=== PATIENT | male | born 1980 | race African-American/Black ===

== ENCOUNTER 2016-07-29 08:53 | Emergency (ER) | payer OTHER ==
[2016-07-29 08:58] VITALS: BP 145/74; PULSE 77; TEMP 98; BMI 27.7
--- NOTE | 2016-07-29 09:42 | PDOC ---
History of Present Illness - General History Source: Patient Exam Limitations: No Limitations - History of Present Illness Initial Comments: 07/29/16 11:47 The patient is a 35 year old male with a significant past medical history of migraines, anxiety, substance abuse, who presents to the ED requesting detox. Patient states he used cocaine and drank alcohol last night. On labs, patient was not shown to have alcohol, or cocaine in his system. Patient denies chest pain, SOB, fever, chills, nausea, vomiting. <Lance Clay - Last Filed: 07/29/16 11:47> <Cristina Dennison - Last Filed: 07/29/16 11:54> - General Chief Complaint: Substance Abuse Stated Complaint: WITHDRAW Time Seen by Provider: 07/29/16 09:21 Past History <Lance Clay - Last Filed: 07/29/16 11:47> - Past Medical History Anemia: No Asthma: No Cancer: No Cardiac Disorders: No CVA: No COPD: No CHF: No Dementia: No Diabetes: No GI Disorders: No Disorders: No HTN: Yes Hypercholesterolemia: No Kidney Stones: No Psychiatric Problems: Yes (BIPOLAR; MIGRAINE;SCHIZOAFFECTIVEDISORDER) Suicide Attempt (Hx): No Seizures: No Thyroid Disease: No - Surgical History Abdominal Surgery: No Appendectomy: No Cardiac Surgery: No Cholecystectomy: No Lung Surgery: No Neurologic Surgery: No Orthopedic Surgery: No - Reproductive History Testicular Surgery: No - Immunization History Immunization Up to Date: Yes - Psycho/Social/Smoking Cessation Hx Anxiety: Yes Suicidal Ideation: No Smoking History: Never smoked Have you smoked in the past 12 months: Yes Number of Cigarettes Smoked Daily: 20 Information on smoking cessation initiated: No 'Breaking Loose' booklet given: 01/04/16 Hx Alcohol Use: Yes Drug/Substance Use Hx: Yes Substance Use Type: Alcohol, Cocaine, Marijuana Hx Substance Use Treatment: Yes <Cristina Dennison - Last Filed: 07/29/16 11:54> - Past Medical History Allergies/Adverse Reactions: Allergies Allergy/AdvReac Type Severity Reaction Status Date / Time No Known Allergies Allergy Verified 07/29/16 08:58 Home Medications: Ambulatory Orders NK [No Known Home Medication] 07/29/16 Review of Systems - Review of Systems Able to Perform ROS?: Yes Comments:: 07/29/16 11:47 GENERAL/CONSTITUTIONAL: No fever or chills. No weakness. HEAD, EYES, EARS, NOSE AND THROAT: No change in vision. No ear pain or discharge. No sore throat. CARDIOVASCULAR: No chest pain or shortness of breath. RESPIRATORY: No cough, wheezing, or hemoptysis. GASTROINTESTINAL: No nausea, vomiting, diarrhea or constipation. GENITOURINARY: No dysuria, frequency, or change in urination. MUSCULOSKELETAL: No joint or muscle swelling or pain. No neck or back pain. SKIN: No rash NEUROLOGIC: No headache, vertigo, loss of consciousness, or change in strength/ sensation. ENDOCRINE: No increased thirst. No abnormal weight change. HEMATOLOGIC/LYMPHATIC: No anemia, easy bleeding, or history of blood clots. ALLERGIC/IMMUNOLOGIC: No hives or skin allergy. <Lance Clay - Last Filed: 07/29/16 11:47> *Physical Exam - Vital Signs Last Vital Signs Temp Pulse Resp BP Pulse Ox 98 F 77 18 145/74 100 07/29/16 08:57 07/29/16 08:57 07/29/16 08:57 07/29/16 08:57 07/29/16 08:57 - Physical Exam Comments: 07/29/16 11:47 GENERAL: Awake, alert, and fully oriented, in no acute distress. Pretending to be falling asleep. HEAD: No signs of trauma EYES: PERRLA, EOMI, sclera anicteric, conjunctiva clear ENT: Auricles normal inspection, hearing grossly normal, nares patent, oropharynx clear without exudates. Moist mucosa NECK: Normal ROM, supple, no lymphadenopathy, JVD, or masses LUNGS: Breath sounds equal, clear to auscultation bilaterally. No wheezes, and no crackles HEART: Regular rate and rhythm, normal S1 and S2, no murmurs, rubs or gallops ABDOMEN: Soft, nontender, normoactive bowel sounds. No guarding, no rebound. No masses EXTREMITIES: Normal range of motion, no edema. No clubbing or cyanosis. No cords, erythema, or tenderness. Hands: no tremors. NEUROLOGICAL: Cranial nerves II through XII grossly intact. Normal speech, normal gait SKIN: Warm, Dry, normal turgor, no rashes or lesions noted. <Lance Clay - Last Filed: 07/29/16 11:47> - Vital Signs Last Vital Signs Temp Pulse Resp BP Pulse Ox 98 F 77 18 145/74 100 07/29/16 08:57 07/29/16 08:57 07/29/16 08:57 07/29/16 08:57 07/29/16 08:57 <Cristina Dennison - Last Filed: 07/29/16 11:54> ED Treatment Course - LABORATORY CBC & Chemistry Diagram: 07/29/16 09:42 07/29/16 10:24 - ADDITIONAL ORDERS Additional order review: Laboratory Results 07/29/16 07/29/16 07/29/16 10:24 10:24 10:24 Sodium 145 Potassium 3.8 Chloride 106 Carbon Dioxide 31 Anion Gap 8 BUN 17 Creatinine 1.0 Creat Clearance w eGFR > 60 Random Glucose 75 D Calcium 8.9 Total Bilirubin 0.4 AST 20 D ALT 21 D Alkaline Phosphatase 82 Total Protein 6.9 Albumin 3.9 Opiates Screen Negative Methadone Screen Negative Barbiturate Screen Negative Phencyclidine Screen Positive Ur Amphetamines Screen Negative MDMA (Ecstasy) Screen Negative Benzodiazepines Screen Negative Cocaine Screen Negative U Marijuana (THC) Screen Negative Alcohol, Quantitative < 5.0 07/29/16 09:42 RBC 4.57 MCV 90.5 MCHC 32.9 RDW 13.6 MPV 8.7 Neutrophils % 64.9 Lymphocytes % 23.6 Monocytes % 7.5 Eosinophils % 3.0 Basophils % 1.0 <Lance Clay - Last Filed: 07/29/16 11:47> - LABORATORY CBC & Chemistry Diagram: 07/29/16 09:42 07/29/16 10:24 <Cristina Dennison - Last Filed: 07/29/16 11:54> Medical Decision Making - Medical Decision Making 07/29/16 11:52 Patient states he needs detox from cocaine and alcohol. His tox screen was negative for both, but positive for PCP. He has no hand tremors, no tongue fasciculations. Sleeping comfortably in bed. No signs of withdrawal. Stable for DC home. Will give him information for [facility] if he wishes to go in the future, but there is no emergent need for transfer there at present. <Cristina Dennison - Last Filed: 07/29/16 11:54> *DC/Admit/Observation/Transfer - Attestations Scribe Attestion: 07/29/16 11:48 Documentation prepared by Lance Clay, acting as medical parasitologist for Cristina Dennison MD, MD. <Lance Clay - Last Filed: 07/29/16 11:47> - Discharge Dispostion Admit: No <Cristina Dennison - Last Filed: 07/29/16 11:54> Diagnosis at time of Disposition: Substance abuse - Discharge Dispostion Disposition: HOME Condition at time of disposition: Stable - Patient Instructions Printed Discharge Instructions: DI for Drug Abuse and Drug Addiction Additional Instructions: [place] [id number]
[2016-07-29 10:07] LABS: MCH 29.8 pg (25.7-33.7); MCHC 32.9 g/dl (32.0-35.9); MEAN CELL VOLUME 90.5 fl (80-96); MEAN PLT VOLUME 8.7 fl (7.5-11.1); NEUTROPHILS 64.9 % (42.8-82.8); PLATELET COUNT 198 K/MM3 (134-434); RDW 13.6 % (11.9-15.9)
[2016-07-29 10:46] LABS: ALBUMIN 3.9 g/dl (3.4-5.0); ALK PHOS 82 U/L (45-117); ANION GAP 8 (8-16); BILIRUBIN,TOTAL 0.4 mg/dL (0.2-1.0); CALCIUM 8.9 mg/dL (8.5-10.1); CO2 31 mmol/L (21-32); GLUCOSE,RANDOM 75 mg/dL (74-106); SGOT/AST 20 U/L (15-37); SGPT/ALT 21 U/L (12-78); TOT PROT 6.9 g/dl (6.4-8.2)
[2016-07-29 11:21] LABS: URINE MARIJUANA THC NEGATIVE ng/ml (CUTOFF=50)
--- NOTE | 2016-08-01 17:19 | EKG ---
Test Reason : Blood Pressure : / mmHG Vent. Rate : 062 BPM Atrial Rate : 062 BPM P-R Int : 152 ms QRS Dur : 082 ms QT Int : 418 ms P-R-T Axes : 046 049 058 degrees QTc Int : 424 ms NORMAL SINUS RHYTHM WITH SINUS ARRHYTHMIA NORMAL ECG NO PREVIOUS ECGS AVAILABLE Confirmed by CELI OLMEDO MD ([id number]) on 08/01/2016 5:18:48 PM Referred By: Confirmed By:CELI OLMEDO MD
== END 2016-07-29 12:19 | disposition home or self-care (01) ==
LOC: JER 08:53
DX: F14.10 Cocaine abuse, uncomplicated (principal); F10.10 Alcohol abuse, uncomplicated; F31.9 Bipolar disorder, unspecified; F25.9 Schizoaffective disorder, unspecified; G43.909 Migraine, unspecified, not intractable, without status migrainosus
CPT/HCPCS: 36415; 80053; 80307; 85025; 93005; 93010; 99284-25

== ENCOUNTER 2016-09-07 20:44 | Emergency (ER) | payer OTHER ==
[2016-09-07 21:01] VITALS: BP 134/70; PULSE 92; TEMP 98.1; BMI 27.8
[2016-09-07] MEDS ORDERED: ACETAMINOPHEN 325 MG TABLET (FP) PO ONE (21:51)
--- NOTE | 2016-09-07 21:51 | PDOC ---
History of Present Illness - General Chief Complaint: Back Pain Stated Complaint: BACK PAIN Time Seen by Provider: 09/07/16 21:42 History Source: Patient Exam Limitations: Intoxication - History of Present Illness Initial Comments: CHIEF COMPLAINT: 36 y/o afebrile male with no significant PMH c/o low back pain for a few days. HISTORY OF PRESENT ILLNESS: He states he wasn't doing anything when it started. He hasn't taken anything for the pain. He denies trauma to back, fall , saddle anesthesia, numbness/tingling to toes or fingers. The history and ROS were very difficulty to obtain secondary to the fact that the patient had admittedly smoked 5 blunts prior to coming to the ER. Vital signs on arrival are within normal limits. REVIEW OF SYSTEMS: GENERAL/CONSTITUTIONAL: No fever MUSCULOSKELETAL: +back pain SKIN: No rash or easy bruising. NEUROLOGIC: No headache. PHYSICAL EXAM: GENERAL: The patient is alert to verbal stimulation. The patient is verbal only after sternal rub. He smells of marijuana. HEAD: Normal with no signs of trauma. ABDOMEN: Soft, non-distended, non-tender even to deep palpation, no hepatomegaly or splenomegaly, no masses. BACK: Minimal TTP of left lumbar paravertebral muscles. No TTP of midline lumbar spine. No step offs of lumbar spine. EXTREMITIES: Normal range of motion, no edema. NEUROLOGICAL: normal gait. CN II-XII grossly intact. No saddle anesthesia. SKIN: Warm, dry, normal turgor, no rashes or lesions noted. Past History - Past Medical History Allergies/Adverse Reactions: Allergies Allergy/AdvReac Type Severity Reaction Status Date / Time No Known Allergies Allergy Verified 09/07/16 20:58 Home Medications: Ambulatory Orders NK [No Known Home Medication] 07/29/16 Anemia: No Asthma: No Cancer: No Cardiac Disorders: No CVA: No COPD: No CHF: No Dementia: No Diabetes: No GI Disorders: No Disorders: No HTN: Yes Hypercholesterolemia: No Kidney Stones: No Psychiatric Problems: Yes (BIPOLAR; MIGRAINE;SCHIZOAFFECTIVEDISORDER) Suicide Attempt (Hx): No Seizures: No Thyroid Disease: No - Surgical History Abdominal Surgery: No Appendectomy: No Cardiac Surgery: No Cholecystectomy: No Lung Surgery: No Neurologic Surgery: No Orthopedic Surgery: No - Reproductive History Testicular Surgery: No - Immunization History Immunization Up to Date: Yes - Psycho/Social/Smoking Cessation Hx Anxiety: Yes Suicidal Ideation: No Smoking History: Never smoked Have you smoked in the past 12 months: Yes Number of Cigarettes Smoked Daily: 20 Information on smoking cessation initiated: No 'Breaking Loose' booklet given: 01/04/16 Hx Alcohol Use: No Drug/Substance Use Hx: No Substance Use Type: Alcohol, Cocaine, Marijuana Hx Substance Use Treatment: Yes Trauma Specific PMHX - Complaint Specific PMHX Arthritis: No *Physical Exam - Vital Signs Last Vital Signs Temp Pulse Resp BP Pulse Ox 98.1 F 92 H 14 134/70 96 09/07/16 20:58 09/07/16 20:58 09/07/16 20:58 09/07/16 20:58 09/07/16 20:58 Medical Decision Making - Medical Decision Making A/P: 36 y/o obese male with atraumatic muscular left low back pain without sciatica. Plan is as follows: 1. PO tylenol The patient will be discharged to home. Suggested he take tylenol or motrin at home for the pain, stretch and use heating pad for comfort. Pt instructed to f/ u with Dr. Ledezma within 1 week and return to the ER with any worsening or concerning symptoms. The patient verbalizes understanding of all instructions, has no further questions and is awaiting discharge. *DC/Admit/Observation/Transfer Diagnosis at time of Disposition: Back pain Qualifiers: Back pain location: low back pain Chronicity: acute Back pain laterality: left Sciatica presence: without sciatica Qualified Code(s): M54.5 - Low back pain - Referrals Referrals: Gael Ledezma MD [Staff Physician] - - Patient Instructions Printed Discharge Instructions: DI for Low Back Pain Additional Instructions: Discharge instructions: -Take tylenol or motrin for pain -Apply heat to low back to help with pain -Follow up with Dr. Ledezma within 1 week -Return to the ER with any worsening or concerning symptoms
[2016-09-07] MEDS ORDERED: ACETAMINOPHEN 325 MG TABLET (FP) ONE (22:02)
== END 2016-09-07 22:07 | disposition home or self-care (01) ==
LOC: JERFT 20:44
DX: M54.5 Low back pain (principal); I10 Essential (primary) hypertension; F31.9 Bipolar disorder, unspecified; F25.9 Schizoaffective disorder, unspecified; F12.10 Cannabis abuse, uncomplicated
CPT/HCPCS: 99281-25

== ENCOUNTER 2016-09-30 23:07 | Emergency (ER) | payer OTHER ==
[2016-09-30 23:38] VITALS: BP 161/86; PULSE 76; TEMP 98.3; BMI 34.0
--- NOTE | 2016-09-30 23:56 | PDOC ---
History of Present Illness - General History Source: Patient Exam Limitations: No Limitations - History of Present Illness Initial Comments: 10/01/16 01:02 The patient is a 36-year-old male with a significant past medical history of anxiety, bipolar disorder, schizoaffective disorder, migraines, and presents to the emergency department complaining of panic attacks, right ear discomfort, and headache for 2 hours. He reports the headache starts on the right forehead and radiates to the right ear and posterior head. He states he has been experiencing some schizophrenic symptoms, and has been hearing voices. He reports recent substance abuse of cocaine and heroin. He reports dysuria and a subjective fever recently. The patient denies chest pain, palpitations, shortness of breath, and dizziness. The patient denies fever, chills, nausea, vomit, diarrhea and constipation. The patient denies frequency, urgency and hematuria. Allergies: NKDA Past Surgical History: None reported. Social History: Alcohol and substance abuse. Denies smoking. <Carolee Mcadams - Last Filed: 10/01/16 01:20> <Lacey Fontana - Last Filed: 10/02/16 01:09> - General Chief Complaint: Psychiatric Stated Complaint: anxiety Time Seen by Provider: 09/30/16 23:30 Past History <Carolee Mcadams - Last Filed: 10/01/16 01:20> - Past Medical History Anemia: No Asthma: No Cancer: No Cardiac Disorders: No CVA: No COPD: No CHF: No Dementia: No Diabetes: No GI Disorders: No Disorders: No HTN: Yes Hypercholesterolemia: No Kidney Stones: No Psychiatric Problems: Yes (BIPOLAR; MIGRAINE;SCHIZOAFFECTIVEDISORDER) Suicide Attempt (Hx): No Seizures: No Thyroid Disease: No - Surgical History Abdominal Surgery: No Appendectomy: No Cardiac Surgery: No Cholecystectomy: No Gastric Stapling: No GI Surgery: No Lung Surgery: No Neurologic Surgery: No Orthopedic Surgery: No - Reproductive History Testicular Surgery: No - Immunization History Immunization Up to Date: Yes - Psycho/Social/Smoking Cessation Hx Anxiety: Yes Suicidal Ideation: No Smoking History: Never smoked Have you smoked in the past 12 months: Yes Number of Cigarettes Smoked Daily: 20 Information on smoking cessation initiated: No 'Breaking Loose' booklet given: 01/04/16 Hx Alcohol Use: Yes Drug/Substance Use Hx: Yes Substance Use Type: Alcohol, Cocaine, Marijuana Hx Substance Use Treatment: Yes <Lacey Fontana - Last Filed: 10/02/16 01:09> - Past Medical History Allergies/Adverse Reactions: Allergies Allergy/AdvReac Type Severity Reaction Status Date / Time No Known Allergies Allergy Verified 09/30/16 23:39 Home Medications: Ambulatory Orders Albuterol Sulfate Inhaler - [Ventolin Hfa Inhaler -] 1 - 2 inh PO Q4H 09/30/16 Bupropion HCl [Wellbutrin -] 150 mg PO DAILY 09/30/16 Review of Systems - Review of Systems Able to Perform ROS?: Yes Comments:: 10/01/16 01:02 CONSTITUTIONAL: Present: (+) subjective fever Absent: chills, diaphoresis, generalized weakness, malaise, loss of appetite HEENT: Present: (+) ear pain Absent: rhinorrhea, nasal congestion, throat pain, throat swelling, difficulty swallowing, mouth swelling, eye pain, visual changes CARDIOVASCULAR: Absent: chest pain, syncope, palpitations, irregular heart rate, lightheadedness , peripheral edema RESPIRATORY: Absent: cough, shortness of breath, dyspnea with exertion, orthopnea, wheezing, stridor, hemoptysis GASTROINTESTINAL: Absent: abdominal pain, abdominal distension, nausea, vomiting, diarrhea, constipation, melena, hematochezia GENITOURINARY: Present: (+) dysuria Absent: frequency, urgency, hesitancy, hematuria, flank pain, genital pain MUSCULOSKELETAL: Absent: myalgia, arthralgia, joint swelling SKIN: Absent: rash, itching, pallor HEMATOLOGIC/IMMUNOLOGIC: Absent: easy bleeding, easy bruising, lymphadenopathy, frequent infections ENDOCRINE: Absent: unexplained weight gain, unexplained weight loss, heat intolerance, cold intolerance NEUROLOGIC: Present: (+) headache Absent: focal weakness or paresthesias, dizziness, unsteady gait, seizure, mental status changes, bladder or bowel incontinence PSYCHIATRIC: Present: (+) anxiety Absent: depression, hallucinations. <Carolee Mcadams - Last Filed: 10/01/16 01:20> *Physical Exam - Vital Signs Last Vital Signs Temp Pulse Resp BP Pulse Ox 98.3 F 76 19 161/86 99 09/30/16 23:36 09/30/16 23:36 09/30/16 23:36 09/30/16 23:36 09/30/16 23:36 - Physical Exam Comments: 10/01/16 01:02 GENERAL: Well developed, well nourished. Awake and alert. No acute distress. HEENT: (+) TM is sclerotic and mildly erythematous. Normocephalic, atraumatic. PERRLA, EOMI. No conjunctival pallor. Sclera are non-icteric. Moist mucous membranes. Oropharynx is clear. NECK: Supple. Full ROM. No JVD. Carotid pulses 2+ and symmetric, without bruits. No thyromegaly. No lymphadenopathy. CARDIOVASCULAR: Regular rate and rhythm. No murmurs, rubs, or gallops. Distal pulses are 2+ and symmetric. PULMONARY: No evidence of respiratory distress. Lungs clear to auscultation bilaterally. No wheezing, rales or rhonchi. ABDOMINAL: Soft. Non-tender. Non-distended. No rebound or guarding. No organomegaly. Normoactive bowel sounds. MUSCULOSKELETAL Normal range of motion at all joints. No bony deformities or tenderness. No CVA tenderness. EXTREMITIES: No cyanosis. No clubbing. No edema. No calf tenderness. SKIN: Warm and dry. Normal capillary refill. No rashes. No jaundice. NEUROLOGICAL: Alert, awake, appropriate. Cranial nerves 2-12 intact. No deficits to light touch and temperature in face, upper extremities and lower extremities. No motor deficits in the in face, upper extremities and lower extremities. Normoreflexic in the upper and lower extremities. Normal speech. Toes are down- going bilaterally. Gait is normal without ataxia. PSYCHIATRIC: Cooperative. Good eye contact. Appropriate mood and affect. <Carolee Mcadams - Last Filed: 10/01/16 01:20> - Vital Signs Last Vital Signs Temp Pulse Resp BP Pulse Ox 98.3 F 76 19 161/86 99 09/30/16 23:36 09/30/16 23:36 09/30/16 23:36 09/30/16 23:36 09/30/16 23:36 <Lacey Fontana - Last Filed: 10/02/16 01:09> Medical Decision Making - Medical Decision Making 10/02/16 01:06 Pt is bipolar and a polysubstance abuser who states that he wants detox. He comes to the ER because he states that he has been partying a lot and having a lot of sex. Pt wants me to check his genitals and exposes himself. He has no rash and no penile discharge. STD urine culture was sent. Rest of exam is normal. Pt'ss labs are normal and he will be sent to detox. I spoke to Dr. Johnson who accepted him. <Lacey Fontana - Last Filed: 10/02/16 01:09> *DC/Admit/Observation/Transfer - Attestations Scribe Attestion: 10/01/16 01:02 Documentation prepared by Carolee Mcadams, acting as biomedical manager for Lacey Fontana MD. <Carolee Mcadams - Last Filed: 10/01/16 01:20> - Discharge Dispostion Admit: No <Lacey Fontana - Last Filed: 10/02/16 01:09> Diagnosis at time of Disposition: Substance abuse, Poly-drug misuser - Discharge Dispostion Disposition: I.P. ALCOHOL/SUBS ABUSE REHAB Condition at time of disposition: Stable - Referrals Referrals: STAFF,NOT ON [Primary Care Provider] - - Patient Instructions Printed Discharge Instructions: Drug Abuse and Drug Addiction
[2016-10-01 01:12] LABS: URINE MARIJUANA THC POSITIVE ng/ml (CUTOFF=50)
== END 2016-10-01 01:59 | disposition other institution (70) ==
LOC: JER 23:07 → SUPCPDRO 23:07 → JER 10-01 01:59
DX: F31.9 Bipolar disorder, unspecified (principal); F41.9 Anxiety disorder, unspecified; F25.9 Schizoaffective disorder, unspecified; F11.10 Opioid abuse, uncomplicated; F14.10 Cocaine abuse, uncomplicated
CPT/HCPCS: 36415; 80307; 87491; 87591; 99282-25

== ENCOUNTER 2016-10-01 02:39 | Inpatient (IN) | payer OTHER ==
[2016-10-01 03:16] VITALS: BMI 34.7
--- NOTE | 2016-10-01 03:16 | HP ---
CIWA Score - CIWA Score Nausea/Vomitin Muscle Tremors: 3 Anxiety: 3 Agitation: 2 Paroxysmal Sweats: 1-Minimal Palms Moist Orientation: 0-Oriented Tacttile Disturbances: 2-Mild Itch/Numbness/Burn Auditory Disturbances: 2-Mild Harshness/Frighten Visual Disturbances: 2-Mild Sensitivity Headache: 2-Mild CIWA-Ar Total Score: 20 Admission ROS BHS - HPI Chief Complaint: refer for er at [facility] clear to come in for detox from alcohol,cocaine,marijuana, pcp, Allergies/Adverse Reactions: Allergies Allergy/AdvReac Type Severity Reaction Status Date / Time No Known Allergies Allergy Verified 09/30/16 23:39 History of Present Illness: this 36 years old male with alcohol,cocaine,marijuana dependence with pcp dependence,seeking detox,last detox [facility] 12/24/14 to 12/28/14 clear by [facility] er to come in for detox mmtp 50 mgs/day,last medicated 2 days ago stated by patient Exam Limitations: No Limitations - Ebola screening Have you traveled outside of the country in the last 21 days: No - Review of Systems Constitutional: Malaise, Night Sweats, Changes in sleep, Weakness EENT: reports: Nose Congestion Respiratory: reports: No Symptoms reported Cardiac: reports: Palpitations GI: reports: Nausea, Poor Appetite, Abdominal cramping : reports: No Symptoms Reported Musculoskeletal: reports: Back Pain, Muscle Pain Integumentary: reports: Dryness Neuro: reports: Tremors Endocrine: reports: No Symptoms Reported Hematology: reports: No Symptoms Reported Psychiatric: reports: Judgement Intact, Mood/Affect Appropiate, Orientated x3 Patient History - Patient Medical History Hx Anemia: No Hx Asthma: No Hx Chronic Obstructive Pulmonary Disease (COPD): No Hx Cancer: No Hx Cardiac Disorders: No Hx Congestive Heart Failure: No Hx Hypertension: Yes (no med) Hx Hypercholesterolemia: No Hx Pacemaker: No HX Cerebrovascular Accident: No Hx Seizures: No Hx Dementia: No Hx Diabetes: No Hx Gastrointestinal Disorders: No Hx Liver Disease: No Hx Genitourinary Disorders: No Hx Sexually Transmitted Disorders: No Hx Renal Disease (ESRD): No Hx Thyroid Disease: No Hx Human Immunodeficiency Virus (HIV): No Hx Hepatitis C: No Hx Depression: No Hx Suicide Attempt: No Hx Bipolar Disorder: No Hx Schizophrenia: No Other Medical History: no suicidal,mno homicidal - Patient Surgical History Past Surgical History: No Hx Neurologic Surgery: No Hx Cataract Extraction: No Hx Cardiac Surgery: No Hx Lung Surgery: No Hx Breast Surgery: No Hx Breast Biopsy: No Hx Abdominal Surgery: No Hx Appendectomy: No Hx Cholecystectomy: No Hx Genitourinary Surgery: No Hx Section: No Hx Orthopedic Surgery: No Hx Hysterectomy: No Anesthesia Reaction: No - PPD History Documented Results: Negative w/o proof Date: 12/26/14 Results: 0 mm PPD to be Administered?: Yes - Smoking Cessation Smoking history: Never smoked Have you smoked in the past 12 months: Yes Aproximately how many cigarettes per day: 20 Hx Chewing Tobacco Use: No Initiated information on smoking cessation: Yes 'Breaking Loose' booklet given: 10/01/16 - Substance & Tx. History Hx Alcohol Use: Yes Hx Substance Use: Yes Substance Use Type: Alcohol, Cocaine, Marijuana Hx Substance Use Treatment: Yes ([facility] 12/24/14 to 12/28/14) - Substances Abused Alcohol Route: Oral Frequency: Daily Amount used: 1 pint of vodka Age of first use: 34 Date of Last Use: 09/30/16 Cocaine Route: Inhalation Frequency: 1-2 times per week Amount used: 100$ Age of first use: 15 Date of Last Use: 09/30/16 Marijuana/Hashish Route: Smoking Frequency: Daily Amount used: 20$ Age of first use: 17 Date of Last Use: 09/30/16 PCP Route: Smoking Frequency: Daily Amount used: 20$ Age of first use: 17 Date of Last Use: 09/30/16 Family Disease History - Family Disease History Family History: Denies Admission Physical Exam [facility] - Vital Signs Vital Signs: Vital Signs Temperature 97.5 F L 10/01/16 03:30 Pulse Rate 90 10/01/16 03:30 Respiratory Rate 20 10/01/16 03:30 Blood Pressure 130/80 10/01/16 03:30 O2 Sat by Pulse Oximetry (%) - Physical General Appearance: Yes: Moderate Distress, Tremorous, Irritable, Anxious HEENTM: Yes: Normal ENT Inspection, RAMON, Pharynx Normal Respiratory: Yes: Lungs Clear, Normal Breath Sounds, No Respiratory Distress Neck: Yes: Within Normal Limits Breast: Yes: Within Normal Limits Cardiology: Yes: Within Normal Limits, Regular Rhythm, Regular Rate, S1, S2 Abdominal: Yes: Within Normal Limits, Normal Bowel Sounds, Non Tender, Soft Genitourinary: Yes: Within Normal Limits Back: Yes: Normal Inspection, Muscle Spasm Musculoskeletal: Yes: Back pain, Muscle Pain Extremities: Yes: Within Normal Limits, Normal Inspection, Normal Range of Motion, Tremors 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, Fully Oriented, Alert, Motor Strength 5/5 Integumentary: Yes: Dry Lymphatic: Yes: Within Normal Limits - Diagnostic (1) Alcohol dependence with withdrawal, unspecified Current Visit: Yes Status: Acute (2) Cannabis dependence Current Visit: No Status: Acute (3) Cocaine dependence Current Visit: No Status: Acute (4) PCP abuse Current Visit: Yes Status: Acute (5) HTN (hypertension) Current Visit: No Status: Acute (6) Nicotine dependence Current Visit: No Status: Acute (7) Methadone maintenance therapy patient Current Visit: Yes Status: Acute Cleared for Admission [facility] - Detox or Rehab [facility] Level of Care: Medically Managed Detox Regimen/Protocol: Librium (blood for toxicology from [facility] for pcp, cocaine,thc) [facility] Breath Alcohol Content Breath Alcohol Content: 0 Vital Signs - Vital Signs Vital Signs Refused: No Temperature: 97.5 F Temperature Source: Oral Pulse Rate: 90 Respiratory Rate: 20 Blood Pressure: 130/80 BP Location: Left Arm - Height Height: 6 ft 2 in - Weight Weight: 270 lb Weight Measurement Method: Estimated by Patient Body Mass Index (BMI): 34.7
[2016-10-01] MEDS ORDERED: MAGNESIUM HYDROX 2400MG/30ML ORAL SUSPENSION 30 ML CUP PO PRN (03:35)
[2016-10-01] MEDS ORDERED: LOPERAMIDE HCL 2 MG CAPSULE PO PRN (03:35)
[2016-10-01] MEDS ORDERED: chlordiazePOXIDE HCL 25 MG CAPSULE PO PRN (03:35)
[2016-10-01] MEDS ORDERED: P-EPHED 60MG/TRIPROLIDI 2.5MG TABLET PO PRN (03:35)
[2016-10-01] MEDS ORDERED: MENTHOL/PHENOL 1 EACH UD MM PRN (03:35)
[2016-10-01] MEDS ORDERED: hydrOXYzine PAMOATE 50 MG CAPSULE (FP) PO PRN (03:35)
[2016-10-01] MEDS ORDERED: chlordiazePOXIDE HCL 25 MG CAPSULE PO ONE (03:35)
[2016-10-01] MEDS ORDERED: MAG HYDROX/AL HYDROX/SIMETH 30 ML UNIT-DOSE CUP PO PRN (03:35)
[2016-10-01] MEDS ORDERED: MAGNESIUM CITRATE 300 ML BOTTLE PO PRN (03:35)
[2016-10-01] MEDS ORDERED: guaiFENesin/D-METHORPHAN HB 10 ML UNIT-DOSE CUPS PO PRN (03:35)
[2016-10-01] MEDS: chlordiazePOXIDE HCL 25 MG CAPSULE PO SCH ×4 (07:19→22:39)
[2016-10-01 10:31] LABS: ALBUMIN 3.3 g/dl (3.4-5.0); ALK PHOS 84 U/L (45-117); ANION GAP 9 (8-16); BILIRUBIN,TOTAL 0.3 mg/dL (0.2-1.0); CALCIUM 8.6 mg/dL (8.5-10.1); CO2 29 mmol/L (21-32); COCKROFT - GAULT 176.9; GLUCOSE,RANDOM 90 mg/dL (74-106); SGOT/AST 13 U/L (15-37); SGPT/ALT 20 U/L (12-78); TOT PROT 5.9 g/dl (6.4-8.2)
[2016-10-01] MEDS: PRENATAL VITAMINS W/ FOLIC ACID TABLET (FP) PO SCH (10:52)
[2016-10-01] MEDS: NICOTINE 21 MG/24 HOURS TOPICAL PATCH TD SCH (10:53)
--- NOTE | 2016-10-01 11:09 | PN ---
[facility] CIWA - CIWA Score Nausea/Vomitin Muscle Tremors: 3 Anxiety: 3 Agitation: 2 Paroxysmal Sweats: 1-Minimal Palms Moist Orientation: 0-Oriented Tacttile Disturbances: 1-Very Mild Itch/Numbness Auditory Disturbances: 1-Very Mild Visual Disturbances: 1-Very Mild Sensitivity Headache: 2-Mild CIWA-Ar Total Score: 17 BHS Progress Note (SOAP) Subjective: ALERT,IRRITABLE,ANXIOUS,INTERRUPTED SLEEP,TREMOR MORE INFORMATION FROM PATIENT HE NEVER BEEN IN METHADONE PROGRAM,BUY METHADONE OFF THE STREET Objective: 10/01/16 11:07 10/01/16 11:07 Vital Signs Temperature 97 F L 10/01/16 09:34 Pulse Rate 72 10/01/16 09:34 Respiratory Rate 18 10/01/16 09:34 Blood Pressure 158/88 10/01/16 09:34 O2 Sat by Pulse Oximetry (%) EKG NSR,NORMAL ECG Laboratory Last Values Sodium 144 mmol/L (136-145) 10/01/16 07:40 Potassium 3.8 mmol/L (3.5-5.1) 10/01/16 07:40 Chloride 106 mmol/L (98-107) 10/01/16 07:40 Carbon Dioxide 29 mmol/L (21-32) 10/01/16 07:40 Anion Gap 9 (8-16) 10/01/16 07:40 BUN 13 mg/dL (7-18) D 10/01/16 07:40 Creatinine 1.0 mg/dL (0.7-1.3) 10/01/16 07:40 Creat Clearance w eGFR > 60 (>60) 10/01/16 07:40 Random Glucose 90 mg/dL (74-106) 10/01/16 07:40 Calcium 8.6 mg/dL (8.5-10.1) 10/01/16 07:40 Total Bilirubin 0.3 mg/dL (0.2-1.0) D 10/01/16 07:40 AST 13 U/L (15-37) L D 10/01/16 07:40 ALT 20 U/L (12-78) 10/01/16 07:40 Alkaline Phosphatase 84 U/L (45-117) 10/01/16 07:40 Total Protein 5.9 g/dl (6.4-8.2) L 10/01/16 07:40 Albumin 3.3 g/dl (3.4-5.0) L 10/01/16 07:40 LABS PENDING Assessment: 10/01/16 11:09 WITHDRAWAL SYMPTOM Plan: CONTINUE DETOX
--- NOTE | 2016-10-01 11:14 | PN ---
BHS Progress Note Note: ADDENDUM PATIENT IS NOT ON METHADONE PROGRAM,BUY METHADONE OFF THE STREET,
[2016-10-01 11:15] LABS: MCH 29.6 pg (25.7-33.7); MCHC 33.8 g/dl (32.0-35.9); MEAN CELL VOLUME 87.5 fl (80-96); MEAN PLT VOLUME 9.1 fl (7.5-11.1); PLATELET COUNT 201 K/MM3 (134-434); RDW 13.4 % (11.9-15.9); WHITE BLOOD COUNT 8.6 K/mm3 (4.0-10.0)
[2016-10-01] MEDS ORDERED: ALBUTEROL SO4 6.7 GM HFA INHALER IH PRN (11:26)
[2016-10-01] MEDS: diphenhydrAMINE HCL 50 MG CAPSULE PO PRN (22:39)
[2016-10-01] MEDS: THIAMINE HCL 100 MG TABLET (FP) PO SCH (23:42)
[2016-10-02] MEDS: chlordiazePOXIDE HCL 25 MG CAPSULE PO SCH ×4 (06:07→23:09)
[2016-10-02 10:07] LABS: URINE APPEARANCE CLEAR; URINE BILIRUBIN NEGATIVE (NEGATIVE); URINE BLOOD NEGATIVE (NEGATIVE); URINE COLOR STRAW; URINE GLUCOSE (UA) NEGATIVE (NEGATIVE); URINE KETONE NEGATIVE (NEGATIVE); URINE LEUK ESTERASE NEGATIVE (NEGATIVE); URINE NITRITE NEGATIVE (NEGATIVE); URINE PROTEIN NEGATIVE (NEGATIVE); URINE UROBILINOGEN NEGATIVE E.U./dl (0.2-1.0)
[2016-10-02] MEDS: PRENATAL VITAMINS W/ FOLIC ACID TABLET (FP) PO SCH (10:18)
[2016-10-02] MEDS: NICOTINE 21 MG/24 HOURS TOPICAL PATCH TD SCH (10:20)
--- NOTE | 2016-10-02 10:29 | EKG ---
Test Reason : Blood Pressure : / mmHG Vent. Rate : 064 BPM Atrial Rate : 064 BPM P-R Int : 168 ms QRS Dur : 088 ms QT Int : 402 ms P-R-T Axes : 050 043 037 degrees QTc Int : 414 ms NORMAL SINUS RHYTHM NORMAL ECG WHEN COMPARED WITH ECG OF 29-JUL-2016 10:42, NO SIGNIFICANT CHANGE WAS FOUND Confirmed by MD TAWANDA, THIAGO ([id number]) on 10/02/2016 10:29:29 AM Referred By: Confirmed By:THIAGO NEFF MD
--- NOTE | 2016-10-02 11:06 | PN ---
[facility] CIWA - CIWA Score Nausea/Vomitin Muscle Tremors: 3 Anxiety: 3 Agitation: 2 Paroxysmal Sweats: 1-Minimal Palms Moist Orientation: 0-Oriented Tacttile Disturbances: 1-Very Mild Itch/Numbness Auditory Disturbances: 1-Very Mild Visual Disturbances: 1-Very Mild Sensitivity Headache: 2-Mild CIWA-Ar Total Score: 17 BHS Progress Note (SOAP) Subjective: ALERT,IRRITABLE,ANXIOUS,INTERRUPTED SLEEP,PAIN IN THE BODY Objective: 10/02/16 11:05 Vital Signs Temperature 98.1 F 10/02/16 09:52 Pulse Rate 72 10/02/16 09:52 Respiratory Rate 16 10/02/16 09:52 Blood Pressure 156/94 10/02/16 09:52 O2 Sat by Pulse Oximetry (%) Laboratory Last Values WBC 8.6 K/mm3 (4.0-10.0) 10/01/16 07:40 RBC 4.53 M/mm3 (4.00-5.60) 10/01/16 07:40 Hgb 13.4 GM/dL (11.7-16.9) 10/01/16 07:40 Hct 39.7 % (35.4-49) 10/01/16 07:40 MCV 87.5 fl (80-96) 10/01/16 07:40 MCHC 33.8 g/dl (32.0-35.9) 10/01/16 07:40 RDW 13.4 % (11.9-15.9) 10/01/16 07:40 Plt Count 201 K/MM3 (134-434) 10/01/16 07:40 MPV 9.1 fl (7.5-11.1) 10/01/16 07:40 Sodium 144 mmol/L (136-145) 10/01/16 07:40 Potassium 3.8 mmol/L (3.5-5.1) 10/01/16 07:40 Chloride 106 mmol/L (98-107) 10/01/16 07:40 Carbon Dioxide 29 mmol/L (21-32) 10/01/16 07:40 Anion Gap 9 (8-16) 10/01/16 07:40 BUN 13 mg/dL (7-18) D 10/01/16 07:40 Creatinine 1.0 mg/dL (0.7-1.3) 10/01/16 07:40 Creat Clearance w eGFR > 60 (>60) 10/01/16 07:40 Random Glucose 90 mg/dL (74-106) 10/01/16 07:40 Calcium 8.6 mg/dL (8.5-10.1) 10/01/16 07:40 Total Bilirubin 0.3 mg/dL (0.2-1.0) D 10/01/16 07:40 AST 13 U/L (15-37) L D 10/01/16 07:40 ALT 20 U/L (12-78) 10/01/16 07:40 Alkaline Phosphatase 84 U/L (45-117) 10/01/16 07:40 Total Protein 5.9 g/dl (6.4-8.2) L 10/01/16 07:40 Albumin 3.3 g/dl (3.4-5.0) L 10/01/16 07:40 Urine Color Straw 10/02/16 07:00 Urine Appearance Clear 10/02/16 07:00 Urine pH 6.0 (5.0-8.0) 10/02/16 07:00 Urine Protein Negative (NEGATIVE) 10/02/16 07:00 Urine Glucose (UA) Negative (NEGATIVE) 10/02/16 07:00 Urine Ketones Negative (NEGATIVE) 10/02/16 07:00 Urine Blood Negative (NEGATIVE) 10/02/16 07:00 Urine Nitrite Negative (NEGATIVE) 10/02/16 07:00 Urine Bilirubin Negative (NEGATIVE) 10/02/16 07:00 Urine Urobilinogen Negative E.U./dl (0.2-1.0) 10/02/16 07:00 Ur Leukocyte Esterase Negative (NEGATIVE) 10/02/16 07:00 RPR Titer Nonreactive (NONREACTIVE) 10/01/16 07:40 Assessment: 10/02/16 11:06 WITHDRAWAL SYMPTOM Plan: CONTINUE DETOX
--- NOTE | 2016-10-02 12:19 | CONSULT ---
[facility] Psychiatric Consult - Data Date of interview: 10/02/16 Admission source: [facility] Identifying data: Readmission to [facility] for this 36 y/o AA male seeking detox treatment,on ,for alcohol,cocaine,matrijuana and phencyclidine dependence.Patient is ,a father of two,domiciled,unemployed and supported on SSI benefits. Substance Abuse History: - Smoking Cessation. Smoking history: Never smoked. Have you smoked in the past 12 months: Yes. Aproximately how many cigarettes per day: 20. Hx Chewing Tobacco Use: No. Initiated information on smoking cessation: Yes. 'Breaking Loose' booklet given: 10/01/16. - Substance & Tx. History. Hx Alcohol Use: Yes. Hx Substance Use: Yes. Substance Use Type: Alcohol, Cocaine, Marijuana. Hx Substance Use Treatment: Yes ([facility] 12/24/14 to 12/28/14). - Substances Abused. Alcohol. Route: Oral. Frequency: Daily. Amount used: 1 pint of vodka. Age of first use: 34. Date of Last Use: . Cocaine. Route: Inhalation. Frequency: 1-2 times per week. Amount used: 100$. Age of first use: 15. Date of Last Use: 09/30/16. Marijuana/ Hashish. Route: Smoking. Frequency: Daily. Amount used: 20$. Age of first use: 17. Date of Last Use: 09/30/16. PCP. Route: Smoking. Frequency: Daily. Amount used: 20$. Age of first use: 17. Date of Last Use: 09/30/16. Confirmed by patient. Medical History: Obesity,migraine headaches and hypertension. Psychiatric History: Patient reports a history of one psychiatric hospitalization in his lifetime ([facility] in [facility]) .Diagnosed with Schizoaffective Disorder.He indicates that his medications consist of xanax and buspar (no recollection of doses or date of last intake) .Currently on methadone maintenance (50 mg/day).Mr Bridges endorses outpatient psychiatric care at a clinic in [facility] (private psychiatrist ).Denies history of suicide attempts. Physical/Sexual Abuse/Trauma History: Patient denies. Mental Status Exam - Mental Status Exam Alert and Oriented to: Time, Place, Person Cognitive Function: Good Patient Appearance: Unkempt, Disheveled (tall,morbidly obese) Mood: Withdrawn, Anxious Affect: Mood Congruent Patient Behavior: Fatigued, Appropriate, Cooperative Speech Pattern: Clear Voice Loudness: Normal Thought Process: Goal Oriented Thought Disorder: Not Present Hallucinations: Denies Suicidal Ideation: Denies Homicidal Ideation: Denies Insight/Judgement: Poor Sleep: Well Appetite: Good Muscle strength/Tone: Normal Gait/Station: Normal Psychiatric Findings - Problem List ([place] 1, 2,3) (1) Alcohol dependence with withdrawal, unspecified Current Visit: Yes Status: Acute (2) Opioid dependence on agonist therapy Current Visit: Yes Status: Acute (3) Cannabis dependence Current Visit: Yes Status: Acute (4) Cocaine dependence Current Visit: Yes Status: Acute (5) Nicotine dependence Current Visit: Yes Status: Acute (6) PCP abuse Current Visit: Yes Status: Acute (7) Substance induced mood disorder Current Visit: Yes Status: Acute (8) Schizoaffective disorder Current Visit: No Status: Chronic Comment: Self-report. (9) Back pain Current Visit: Yes Status: Chronic Qualifiers: Back pain location: low back pain Chronicity: acute Back pain laterality: left Sciatica presence: without sciatica Qualified Code(s ): M54.5 - Low back pain (10) HTN (hypertension) Current Visit: Yes Status: Chronic - Initial Treatment Plan Initial Treatment Plan: Psychoeducation.Detoxification.Search of pharmacy claims : no data found.Will start buspar 10 mg po bid.Side effects/benefits discussed with patient.He agrees with plan.Observation.
[2016-10-02] MEDS: ACETAMINOPHEN 325 MG TABLET (FP) PO PRN (17:37)
[2016-10-02] MEDS: busPIRone HCL 10 MG TABLET (FP) PO SCH (23:09)
[2016-10-02] MEDS: THIAMINE HCL 100 MG TABLET (FP) PO SCH (23:10)
[2016-10-03] MEDS: IBUPROFEN 400 MG TABLET (FP) PO PRN ×2 (02:29→17:46)
[2016-10-03] MEDS: diphenhydrAMINE HCL 50 MG CAPSULE PO PRN ×2 (02:29→22:35)
[2016-10-03] MEDS: chlordiazePOXIDE 5 MG CAPSULE PO SCH ×4 (05:50→22:35)
[2016-10-03] MEDS: busPIRone HCL 10 MG TABLET (FP) PO SCH ×2 (10:40→22:35)
[2016-10-03] MEDS: PRENATAL VITAMINS W/ FOLIC ACID TABLET (FP) PO SCH (10:40)
[2016-10-03] MEDS: NICOTINE 21 MG/24 HOURS TOPICAL PATCH TD SCH (10:40)
--- NOTE | 2016-10-03 11:57 | PN ---
BHS Progress Note (SOAP) Subjective: ALERT,IRRITABLE,ANXIOUS,INTERRUPTED SLEEP,ACHING PAIN Objective: 10/03/16 11:56 Vital Signs Temperature 97.9 F 10/03/16 10:20 Pulse Rate 74 10/03/16 10:20 Respiratory Rate 18 10/03/16 10:20 Blood Pressure 147/87 10/03/16 10:20 O2 Sat by Pulse Oximetry (%) Assessment: 10/03/16 11:56 WITHDRAWAL SYMPTOM Plan: CONTINUE DETOX
[2016-10-03] MEDS: ACETAMINOPHEN 325 MG TABLET (FP) PO PRN ×2 (14:40→22:35)
[2016-10-03] MEDS: THIAMINE HCL 100 MG TABLET (FP) PO SCH (22:35)
[2016-10-04] MEDS: chlordiazePOXIDE HCL 10 MG CAPSULE PO SCH ×2 (05:29→10:38)
[2016-10-04] MEDS: IBUPROFEN 400 MG TABLET (FP) PO PRN (06:07)
[2016-10-04 10:37] VITALS: BP 139/94; PULSE 70; TEMP 97.7
[2016-10-04] MEDS: PRENATAL VITAMINS W/ FOLIC ACID TABLET (FP) PO SCH (10:38)
[2016-10-04] MEDS: busPIRone HCL 10 MG TABLET (FP) PO SCH (10:38)
[2016-10-04] MEDS: NICOTINE 21 MG/24 HOURS TOPICAL PATCH TD SCH (10:39)
--- NOTE | 2016-10-04 11:21 | DS ---
[facility] Detox Discharge Summary Admission Date: 10/01/16 - History Present History: Alcohol Dependence - Physical Exam Results Vital Signs: Vital Signs Temperature 97.7 F 10/04/16 10:37 Pulse Rate 70 10/04/16 10:37 Respiratory Rate 18 10/04/16 10:37 Blood Pressure 139/94 10/04/16 10:37 O2 Sat by Pulse Oximetry (%) - Treatment Hospital Course: Detox Protocol Followed, Detoxed Safely, Responded well, Discharged Condition Good - Medication Discharge Medications: Ambulatory Orders Albuterol Sulfate Inhaler - [Ventolin Hfa Inhaler -] 1 - 2 inh PO Q4H 09/30/16 Bupropion HCl [Wellbutrin -] 150 mg PO DAILY 09/30/16 - Diagnosis (1) Alcohol dependence with withdrawal, unspecified Current Visit: Yes Status: Chronic Qualifiers: Complication of substance-induced condition: uncomplicated Qualified Code(s): F10.230 - Alcohol dependence with withdrawal, uncomplicated (2) Cannabis dependence Current Visit: Yes Status: Acute (3) Cocaine dependence Current Visit: Yes Status: Chronic Qualifiers: Substance use status: uncomplicated Qualified Code(s): F14.20 - Cocaine dependence, uncomplicated (4) Nicotine dependence Current Visit: Yes Status: Chronic Qualifiers: Nicotine product type: cigarettes Substance use status: uncomplicated Qualified Code(s): F17.210 - Nicotine dependence, cigarettes, uncomplicated (5) Back pain Current Visit: Yes Status: Chronic Qualifiers: Back pain location: low back pain Chronicity: acute Back pain laterality: left Sciatica presence: without sciatica Qualified Code(s ): M54.5 - Low back pain (6) HTN (hypertension) Current Visit: Yes Status: Chronic (7) Anxiety Current Visit: Yes Status: Chronic (8) Schizoaffective disorder Current Visit: Yes Status: Chronic - AMA Did Patient Leave Against Medical Advice: No
== END 2016-10-04 12:11 | disposition home or self-care (01) | DRG 774 ==
LOC: YASAS 02:39 → Y6N 02:43
PROVIDERS: ADMIT Internal Medicine; ATTEND Internal Medicine
PROC: HZ2ZZZZ Detoxification Services for Substance Abuse Treatment (ICD-10-PCS; principal; 2016-10-01)
DX: F10.230 Alcohol dependence with withdrawal, uncomplicated (principal); F14.20 Cocaine dependence, uncomplicated; F12.20 Cannabis dependence, uncomplicated; F16.10 Hallucinogen abuse, uncomplicated; F17.210 Nicotine dependence, cigarettes, uncomplicated; F25.9 Schizoaffective disorder, unspecified; F41.9 Anxiety disorder, unspecified; I10 Essential (primary) hypertension; M54.5 Low back pain; E66.9 Obesity, unspecified; Z68.34 Body mass index [BMI] 34.0-34.9, adult
CPT/HCPCS: 36415; 80053; 81003; 85027; 86593; 93005; 93010

== ENCOUNTER 2016-12-14 20:39 | Emergency (ER) | payer OTHER ==
[2016-12-14 20:59] VITALS: BP 149/85; PULSE 92; TEMP 97.9; BMI 35.5
[2016-12-14] MEDS ORDERED: KETOROLAC TROMETHAMINE 60 MG/2 ML VIAL IM ONE (21:41)
--- NOTE | 2016-12-14 21:51 | PDOC ---
History of Present Illness - General Chief Complaint: Pain Stated Complaint: PAIN Time Seen by Provider: 12/14/16 21:05 History Source: Patient Exam Limitations: No Limitations - History of Present Illness Initial Comments: 12/14/16 22:00 36-year-old male with acute on chronic low back pain including left groin pain. Patient states was playing football which aggravated the above. Patient states symptoms have not worsened in severity and requesting Percocet since he states has taken in the past for the above. Patient denies abdominal pain, difficulty ambulating presently, weakness, or radiation of pain. Patient states history of bipolar, anxiety and states smokes marijuana which relieved his pain a little bit but wants something to the home with. Occurred: reports: just prior to arrival Severity: reports: mild Method of Injury: No: unknown Associated Symptoms (Fall): denies symptoms Past History - Past Medical History Allergies/Adverse Reactions: Allergies Allergy/AdvReac Type Severity Reaction Status Date / Time No Known Allergies Allergy Verified 12/14/16 20:55 Home Medications: Ambulatory Orders Albuterol Sulfate Inhaler - [Ventolin Hfa Inhaler -] 1 - 2 inh PO Q4H 09/30/16 Bupropion HCl [Wellbutrin -] 150 mg PO DAILY 09/30/16 Alprazolam [Xanax] 2 mg PO BID 12/14/16 Haloperidol [Haldol -] 2 mg PO BID 12/14/16 Oxycodone HCl/Acetaminophen [Percocet 5-325 mg Tablet] 1 tab PO Q4H 12/14/16 Anemia: No Asthma: Yes Cancer: No Cardiac Disorders: No CVA: No COPD: No CHF: No Dementia: No Diabetes: No GI Disorders: No Disorders: No HTN: Yes (no med) Hypercholesterolemia: No Kidney Stones: No Liver Disease: No Psychiatric Problems: Yes (BIPOLAR; MIGRAINE;SCHIZOAFFECTIVEDISORDER) Suicide Attempt (Hx): No Seizures: No Thyroid Disease: No - Surgical History Abdominal Surgery: No Appendectomy: No Cardiac Surgery: No Cholecystectomy: No Gastric Stapling: No GI Surgery: No Lung Surgery: No Neurologic Surgery: No Orthopedic Surgery: No - Reproductive History Testicular Surgery: No - Immunization History Immunization Up to Date: Yes - Psycho/Social/Smoking Cessation Hx Anxiety: Yes Suicidal Ideation: No Smoking History: Current every day smoker Have you smoked in the past 12 months: Yes Number of Cigarettes Smoked Daily: 20 Information on smoking cessation initiated: No 'Breaking Loose' booklet given: 10/01/16 Hx Alcohol Use: No Drug/Substance Use Hx: Yes (Marijuana) Substance Use Type: Marijuana Hx Substance Use Treatment: Yes ([facility] 12/24/14 to 12/28/14) Patient Lives Alone: No Trauma Specific PMHX - Complaint Specific PMHX Arthritis: No Review of Systems - Review of Systems Able to Perform ROS?: Yes Constitutional: No: Symptoms Reported Musculoskeletal: Yes: Back Pain, Joint Pain (left inguinal) Integumentary: No: Symptoms Reported 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: No: Symptoms reported *Physical Exam - Vital Signs Last Vital Signs Temp Pulse Resp BP Pulse Ox 97.9 F 92 H 20 149/85 99 12/14/16 20:56 12/14/16 20:56 12/14/16 20:56 12/14/16 20:56 12/14/16 20:56 - Physical Exam General Appearance: Yes: Nourished, Appropriately Dressed. No: Apparent Distress Gastrointestinal/Abdominal: positive: Soft. negative: Tenderness Musculoskeletal: negative: CVA Tenderness, Vertebral Tenderness (no midline tenderness. No paraspinous muscle tenderness) Extremity: positive: Normal Capillary Refill. negative: Pedal Edema Integumentary: positive: Normal Color, Warm, Moist Neurologic: positive: Motor Strength 5/5 (ambulatory. Leg Straight leg raise) Medical Decision Making - Medical Decision Making 12/14/16 22:03 Patient with acute on chronic low back and left inguinal pain. Patient states playing football defense 1 the pain began. Patient states takes Percocet daily but does not have prescription since he was recently incarcerated and released last week. Patient on exam had no reproducible pain, hernia, or weakness. Patient ordered for Toradol and will be discharged home with Motrin although he is requesting Percocet. *DC/Admit/Observation/Transfer Diagnosis at time of Disposition: Acute exacerbation of chronic low back pain Inguinal muscle strain Qualifiers: Encounter type: initial encounter Qualified Code(s): S39.013A - Strain of muscle, fascia and tendon of pelvis, initial encounter - Discharge Dispostion Disposition: HOME Condition at time of disposition: Good - Patient Instructions Printed Discharge Instructions: DI for Muscle Strain Additional Instructions: Can take Motrin for discomfort and apply ice to the affected area. Avoid movements that triggered discomfort. Consider follow-up with your primary care physician and/or orthopedist.
[2016-12-14] MEDS ORDERED: KETOROLAC TROMETHAMINE 60 MG/2 ML VIAL ONE (21:57)
== END 2016-12-14 22:21 | disposition home or self-care (01) ==
LOC: JERFT 20:39
PROC: 3E0233Z Introduction of Anti-inflammatory into Muscle, Percutaneous Approach (ICD-10-PCS; principal; 2016-12-14)
DX: S39.013A Strain of muscle, fascia and tendon of pelvis, initial encounter (principal); M54.5 Low back pain; G89.29 Other chronic pain; X58.XXXA Exposure to other specified factors, initial encounter; Y93.9 Activity, unspecified; Y92.9 Unspecified place or not applicable; J45.909 Unspecified asthma, uncomplicated; I10 Essential (primary) hypertension; F31.9 Bipolar disorder, unspecified; F25.9 Schizoaffective disorder, unspecified; F17.210 Nicotine dependence, cigarettes, uncomplicated
CPT/HCPCS: 99281-25

== ENCOUNTER 2017-01-04 19:02 | Inpatient (IN) | payer OTHER ==
[2017-01-04 19:33] VITALS: BMI 34.0
--- NOTE | 2017-01-04 19:42 | HP ---
CIWA Score - CIWA Score Nausea/Vomitin-Mild Nausea/No Vomiting Muscle Tremors: 3 Anxiety: 4-Mod. Anxious/Guarded Agitation: 4-Moderately Restless Paroxysmal Sweats: 1-Minimal Palms Moist Orientation: 1-Uncertain about Date Tacttile Disturbances: 0-None Auditory Disturbances: 0-None Visual Disturbances: 0-None Headache: 0-None Present CIWA-Ar Total Score: 14 Admission ROS [facility] - HPI Chief Complaint: WITHDRAWAL SX Allergies/Adverse Reactions: Allergies Allergy/AdvReac Type Severity Reaction Status Date / Time No Known Allergies Allergy Verified 01/04/17 19:39 History of Present Illness: 36 YEARS OLD MALE WITH LONG HISTORY OF ALCOHOL NICOTINE DEPENDENCE HAS HYPERTENSION AND ASTHMA AND SCHIZOPHRENIA IS ADMITTED TO DETOX PCP INTOXICATION TREATED AT [facility] "FEW HOURS" RELEASED TO [facility] FOR ALCOHOL DETOX Exam Limitations: No Limitations - Ebola screening Have you traveled outside of the country in the last 21 days: No Have you had contact with anyone from an Ebola affected area: No Have you been sick,other than usual withdrawal symptoms: No Do you have a fever: No - Review of Systems Constitutional: Changes in sleep, Weight Stable EENT: reports: No Symptoms Reported Respiratory: reports: No Symptoms reported Cardiac: reports: No Symptoms Reported GI: reports: Nausea, Poor Fluid Intake, Abdominal cramping : reports: No Symptoms Reported Musculoskeletal: reports: No Symptoms Reported Integumentary: reports: No Symptoms Reported Neuro: reports: Tremors Endocrine: reports: No Symptoms Reported Hematology: reports: No Symptoms Reported Psychiatric: reports: Judgement Intact, Anxious, Depressed Other Systems: Reviewed and Negative Patient History - Patient Medical History Hx Anemia: No Hx Asthma: Yes Hx Chronic Obstructive Pulmonary Disease (COPD): No Hx Cancer: No Hx Cardiac Disorders: No Hx Congestive Heart Failure: No Hx Hypertension: Yes (no med) Hx Hypercholesterolemia: No Hx Pacemaker: No HX Cerebrovascular Accident: No Hx Seizures: No Hx Dementia: No Hx Diabetes: No Hx Gastrointestinal Disorders: No Hx Liver Disease: No Hx Genitourinary Disorders: No Hx Sexually Transmitted Disorders: No Hx Renal Disease (ESRD): No Hx Thyroid Disease: No Hx Human Immunodeficiency Virus (HIV): No Hx Hepatitis C: No Hx Depression: No Hx Suicide Attempt: No Hx Bipolar Disorder: No Hx Schizophrenia: Yes - Patient Surgical History Past Surgical History: No Hx Neurologic Surgery: No Hx Cataract Extraction: No Hx Cardiac Surgery: No Hx Lung Surgery: No Hx Breast Surgery: No Hx Breast Biopsy: No Hx Abdominal Surgery: No Hx Appendectomy: No Hx Cholecystectomy: No Hx Genitourinary Surgery: No Hx Orthopedic Surgery: No - PPD History Previous Implant?: Yes Documented Results: Negative w/proof Implanted On Prior [facility] Admission?: Yes Date: 10/03/16 Results: 0 mm PPD to be Administered?: No - Smoking Cessation Smoking history: Current every day smoker Have you smoked in the past 12 months: Yes Aproximately how many cigarettes per day: 10 Cigars Per Day: 0 Hx Chewing Tobacco Use: No Initiated information on smoking cessation: Yes 'Breaking Loose' booklet given: 01/04/17 - Substance & Tx. History Hx Alcohol Use: Yes Hx Substance Use: Yes Substance Use Type: Alcohol Hx Substance Use Treatment: Yes (10/01-10/04/16 [facility] - Substances Abused Alcohol Route: Oral Frequency: Daily Amount used: [id number] Age of first use: 18 Date of Last Use: 01/04/17 PCP Route: Smoking Frequency: Daily Amount used: 10$ Age of first use: 19 Date of Last Use: 01/04/17 Family Disease History - Family Disease History Family Disease History: Diabetes: Father, Mother Admission Physical Exam S - Vital Signs Vital Signs: Vital Signs - 24 hr 01/04/17 19:30 Temperature 99.1 F Pulse Rate 110 H Respiratory 18 Rate Blood Pressure 150/96 - Physical General Appearance: Yes: Appropriately Dressed, Mild Distress, Obese, Tremorous , Irritable, Sweating, Anxious HEENTM: Yes: Hearing grossly Normal, Normal ENT Inspection, Normocephalic, Normal Voice Respiratory: Yes: Chest Non-Tender, Lungs Clear, Normal Breath Sounds, No Respiratory Distress, No Accessory Muscle Use Neck: Yes: Supple, Trachea in good position Breast: Yes: Breasts Symetrical Cardiology: Yes: Regular Rhythm, S1, S2, Tachycardia Abdominal: Yes: Normal Bowel Sounds, Non Tender, Soft Genitourinary: Yes: Within Normal Limits Back: Yes: Normal Inspection Musculoskeletal: Yes: full range of Motion, Gait Steady Extremities: Yes: Normal Range of Motion, Non-Tender, Tremors 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: Yes: Alert, Motor Strength 5/5, Normal Response, Depressed Affect Integumentary: Yes: Warm Lymphatic: Yes: Within Normal Limits - Diagnostic (1) HTN (hypertension) Current Visit: Yes Status: Chronic Qualifiers: Hypertension type: essential hypertension Qualified Code(s): I10 - Essential (primary) hypertension (2) Nicotine dependence Current Visit: Yes Status: Acute Qualifiers: Nicotine product type: cigarettes Substance use status: in withdrawal Qualified Code(s): F17.213 - Nicotine dependence, cigarettes, with withdrawal (3) Schizoaffective disorder Current Visit: Yes Status: Suspected Qualifiers: Schizoaffective disorder type: bipolar Qualified Code(s): F25.0 - Schizoaffective disorder, bipolar type Comment: Self-report. (4) Asthma Current Visit: Yes Status: Chronic Qualifiers: Asthma severity: mild intermittent Asthma complication type: with status asthmaticus Qualified Code(s): J45.22 - Mild intermittent asthma with status asthmaticus (5) Alcohol dependence with uncomplicated withdrawal Current Visit: Yes Status: Acute Cleared for Admission [facility] - Detox or Rehab S Level of Care: Medically Managed Detox Regimen/Protocol: Librium S Breath Alcohol Content Breath Alcohol Content: 0 Urine Drug Screen - Results Drug Screen Negative: No Urine Drug Screen Results: PCP-Phencyclidine, BZO-Benzodiazepines
[2017-01-04] MEDS ORDERED: MAGNESIUM HYDROX 2400MG/30ML ORAL SUSPENSION 30 ML CUP PO PRN (19:49)
[2017-01-04] MEDS ORDERED: guaiFENesin/D-METHORPHAN HB 10 ML UNIT-DOSE CUPS PO PRN (19:49)
[2017-01-04] MEDS ORDERED: MAGNESIUM CITRATE 300 ML BOTTLE PO PRN (19:49)
[2017-01-04] MEDS ORDERED: MAG HYDROX/AL HYDROX/SIMETH 30 ML UNIT-DOSE CUP PO PRN (19:49)
[2017-01-04] MEDS ORDERED: MENTHOL/PHENOL 1 EACH UD MM PRN (19:49)
[2017-01-04] MEDS ORDERED: chlordiazePOXIDE HCL 25 MG CAPSULE PO PRN (19:49)
[2017-01-04] MEDS ORDERED: LOPERAMIDE HCL 2 MG CAPSULE PO PRN (19:49)
[2017-01-04] MEDS ORDERED: P-EPHED 60MG/TRIPROLIDI 2.5MG TABLET PO PRN (19:49)
[2017-01-04] MEDS ORDERED: chlordiazePOXIDE HCL 25 MG CAPSULE PO ONE (19:49)
[2017-01-04] MEDS ORDERED: ALBUTEROL SO4 6.7 GM HFA INHALER IH PRN (19:51)
[2017-01-04] MEDS: ACETAMINOPHEN 325 MG TABLET (FP) PO PRN (20:16)
[2017-01-04 21:22] LABS: URINE APPEARANCE CLEAR; URINE BILIRUBIN NEGATIVE (NEGATIVE); URINE BLOOD NEGATIVE (NEGATIVE); URINE COLOR YELLOW; URINE GLUCOSE (UA) NEGATIVE (NEGATIVE); URINE KETONE NEGATIVE (NEGATIVE); URINE LEUK ESTERASE NEGATIVE (NEGATIVE); URINE NITRITE NEGATIVE (NEGATIVE); URINE PROTEIN NEGATIVE (NEGATIVE); URINE UROBILINOGEN NEGATIVE mg/dL (0.2-1.0)
[2017-01-04] MEDS: chlordiazePOXIDE HCL 25 MG CAPSULE PO SCH (22:23)
[2017-01-04] MEDS: IBUPROFEN 400 MG TABLET (FP) PO PRN (22:24)
[2017-01-04] MEDS: diphenhydrAMINE HCL 50 MG CAPSULE PO PRN (22:25)
[2017-01-04] MEDS: THIAMINE HCL 100 MG TABLET (FP) PO SCH (22:25)
[2017-01-05] MEDS: diphenhydrAMINE HCL 50 MG CAPSULE PO PRN ×2 (01:00→22:20)
[2017-01-05] MEDS: ACETAMINOPHEN 325 MG TABLET (FP) PO PRN ×2 (01:01→22:20)
[2017-01-05] MEDS: hydrOXYzine PAMOATE 50 MG CAPSULE (FP) PO PRN (02:09)
[2017-01-05] MEDS: IBUPROFEN 400 MG TABLET (FP) PO PRN ×4 (03:45→23:27)
[2017-01-05] MEDS: chlordiazePOXIDE HCL 25 MG CAPSULE PO SCH ×4 (05:08→22:20)
[2017-01-05 09:38] LABS: MCH 29.7 pg (25.7-33.7); MCHC 33.8 g/dl (32.0-35.9); MEAN CELL VOLUME 87.9 fl (80-96); MEAN PLT VOLUME 8.8 fl (7.5-11.1); PLATELET COUNT 243 K/MM3 (134-434); RDW 14.2 % (11.9-15.9); WHITE BLOOD COUNT 10.3 K/mm3 (4.0-10.0)
[2017-01-05 10:03] LABS: ALBUMIN 3.9 g/dl (3.4-5.0); ALK PHOS 86 U/L (45-117); ANION GAP 7 (8-16); BILIRUBIN,TOTAL 0.5 mg/dL (0.2-1.0); CALCIUM 9.1 mg/dL (8.5-10.1); CO2 31 mmol/L (21-32); CREATININE 1.1 mg/dL (0.7-1.3); GLUCOSE,RANDOM 92 mg/dL (74-106); SGOT/AST 18 U/L (15-37); SGPT/ALT 28 U/L (12-78); TOT PROT 6.8 g/dl (6.4-8.2)
[2017-01-05] MEDS: HYDROCHLOROTHIAZIDE 25 MG TABLET (FP) PO SCH (10:15)
[2017-01-05] MEDS: PRENATAL VITAMINS W/ FOLIC ACID TABLET (FP) PO SCH (10:15)
[2017-01-05] MEDS: NICOTINE 14 MG/24 HOURS TOPICAL PATCH TD SCH (10:16)
--- NOTE | 2017-01-05 10:48 | PN ---
S CIWA - CIWA Score Nausea/Vomitin-No Nausea/No Vomiting Muscle Tremors: 4-Moderate,w/Arms Extend Anxiety: 4-Mod. Anxious/Guarded Agitation: 4-Moderately Restless Paroxysmal Sweats: 3 Orientation: 0-Oriented Tacttile Disturbances: 0-None Auditory Disturbances: 0-None Visual Disturbances: 0-None Headache: 0-None Present CIWA-Ar Total Score: 15 [facility] Progress Note (SOAP) Subjective: sweats shakes interrupted sleep body aches Objective: 01/05/17 10:47 Vital Signs Temperature 98.1 F 01/05/17 10:33 Pulse Rate 88 01/05/17 10:33 Respiratory Rate 18 01/05/17 10:33 Blood Pressure 142/70 01/05/17 10:33 O2 Sat by Pulse Oximetry (%) Laboratory Tests 01/04/17 01/05/17 01/05/17 19:41 08:00 08:00 WBC 10.3 H RBC 4.56 Hgb 13.6 Hct 40.1 MCV 87.9 MCH 29.7 MCHC 33.8 RDW 14.2 Plt Count 243 D MPV 8.8 Sodium 138 Potassium 4.0 Chloride 100 Carbon Dioxide 31 Anion Gap 7 L BUN 16 D Creatinine 1.1 Creat Clearance w eGFR > 60 Random Glucose 92 Calcium 9.1 Total Bilirubin 0.5 D AST 18 D ALT 28 D Alkaline Phosphatase 86 Total Protein 6.8 Albumin 3.9 Urine Color Yellow Urine Appearance Clear Urine pH 5.0 Ur Specific [place] 1.020 Urine Protein Negative Urine Glucose (UA) Negative Urine Ketones Negative Urine Blood Negative Urine Nitrite Negative Urine Bilirubin Negative Urine Urobilinogen Negative Ur Leukocyte Esterase Negative labs pending awake/alert no acute distress Assessment: 01/05/17 10:48 withdrawal sx Plan: continue detox increase fluids labs pending
--- NOTE | 2017-01-05 12:55 | EKG ---
Test Reason : Blood Pressure : / mmHG Vent. Rate : 100 BPM Atrial Rate : 100 BPM P-R Int : 160 ms QRS Dur : 078 ms QT Int : 340 ms P-R-T Axes : 059 051 062 degrees QTc Int : 438 ms NORMAL SINUS RHYTHM NONSPECIFIC T WAVE ABNORMALITY ABNORMAL ECG Confirmed by MD TAWANDA, THIAGO ([id number]) on 01/05/2017 12:55:31 PM Referred By: Confirmed By:THIAGO NEFF MD
--- NOTE | 2017-01-05 16:20 | CONSULT ---
[facility] Psychiatric Consult - Data Date of interview: 01/05/17 Admission source: [facility] Identifying data: Another admission to [facility] for this 36 y/o AA male seeking detox treatment,on ,for alcohol and phencyclidine dependence.Patient is single ( in interview of 10/02/16),a father of one ( claimed two children in interview of 10/02/16),currently homeless,unemployed and supported on SSI benefits. Substance Abuse History: Discussed with the patient in this interview.Mr Anali Cox confirms this report. Smoking Cessation. Smoking history: Current every day smoker. Have you smoked in the past 12 months: Yes. Aproximately how many cigarettes per day: 10. Cigars Per Day: 0. Hx Chewing Tobacco Use: No. Initiated information on smoking cessation: Yes. 'Breaking Loose' booklet given: 01/04/17. - Substance & Tx. History. Hx Alcohol Use: Yes. Hx Substance Use: Yes. Substance Use Type: Alcohol. Hx Substance Use Treatment: Yes (10/01-10/04/16 [facility]). - Substances Abused. Alcohol. Route: Oral. Frequency: Daily. Amount used: [id number]. Age of first use: 18. Date of Last Use: 01/04/17. PCP. Route: Smoking. Frequency: Daily. Amount used: 10$. Age of first use: 19. Date of Last Use: 01/04/17 Medical History: Consistent with hypertension,lower back pain and bronchial asthma. Psychiatric History: Patient reports a history of two psychiatric hospitalizations in his lifetime ([facility] in [facility] and [facility] in [facility]).Diagnosed with Schizophrenia.Mr Anali Cox indicates current psychiatric OPD care at the [facility] mental health clinic in [facility] [place].He states that he is maintained on a regimen of Invega 234 mg IM monthly (last injection was dispensed two days ago according to self-report) .Patient denies history of suicide attempts. Physical/Sexual Abuse/Trauma History: Patient denies. Additional Comment: Urine Drug Screen Results: PCP-Phencyclidine, BZO- Benzodiazepines.Noted. Mental Status Exam - Mental Status Exam Alert and Oriented to: Time, Place, Person Cognitive Function: Good Patient Appearance: Well Groomed Mood: Withdrawn, Hopeful Affect: Normal Range Patient Behavior: Appropriate, Cooperative Speech Pattern: Clear Voice Loudness: Normal Thought Process: Goal Oriented Thought Disorder: Not Present Hallucinations: Denies Suicidal Ideation: Denies Homicidal Ideation: Denies Insight/Judgement: Poor Sleep: Poorly (requests benadryl at bedtime), Difficulty falling asleep Appetite: Good Muscle strength/Tone: Normal Gait/Station: Normal Psychiatric Findings - Problem List (Clever 1, 2,3) (1) Alcohol dependence with uncomplicated withdrawal Current Visit: Yes Status: Acute (2) PCP dependence Current Visit: Yes Status: Acute (3) Nicotine dependence Current Visit: Yes Status: Acute Qualifiers: Nicotine product type: cigarettes Substance use status: uncomplicated Qualified Code(s): F17.210 - Nicotine dependence, cigarettes, uncomplicated (4) Schizophrenia Current Visit: Yes Status: Chronic (5) Asthma Current Visit: Yes Status: Chronic Qualifiers: Asthma severity: mild intermittent Asthma complication type: with status asthmaticus Qualified Code(s): J45.22 - Mild intermittent asthma with status asthmaticus (6) HTN (hypertension) Current Visit: Yes Status: Chronic Qualifiers: Hypertension type: essential hypertension Qualified Code(s): I10 - Essential (primary) hypertension (7) Insomnia Current Visit: Yes Status: Acute - Initial Treatment Plan Initial Treatment Plan: Psychoeducation is provided in this session.Detoxification is under way.Pharmacy claims revisited : noted script for Invega 234 mg/1.5 ml issued on 09/29/16 at [facility] [id number].Patient insists that he got his most recent injection two days ago at [facility]OPD clinic.Observation.
[2017-01-05] MEDS: NICOTINE POLACRILEX 2 MG GUM BUC PRN (18:05)
[2017-01-05] MEDS: THIAMINE HCL 100 MG TABLET (FP) PO SCH (22:20)
[2017-01-06] MEDS: diphenhydrAMINE HCL 50 MG CAPSULE PO PRN ×2 (01:12→22:06)
[2017-01-06] MEDS: ACETAMINOPHEN 325 MG TABLET (FP) PO PRN (04:37)
[2017-01-06] MEDS: chlordiazePOXIDE HCL 25 MG CAPSULE PO SCH ×3 (05:39→17:21)
[2017-01-06] MEDS: PRENATAL VITAMINS W/ FOLIC ACID TABLET (FP) PO SCH (10:13)
[2017-01-06] MEDS: HYDROCHLOROTHIAZIDE 25 MG TABLET (FP) PO SCH (10:13)
[2017-01-06] MEDS: NICOTINE 14 MG/24 HOURS TOPICAL PATCH TD SCH (10:14)
[2017-01-06] MEDS: NICOTINE POLACRILEX 2 MG GUM BUC PRN ×4 (14:59→20:36)
--- NOTE | 2017-01-06 14:59 | PN ---
[facility] CIWA - CIWA Score Nausea/Vomitin Muscle Tremors: 3 Anxiety: 3 Agitation: 2 Paroxysmal Sweats: 1-Minimal Palms Moist Orientation: 0-Oriented Tacttile Disturbances: 1-Very Mild Itch/Numbness Auditory Disturbances: 1-Very Mild Visual Disturbances: 1-Very Mild Sensitivity Headache: 2-Mild CIWA-Ar Total Score: 17 S Progress Note (SOAP) Subjective: ALERT,IRRITABLE,ANXIOUS,INTERRUPTED SLEEP,TREMOR Objective: 01/06/17 14:56 Vital Signs Temperature 98.2 F 01/06/17 14:33 Pulse Rate 107 H 01/06/17 14:33 Respiratory Rate 20 01/06/17 14:33 Blood Pressure 149/89 01/06/17 14:33 O2 Sat by Pulse Oximetry (%) EKG NSR NO CHEST PAIN,NO SOB,NO DIZZINESS Laboratory Last Values WBC 10.3 K/mm3 (4.0-10.0) H 01/05/17 08:00 RBC 4.56 M/mm3 (4.00-5.60) 01/05/17 08:00 Hgb 13.6 GM/dL (11.7-16.9) 01/05/17 08:00 Hct 40.1 % (35.4-49) 01/05/17 08:00 MCV 87.9 fl (80-96) 01/05/17 08:00 MCH 29.7 pg (25.7-33.7) 01/05/17 08:00 MCHC 33.8 g/dl (32.0-35.9) 01/05/17 08:00 RDW 14.2 % (11.9-15.9) 01/05/17 08:00 Plt Count 243 K/MM3 (134-434) D 01/05/17 08:00 MPV 8.8 fl (7.5-11.1) 01/05/17 08:00 Sodium 138 mmol/L (136-145) 01/05/17 08:00 Potassium 4.0 mmol/L (3.5-5.1) 01/05/17 08:00 Chloride 100 mmol/L (98-107) 01/05/17 08:00 Carbon Dioxide 31 mmol/L (21-32) 01/05/17 08:00 Anion Gap 7 (8-16) L 01/05/17 08:00 BUN 16 mg/dL (7-18) D 01/05/17 08:00 Creatinine 1.1 mg/dL (0.7-1.3) 01/05/17 08:00 Creat Clearance w eGFR > 60 (>60) 01/05/17 08:00 Random Glucose 92 mg/dL (74-106) 01/05/17 08:00 Calcium 9.1 mg/dL (8.5-10.1) 01/05/17 08:00 Total Bilirubin 0.5 mg/dL (0.2-1.0) D 01/05/17 08:00 AST 18 U/L (15-37) D 01/05/17 08:00 ALT 28 U/L (12-78) D 01/05/17 08:00 Alkaline Phosphatase 86 U/L (45-117) 01/05/17 08:00 Total Protein 6.8 g/dl (6.4-8.2) 01/05/17 08:00 Albumin 3.9 g/dl (3.4-5.0) 01/05/17 08:00 Urine Color Yellow 01/04/17 19:41 Urine Appearance Clear 01/04/17 19:41 Urine pH 5.0 (5.0-8.0) 01/04/17 19:41 Ur Specific [place] 1.020 (1.005-1.025) 01/04/17 19:41 Urine Protein Negative (NEGATIVE) 01/04/17 19:41 Urine Glucose (UA) Negative (NEGATIVE) 01/04/17 19:41 Urine Ketones Negative (NEGATIVE) 01/04/17 19:41 Urine Blood Negative (NEGATIVE) 01/04/17 19:41 Urine Nitrite Negative (NEGATIVE) 01/04/17 19:41 Urine Bilirubin Negative (NEGATIVE) 01/04/17 19:41 Urine Urobilinogen Negative mg/dL (0.2-1.0) 01/04/17 19:41 Ur Leukocyte Esterase Negative (NEGATIVE) 01/04/17 19:41 RPR Titer Nonreactive (NONREACTIVE) 01/05/17 08:00 Hepatitis C Antibody <0.1 s/co ratio (0.0-0.9) 01/05/17 08:00 Assessment: 01/06/17 14:57 WITHDRAWAL SYMPTOM Plan: CONTINUE DETOX,ENCOURAGE ORAL FLUID
[2017-01-06] MEDS: IBUPROFEN 400 MG TABLET (FP) PO PRN (17:20)
[2017-01-06] MEDS: THIAMINE HCL 100 MG TABLET (FP) PO SCH (22:06)
[2017-01-06] MEDS: chlordiazePOXIDE 5 MG CAPSULE PO SCH (22:07)
[2017-01-07] MEDS: chlordiazePOXIDE 5 MG CAPSULE PO SCH ×3 (05:06→17:16)
[2017-01-07] MEDS: IBUPROFEN 400 MG TABLET (FP) PO PRN ×2 (05:08→22:03)
[2017-01-07] MEDS: NICOTINE 14 MG/24 HOURS TOPICAL PATCH TD SCH (10:23)
[2017-01-07] MEDS: PRENATAL VITAMINS W/ FOLIC ACID TABLET (FP) PO SCH (10:23)
[2017-01-07] MEDS: HYDROCHLOROTHIAZIDE 25 MG TABLET (FP) PO SCH (10:23)
--- NOTE | 2017-01-07 12:44 | PN ---
S Progress Note (SOAP) Subjective: ALERT,IRRITABLE,ANXIOUS,INTERRUPTED SLEEP Objective: 01/07/17 12:43 Vital Signs Temp 97.5 F L 01/07/17 10:00 Pulse 77 01/07/17 10:00 Resp 18 01/07/17 10:00 BP 118/78 01/07/17 10:00 Pulse Ox Intake & Output 01/06/17 01/07/17 01/07/17 23:59 11:59 23:59 Other: Voiding Method Toilet Assessment: 01/07/17 12:43 WITHDRAWAL SYMPTOM Plan: CONTINUE DETOX,DISCHARGE IN AM
[2017-01-07] MEDS: NICOTINE POLACRILEX 2 MG GUM BUC PRN ×3 (15:25→21:37)
[2017-01-07] MEDS: hydrOXYzine PAMOATE 50 MG CAPSULE (FP) PO PRN (19:15)
[2017-01-07] MEDS: diphenhydrAMINE HCL 50 MG CAPSULE PO PRN (22:02)
[2017-01-07] MEDS: THIAMINE HCL 100 MG TABLET (FP) PO SCH (22:02)
[2017-01-07] MEDS: chlordiazePOXIDE HCL 10 MG CAPSULE PO SCH (22:02)
[2017-01-08] MEDS: chlordiazePOXIDE HCL 10 MG CAPSULE PO SCH ×2 (05:33→10:12)
[2017-01-08] MEDS: NICOTINE POLACRILEX 2 MG GUM BUC PRN ×2 (08:24→12:14)
--- NOTE | 2017-01-08 08:28 | DS ---
[facility] Detox Discharge Summary Admission Date: 01/04/17 Discharge Date: 01/08/17 - History Present History: Alcohol Dependence, Cannabis Dependence, Cocaine Dependence, Pcp Dependence, MMTP - Physical Exam Results Vital Signs: Vital Signs Temperature 97.3 F L 01/08/17 06:29 Pulse Rate 72 01/08/17 06:29 Respiratory Rate 18 01/08/17 06:29 Blood Pressure 111/66 01/08/17 06:29 O2 Sat by Pulse Oximetry (%) - Treatment Hospital Course: Detox Protocol Followed, Detoxed Safely, Responded well, Discharged Condition Good, Rehab Referral Accepted - Medication Discharge Medications: Ambulatory Orders Albuterol Sulfate Inhaler - [Ventolin Hfa Inhaler -] 1 - 2 inh PO Q4H 09/30/16 Bupropion HCl [Wellbutrin -] 150 mg PO DAILY 09/30/16 Alprazolam [Xanax] 2 mg PO BID 12/14/16 Haloperidol [Haldol -] 2 mg PO BID 12/14/16 Ibuprofen [Motrin -] 800 mg PO TID PRN #21 tablet 12/14/16 Oxycodone HCl/Acetaminophen [Percocet 5-325 mg Tablet] 1 tab PO Q4H 12/14/16 - Diagnosis (1) Alcohol dependence with uncomplicated withdrawal Current Visit: Yes Status: Chronic (2) Nicotine dependence Current Visit: Yes Status: Chronic Qualifiers: Nicotine product type: cigarettes Substance use status: uncomplicated Qualified Code(s): F17.210 - Nicotine dependence, cigarettes, uncomplicated (3) Asthma Current Visit: Yes Status: Chronic Qualifiers: Asthma severity: mild intermittent Asthma complication type: with status asthmaticus Qualified Code(s): J45.22 - Mild intermittent asthma with status asthmaticus (4) HTN (hypertension) Current Visit: Yes Status: Chronic Qualifiers: Hypertension type: essential hypertension Qualified Code(s): I10 - Essential (primary) hypertension (5) Schizoaffective disorder Current Visit: Yes Status: Suspected Qualifiers: Schizoaffective disorder type: bipolar Qualified Code(s): F25.0 - Schizoaffective disorder, bipolar type (6) Acute exacerbation of chronic low back pain Current Visit: No Status: Acute (7) Cannabis dependence Current Visit: No Status: Acute (8) Inguinal muscle strain Current Visit: No Status: Acute Qualifiers: Encounter type: initial encounter Qualified Code(s): S39.013A - Strain of muscle, fascia and tendon of pelvis, initial encounter (9) Irritation of ear Current Visit: No Status: Resolved (10) Methadone maintenance therapy patient Current Visit: Yes Status: Chronic (11) Opioid dependence on agonist therapy Current Visit: Yes Status: Chronic (12) PCP abuse Current Visit: Yes Status: Chronic (13) Poly-drug misuser Current Visit: No Status: Acute (14) Substance abuse Current Visit: No Status: Acute (15) Substance induced mood disorder Current Visit: No Status: Acute (16) Anxiety Current Visit: No Status: Chronic (17) Back pain Current Visit: No Status: Chronic Qualifiers: Back pain location: low back pain Chronicity: acute Back pain laterality: left Sciatica presence: without sciatica Qualified Code(s ): M54.5 - Low back pain (18) Cocaine dependence Current Visit: Yes Status: Chronic Qualifiers: Substance use status: uncomplicated Qualified Code(s): F14.20 - Cocaine dependence, uncomplicated - AMA Did Patient Leave Against Medical Advice: No ([facility] rehab)
[2017-01-08] MEDS: IBUPROFEN 400 MG TABLET (FP) PO PRN (10:11)
[2017-01-08] MEDS: HYDROCHLOROTHIAZIDE 25 MG TABLET (FP) PO SCH (10:12)
[2017-01-08] MEDS: PRENATAL VITAMINS W/ FOLIC ACID TABLET (FP) PO SCH (10:12)
[2017-01-08] MEDS: NICOTINE 14 MG/24 HOURS TOPICAL PATCH TD SCH (10:16)
[2017-01-08 14:18] VITALS: BP 118/69; PULSE 87; TEMP 97.9
== END 2017-01-08 12:45 | disposition other institution (70) | DRG 773 ==
LOC: YASAS 19:02 → Y6N 19:48
PROVIDERS: ADMIT Internal Medicine; ATTEND Internal Medicine
PROC: HZ2ZZZZ Detoxification Services for Substance Abuse Treatment (ICD-10-PCS; principal; 2017-01-04)
DX: F10.230 Alcohol dependence with withdrawal, uncomplicated (principal); F11.20 Opioid dependence, uncomplicated; F16.20 Hallucinogen dependence, uncomplicated; F17.210 Nicotine dependence, cigarettes, uncomplicated; F19.24 Other psychoactive substance dependence with psychoactive substance-induced mood disorder; F41.9 Anxiety disorder, unspecified; F25.0 Schizoaffective disorder, bipolar type; I10 Essential (primary) hypertension; J45.22 Mild intermittent asthma with status asthmaticus; M54.5 Low back pain; G89.29 Other chronic pain; H93.8X9 Other specified disorders of ear, unspecified ear; E66.9 Obesity, unspecified; Z68.34 Body mass index [BMI] 34.0-34.9, adult
CPT/HCPCS: 36415; 80053; 81003; 85027; 86593; 86803; 93005; 93010

== ENCOUNTER 2017-01-08 13:11 | Inpatient (IN) | payer OTHER ==
[2017-01-08] MEDS ORDERED: LOPERAMIDE HCL 2 MG CAPSULE PO PRN ×2 (13:27→16:15)
[2017-01-08] MEDS ORDERED: diphenhydrAMINE HCL 50 MG CAPSULE PO PRN ×2 (13:27→16:15)
[2017-01-08] MEDS ORDERED: MAGNESIUM CITRATE 300 ML BOTTLE PO PRN ×2 (13:27→16:15)
[2017-01-08] MEDS ORDERED: IBUPROFEN 400 MG TABLET (FP) PO PRN ×2 (13:27→16:15)
[2017-01-08] MEDS ORDERED: MAGNESIUM HYDROX 2400MG/30ML ORAL SUSPENSION 30 ML CUP PO PRN ×2 (13:27→16:15)
[2017-01-08] MEDS ORDERED: guaiFENesin/D-METHORPHAN HB 10 ML UNIT-DOSE CUPS PO PRN ×2 (13:27→16:15)
[2017-01-08] MEDS ORDERED: hydrOXYzine PAMOATE 50 MG CAPSULE (FP) PO PRN (13:27)
[2017-01-08] MEDS ORDERED: NICOTINE POLACRILEX 2 MG GUM BUC PRN ×2 (13:27→16:15)
[2017-01-08] MEDS ORDERED: ACETAMINOPHEN 325 MG TABLET (FP) PO PRN ×2 (13:27→16:15)
[2017-01-08] MEDS ORDERED: MAG HYDROX/AL HYDROX/SIMETH 30 ML UNIT-DOSE CUP PO PRN ×2 (13:27→16:15)
[2017-01-08] MEDS ORDERED: P-EPHED 60MG/TRIPROLIDI 2.5MG TABLET PO PRN ×2 (13:27→16:15)
[2017-01-08] MEDS ORDERED: MENTHOL/PHENOL 1 EACH UD MM PRN ×2 (13:27→16:15)
[2017-01-08 13:45] VITALS: BP 146/62; PULSE 89; TEMP 98.5
--- NOTE | 2017-01-08 15:42 | PN ---
[facility] Progress Note Note: patient left AMA prior to be seen by a psychiatrist
--- NOTE | 2017-01-08 16:14 | HP ---
[facility] Rehab Assess/Revision - Admission History Admitted to Rehab from: [facility] Date of Admission to Rehab: 01/08/17 - Vital signs Vital Signs: Vital Signs Period Temp Pulse Resp BP Sys/Pitt Pulse Ox Last 24 Hr 98.5 F 89 18 146/62 - Findings Detox History & Physical reviewed: Yes Concur with findings: Yes Comments/Additional Findings: transferred from detox to rehab admission as per protocol
[2017-01-08] MEDS ORDERED: ALBUTEROL SO4 6.7 GM HFA INHALER IH PRN (16:15)
[2017-01-08] MEDS ORDERED: NICOTINE 14 MG/24 HOURS TOPICAL PATCH TD PRN (16:15)
[2017-01-08] MEDS ORDERED: THIAMINE HCL 100 MG TABLET (FP) PO SCH ×2 (22:00)
[2017-01-09] MEDS ORDERED: NICOTINE 21 MG/24 HOURS TOPICAL PATCH TD SCH (10:00)
[2017-01-09] MEDS ORDERED: PRENATAL VITAMINS W/ FOLIC ACID TABLET (FP) PO SCH ×2 (10:00)
== END 2017-01-08 15:10 | disposition left against medical advice (07) | DRG 770 ==
LOC: YASAS 13:11 → Y5N 13:12
PROVIDERS: ADMIT Psychiatry & Neurology Psychiatry; ATTEND Psychiatry & Neurology Psychiatry
PROC: HZ42ZZZ Group Counseling for Substance Abuse Treatment, Cognitive-Behavioral (ICD-10-PCS; principal; 2017-01-08)
DX: F10.20 Alcohol dependence, uncomplicated (principal); F16.20 Hallucinogen dependence, uncomplicated; F17.210 Nicotine dependence, cigarettes, uncomplicated; F25.0 Schizoaffective disorder, bipolar type; I10 Essential (primary) hypertension; J45.22 Mild intermittent asthma with status asthmaticus; E66.9 Obesity, unspecified; Z68.34 Body mass index [BMI] 34.0-34.9, adult

== ENCOUNTER 2017-01-16 21:58 | Emergency (ER) | payer OTHER ==
[2017-01-16 22:18] VITALS: BP 147/81; PULSE 94; TEMP 99; BMI 35.3
[2017-01-16] MEDS ORDERED: KETOROLAC TROMETHAMINE 60 MG/2 ML VIAL IM ONE (22:29)
[2017-01-16] MEDS ORDERED: KETOROLAC TROMETHAMINE 60 MG/2 ML VIAL ONE (22:31)
--- NOTE | 2017-01-16 22:34 | PDOC ---
History of Present Illness - General Chief Complaint: Injury Stated Complaint: FALL Time Seen by Provider: 01/16/17 22:28 History Source: Patient Exam Limitations: No Limitations - History of Present Illness Initial Comments: 01/16/17 22:30 Ration of acute onset of back pain. was playing basketball and came down and twisted back. Is requesting Percocet for pain relief, and is using Xanax and BuSpar for his anxiety disorders. Patient has appointment with [place] tomorrow morning for his psychiatric medications. Patient denies numbness or tingling to hands or feet, no significant injury. Occurred: reports: just prior to arrival Severity: reports: mild Pain Location: reports: back Loss of Consciousness: no loss of consciousness Associated Symptoms (Fall): denies symptoms Past History - Travel Traveled outside of the country in the last 30 days: No Close contact w/someone who was outside of country & ill: No - Past Medical History Allergies/Adverse Reactions: Allergies Allergy/AdvReac Type Severity Reaction Status Date / Time Pork/Porcine Containing Allergy Severe Rash Verified 01/08/17 13:40 Products No Known Drug Allergies Allergy Verified 01/08/17 15:24 Home Medications: Ambulatory Orders Albuterol Sulfate Inhaler - [Ventolin Hfa Inhaler -] 1 - 2 inh PO Q4H 09/30/16 Bupropion HCl [Wellbutrin -] 150 mg PO DAILY 09/30/16 Haloperidol [Haldol -] 2 mg PO BID 12/14/16 Ibuprofen [Motrin -] 800 mg PO TID PRN #21 tablet 12/14/16 Ibuprofen 600 mg PO Q6H PRN #30 tablet 01/16/17 Anemia: No Asthma: Yes (on albuterol inhaler) Cancer: No Cardiac Disorders: No CVA: No COPD: No CHF: No Dementia: No Diabetes: No GI Disorders: No Disorders: No HTN: Yes (no med) Hypercholesterolemia: No Kidney Stones: No Liver Disease: No Psychiatric Problems: Yes (BIPOLAR; MIGRAINE;SCHIZOAFFECTIVEDISORDER) Suicide Attempt (Hx): No Seizures: No Thyroid Disease: No - Surgical History Abdominal Surgery: No Appendectomy: Yes (2005) Cardiac Surgery: No Cholecystectomy: No Gastric Stapling: No GI Surgery: No Lung Surgery: No Neurologic Surgery: No Orthopedic Surgery: No - Reproductive History Testicular Surgery: No - Immunization History Immunization Up to Date: Yes - Psycho/Social/Smoking Cessation Hx Anxiety: No Suicidal Ideation: No Smoking History: Never smoked Have you smoked in the past 12 months: No Number of Cigarettes Smoked Daily: 10 Cigars Per Day: 0 Information on smoking cessation initiated: No 'Breaking Loose' booklet given: 01/04/17 Hx Alcohol Use: No Drug/Substance Use Hx: No Substance Use Type: Alcohol Hx Substance Use Treatment: Yes (10/01-10/04/16 [facility] Trauma Specific PMHX - Complaint Specific PMHX Arthritis: No Back Injury: Yes Review of Systems - Review of Systems Able to Perform ROS?: Yes Is the patient limited Swedish proficient: Yes Constitutional: Yes: See HPI. No: Symptoms Reported, Fever, Malaise HEENTM: No: Symptoms Reported Musculoskeletal: Yes: Symptoms Reported, See HPI, Back Pain, Muscle Pain Integumentary: No: Symptoms Reported All Other Systems: Reviewed and Negative *Physical Exam - Vital Signs Last Vital Signs Temp Pulse Resp BP Pulse Ox 99 F 94 H 18 147/81 97 01/16/17 22:13 01/16/17 22:13 01/16/17 22:13 01/16/17 22:13 01/16/17 22:13 - Physical Exam General Appearance: Yes: Nourished, Appropriately Dressed. No: Apparent Distress HEENT: positive: RAMON, Normal ENT Inspection, TMs Normal, Pharynx Normal Neck: positive: Supple. negative: Tender Musculoskeletal: positive: Normal Inspection. negative: CVA Tenderness, Decreased Range of Motion, Muscle Spasm, Vertebral Tenderness (no C-spine tenderness, no palpable spasm, has full range of motion and able to flex and extend at waist. 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 Patient understands medications and chronic psychiatric medications will be prescribed and morning at his psychiatric appointment. Given shot of Toradol for anti- inflammatory purposes patient understands will follow up for further medications including narcotics with private physician. *DC/Admit/Observation/Transfer Diagnosis at time of Disposition: Back strain Qualifiers: Encounter type: initial encounter Qualified Code(s): S39.012A - Strain of muscle, fascia and tendon of lower back, initial encounter - Discharge Dispostion Disposition: HOME Condition at time of disposition: Stable Admit: No - Patient Instructions Printed Discharge Instructions: DI for Back Strain or Sprain Additional Instructions: Rest, no heavy lifting or exercise until pain is resolved Hot soaks to neck and low back as often as possible/hot showers or Jacuzzis No massage or therapy until spasm is gone Continue ibuprofen 600 mg tablets every 6 hours for the next 3 days then as needed for pain and swelling If not significant improvement within 24 hours with medication and rest regime, followup with private physician for change in medications and /or therapy. - Post Discharge Activity Work/School Note: Back to Work
== END 2017-01-16 22:46 | disposition home or self-care (01) ==
LOC: JERFT 21:58
PROC: 3E0233Z Introduction of Anti-inflammatory into Muscle, Percutaneous Approach (ICD-10-PCS; principal; 2017-01-16)
DX: S39.012A Strain of muscle, fascia and tendon of lower back, initial encounter (principal); X50.1XXA Overexertion from prolonged static or awkward postures, initial encounter; Y93.67 Activity, basketball; Y92.310 Basketball court as the place of occurrence of the external cause; Y99.8 Other external cause status; I10 Essential (primary) hypertension; F31.9 Bipolar disorder, unspecified; G43.909 Migraine, unspecified, not intractable, without status migrainosus; F17.210 Nicotine dependence, cigarettes, uncomplicated
CPT/HCPCS: 99281-25

== ENCOUNTER 2018-06-24 16:50 | Inpatient (IN) | payer OTHER ==
[2018-06-24 18:34] VITALS: BMI 35.9
--- NOTE | 2018-06-24 20:58 | HP ---
COWS - Scale Resting Pulse: 0= NM 80 or Below Sweatin=Flushed/Facial Moisture Restless Observation: 1= Difficult to Sit Still Pupil Size: 1= Pupils >than Normal Bone or Joint Aches: 2= Severe Diffuse Aches Runny Nose/ Eye Tearin= Runny Nose/Eyes GI Upset > 30mins: 2= Nausea/Diarrhea Tremor Observation: 2= Slight Tremor Visible Yawning Observation: 1= 1-2x During Session Anxiety or Irritability: 2=Irritable/Anxious Goose Flesh Skin: 0=Smooth Skin COWS Score: 15 CIWA Score Nausea/Vomitin Muscle Tremors: 3 Anxiety: 3 Agitation: 2 Paroxysmal Sweats: 2 Orientation: 0-Oriented Tacttile Disturbances: 2-Mild Itch/Numbness/Burn Auditory Disturbances: 2-Mild Harshness/Frighten Visual Disturbances: 2-Mild Sensitivity Headache: 2-Mild CIWA-Ar Total Score: 20 - Admission Criteria OASAS Guidelines: Admission for Medically Managed Detox: Requires at least one of the followin. CIWA greater than 12 2. Seizures within the past 24 hours 3. Delirium tremens within the past 24 hours 4. Hallucinations within the past 24 hours 5. Acute intervention needed for co occurring medical disorder 6. Acute intervention needed for co occurring psychiatric disorder 7. Severe withdrawal that cannot be handled at a lower level of care (continued vomiting, continued diarrhea, abnormal vital signs) requiring intravenous medication and/or fluids 8. Admission ROS S - HPI Chief Complaint: DEPENDENT ON HEROIN, ETOH, COCAINE, MARIJUANA, K2, STREET METHADONE AND SUBOXONE Allergies/Adverse Reactions: Allergies Allergy/AdvReac Type Severity Reaction Status Date / Time Pork/Porcine Containing Allergy Severe Rash Verified 01/08/17 13:40 Products No Known Drug Allergies Allergy Verified 01/08/17 15:24 History of Present Illness: THE PT. IS REQUESTING ADMISSION TO THE DETOX UNIT AND CAME FOR H AND PE Exam Limitations: No Limitations - Ebola screening Have you traveled outside of the country in the last 21 days: No Have you had contact with anyone from an Ebola affected area: No Have you been sick,other than usual withdrawal symptoms: No Do you have a fever: No - Review of Systems Constitutional: See HPI, Malaise, Weakness EENT: reports: See HPI Respiratory: reports: See HPI Cardiac: reports: See HPI GI: reports: See HPI, Nausea, Abdominal cramping : reports: See HPI Musculoskeletal: reports: See HPI, Muscle Pain, Muscle Weakness Neuro: reports: See HPI, Headache, Tremors, Weakness Endocrine: reports: See HPI Hematology: reports: See HPI Psychiatric: reports: Judgement Intact, Orientated x3, Anxious, Depressed Patient History - Patient Medical History Hx Anemia: No Hx Asthma: Yes (on albuterol inhaler) Hx Chronic Obstructive Pulmonary Disease (COPD): No Hx Cancer: No Hx Cardiac Disorders: No Hx Congestive Heart Failure: No Hx Hypertension: Yes (no med) Hx Hypercholesterolemia: No Hx Pacemaker: No HX Cerebrovascular Accident: No Hx Seizures: No Hx Dementia: No Hx Diabetes: No Hx Gastrointestinal Disorders: No Hx Liver Disease: No Hx Genitourinary Disorders: No Hx Sexually Transmitted Disorders: No Hx Renal Disease (ESRD): No Hx Thyroid Disease: No Hx Human Immunodeficiency Virus (HIV): No Hx Hepatitis C: No Hx Depression: Yes (AND ANXIETY) Hx Suicide Attempt: No Hx Bipolar Disorder: No Hx Schizophrenia: Yes - Patient Surgical History Past Surgical History: Yes Hx Neurologic Surgery: No Hx Cataract Extraction: No Hx Cardiac Surgery: No Hx Lung Surgery: No Hx Breast Surgery: No Hx Breast Biopsy: No Hx Abdominal Surgery: No Hx Appendectomy: Yes (2005) Hx Cholecystectomy: No Hx Genitourinary Surgery: No Hx Section: No Hx Orthopedic Surgery: No Hx Hysterectomy: No Anesthesia Reaction: No - PPD History Date: 10/03/16 Results: 0 mm. - Smoking Cessation Smoking history: Never smoked Have you smoked in the past 12 months: No Aproximately how many cigarettes per day: 10 Cigars Per Day: 0 Hx Chewing Tobacco Use: No Initiated information on smoking cessation: Yes 'Breaking Loose' booklet given: 06/24/18 - Substance & Tx. History Hx Alcohol Use: Yes Hx Substance Use: Yes Substance Use Type: Alcohol, Cocaine, Heroin, Marijuana Hx Substance Use Treatment: Yes - Substances Abused Heroin Route: Injection Frequency: Daily Amount used: 4-6 B/D Age of first use: 21 Date of Last Use: 06/23/18 Alcohol Route: Oral Frequency: Daily Amount used: LIQUOR 2 P/D Age of first use: 17 Date of Last Use: 06/23/18 Cocaine Route: Injection Frequency: Daily Amount used: 2 G/D Age of first use: 23 Date of Last Use: 06/23/18 Marijuana/Hashish Route: Smoking Frequency: Daily Amount used: $20/D + K2 - $20/D Age of first use: 17 Date of Last Use: 06/23/18 Non-Rx Methadone Route: Oral Frequency: Daily Amount used: 50 MGS/D Age of first use: 30 Date of Last Use: 06/22/18 None Route: Oral Frequency: Daily Amount used: 16 MGS/ BID Age of first use: 18 Date of Last Use: 06/23/18 Family Disease History - Family Disease History Family Disease History: Diabetes: Father, Mother Other Family History: ONE UNCLE IS ADDICTED TO ETOH AND DRUGS Admission Physical Exam [facility] - Vital Signs Vital Signs: Vital Signs - 24 hr 06/24/18 18:33 Temperature 97.6 F Pulse Rate 76 Respiratory 18 Rate Blood Pressure 161/78 - Physical General Appearance: Yes: No Apparent Distress, Nourished, Appropriately Dressed , Obese, Tremorous, Sweating, Anxious HEENTM: Yes: Hearing grossly Normal, Normocephalic, Normal Voice, RAMON, Pharynx Normal Respiratory: Yes: Chest Non-Tender, Lungs Clear, Normal Breath Sounds, No Respiratory Distress, No Accessory Muscle Use, Plerual Rub Neck: Yes: Supple, Trachea in good position Breast: Yes: Axillae without masses, No masses Cardiology: Yes: Regular Rhythm, Regular Rate, S1, S2 Abdominal: Yes: Normal Bowel Sounds, Non Tender, Soft, Protuberent, Distended Back: Yes: Normal Inspection Musculoskeletal: Yes: full range of Motion, Gait Steady, Pelvis Stable, Muscle Pain, Muscle weakness Extremities: Yes: Normal Capillary Refill, Normal Range of Motion, Non-Tender, Tremors 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: Yes: 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 intact, Fully Oriented, Alert, Motor Strength 5/5, Normal Response, Depressed Affect Integumentary: Yes: Normal Color, Warm, Moist, Track [place] Lymphatic: Yes: Within Normal Limits - Diagnostic (1) Cannabis dependence Current Visit: Yes Status: Chronic (2) Anxiety and depression Current Visit: Yes Status: Chronic (3) Alcohol dependence with uncomplicated withdrawal Current Visit: No Status: Chronic (4) Asthma Current Visit: No Status: Chronic Qualifiers: Asthma severity: mild intermittent Asthma complication type: with status asthmaticus Qualified Code(s): J45.22 - Mild intermittent asthma with status asthmaticus (5) Cocaine dependence Current Visit: No Status: Chronic Qualifiers: Substance use status: uncomplicated Qualified Code(s): F14.20 - Cocaine dependence, uncomplicated (6) HTN (hypertension) Current Visit: No Status: Chronic Qualifiers: Hypertension type: essential hypertension Qualified Code(s): I10 - Essential (primary) hypertension (7) Nicotine dependence Current Visit: No Status: Chronic Qualifiers: Nicotine product type: cigarettes Substance use status: uncomplicated Qualified Code(s): F17.210 - Nicotine dependence, cigarettes, uncomplicated (8) Schizophrenia Current Visit: No Status: Chronic Qualifiers: Schizophrenia type: unspecified Qualified Code(s): F20.9 - Schizophrenia, unspecified (9) Morbid obesity Current Visit: Yes Status: Chronic (10) Heroin dependence Current Visit: Yes Status: Chronic Cleared for Admission [facility] - Detox or Rehab [facility] Level of Care: Medically Managed Detox Regimen/Protocol: Librium [facility] Breath Alcohol Content Breath Alcohol Content: 0 Urine Drug Screen - Results Drug Screen Negative: No Urine Drug Screen Results: THC-Marijuana, AGUSTINA-Cocaine Inpatient Rehab Admission - Rehab Decision to Admit Inpatient rehab admission?: No
[2018-06-24] MEDS ORDERED: LOPERAMIDE HCL 2 MG CAPSULE PO PRN (21:10)
[2018-06-24] MEDS ORDERED: P-EPHED 60MG/TRIPROLIDI 2.5MG TABLET PO PRN (21:10)
[2018-06-24] MEDS ORDERED: guaiFENesin/D-METHORPHAN HB 10 ML UNIT-DOSE CUPS PO PRN (21:10)
[2018-06-24] MEDS ORDERED: IBUPROFEN 400 MG TABLET (FP) PO PRN (21:10)
[2018-06-24] MEDS ORDERED: hydrOXYzine PAMOATE 50 MG CAPSULE (FP) PO PRN (21:10)
[2018-06-24] MEDS ORDERED: NICOTINE POLACRILEX 2 MG GUM BC PRN (21:10)
[2018-06-24] MEDS ORDERED: chlordiazePOXIDE HCL 25 MG CAPSULE PO PRN (21:10)
[2018-06-24] MEDS ORDERED: ACETAMINOPHEN 325 MG TABLET (FP) PO PRN (21:10)
[2018-06-24] MEDS ORDERED: MENTHOL/PHENOL 1 EACH UD MM PRN (21:10)
[2018-06-24] MEDS ORDERED: MAGNESIUM CITRATE 300 ML BOTTLE PO PRN (21:10)
[2018-06-24] MEDS ORDERED: MAGNESIUM HYDROX 2400MG/30ML ORAL SUSPENSION 30 ML CUP PO PRN (21:10)
[2018-06-24] MEDS ORDERED: MAG HYDROX/AL HYDROX/SIMETH 30 ML UNIT-DOSE CUP PO PRN (21:10)
[2018-06-24] MEDS ORDERED: ALBUTEROL SO4 2.5/IPRATROPIUM 0.5 INH SOL 3 ML VIAL.NEB. NEB PRN (21:15)
[2018-06-24] MEDS ORDERED: MELATONIN 5 MG TABLETS PO PRN (22:00)
[2018-06-24] MEDS ORDERED: chlordiazePOXIDE HCL 25 MG CAPSULE PO ONE (22:15)
[2018-06-25] MEDS: THIAMINE HCL 100 MG TABLET (FP) PO SCH ×2 (02:12→22:19)
[2018-06-25] MEDS: chlordiazePOXIDE HCL 25 MG CAPSULE PO SCH ×5 (03:04→22:19)
[2018-06-25] MEDS ORDERED: HYDROCHLOROTHIAZIDE 50 MG TABLET PO SCH (06:00)
[2018-06-25] MEDS: HYDROCHLOROTHIAZIDE 25 MG TABLET (FP) PO SCH (06:26)
--- NOTE | 2018-06-25 09:36 | PN ---
S CIWA - CIWA Score Nausea/Vomitin-No Nausea/No Vomiting Muscle Tremors: 4-Moderate,w/Arms Extend Anxiety: 4-Mod. Anxious/Guarded Agitation: 4-Moderately Restless Paroxysmal Sweats: 3 Orientation: 0-Oriented Tacttile Disturbances: 0-None Auditory Disturbances: 0-None Visual Disturbances: 0-None Headache: 1-Very Mild CIWA-Ar Total Score: 16 [facility] Progress Note (SOAP) Subjective: sweats shakes headache interrupted sleep body aches agitation Objective: 06/25/18 09:35 Vital Signs Temperature 97.5 F L 06/25/18 07:00 Pulse Rate 83 06/25/18 07:00 Respiratory Rate 20 06/25/18 07:00 Blood Pressure 141/61 06/25/18 07:00 O2 Sat by Pulse Oximetry (%) labs pending aaox3 ambulating no acute distress Assessment: 06/25/18 09:36 withdrawal sx Plan: continue detox increase fluids labs pending
[2018-06-25] MEDS ORDERED: PRENATAL VITAMINS W/ FOLIC ACID TABLET (FP) PO SCH (10:00)
[2018-06-25] MEDS ORDERED: NICOTINE 14 MG/24 HOURS TOPICAL PATCH TD SCH (10:00)
[2018-06-25 10:56] LABS: ALBUMIN 3.4 g/dl (3.4-5.0); ALK PHOS 81 U/L (45-117); ANION GAP 5 MMOL/L (8-16); BILIRUBIN,TOTAL 0.3 mg/dL (0.2-1); BLOOD UREA NITROGEN 15 mg/dL (7-18); CALCIUM 8.9 mg/dL (8.5-10.1); CHLORIDE 108 mmol/L (98-107); CO2 30 mmol/L (21-32); CREATININE 1.1 mg/dL (0.55-1.3); GLUCOSE,RANDOM 104 mg/dL (74-106); SGOT/AST 14 U/L (15-37); SGPT/ALT 23 U/L (13-61); SODIUM 142 mmol/L (136-145); TOT PROT 6.3 g/dl (6.4-8.2)
[2018-06-25 11:07] LABS: HEMATOCRIT 41.3 % (35.4-49); HEMOGLOBIN 14.1 GM/dL (11.7-16.9); MCH 30.1 pg (25.7-33.7); MCHC 34.3 g/dl (32.0-35.9); MEAN CELL VOLUME 87.8 fl (80-96); MEAN PLT VOLUME 9.5 fl (7.5-11.1); PLATELET COUNT 190 K/MM3 (134-434); RDW 13.9 % (11.9-15.9)
--- NOTE | 2018-06-25 11:49 | CONSULT ---
[facility] Psychiatric Consult - Data Date of interview: 06/25/00 Admission source: [facility] Identifying data: Patient is a 37 year old male, , father of one, unemployed, and supported by [facility]. This is one of multiple admissions for patient. Patient admitted to for alcohol and opiate dependence. Substance Abuse History: Substance & Tx. History. Hx Alcohol Use: Yes. Hx Substance Use: Yes. Substance Use Type: Alcohol, Cocaine, Heroin, Marijuana. Hx Substance Use Treatment: Yes. - Substances Abused. Heroin. Route: Injection. Frequency: Daily. Amount used: 4-6 B/D. Age of first use: 21. Date of Last Use: 06/23/18. Alcohol. Route: Oral. Frequency: Daily. Amount used: LIQUOR 2 P/D. Age of first use: 17. Date of Last Use: 06/23/18. Cocaine. Route: Injection. Frequency: Daily. Amount used: 2 G/D. Age of first use: 23. Date of Last Use: 06/23/18. Marijuana/Hashish. Route: Smoking. Frequency: Daily. Amount used: $20/D + K2 - $20/D. Age of first use : 17. Date of Last Use: 06/23/18. Non-Rx Methadone. Route: Oral. Frequency: Daily. Amount used: 50 MGS/D. Age of first use: 30. Date of Last Use: 06/22/18. None. Route: Oral. Frequency: Daily. Amount used: 16 MGS/ BID. Age of first use: 18. Date of Last Use: 06/23/18 Medical History: Asthma, hypertension, Appendectomy Psychiatric History: Mr. Petersen first psychiatric contact was at 17 years of age at an outpatient clinic (unable to recall why he saw a psychiatrist at this age). Patient reports one psychiatric hospitalization at [facility] in December of 2017 for drug induced psychosis. States he was prescribed seroquel , xanac, and buspar. Diagnosis of schizoaffective disorder. He was discharged to the [facility] but due to lack of transportation availability he was unable to attend the outpatient rehab program. As per previous entries patient was maintained on Invega sustenna 234 IM injection. He denies accepting Invega today, states he is now seroquel. He denies current outpatient psychiatric care and states he receives refills from local emergency rooms. Mr. Petersen reports medication noncompliance. He denies current auditory/visual hallucinations and SI/HI. Physical/Sexual Abuse/Trauma History: denies. Mental Status Exam - Mental Status Exam Alert and Oriented to: Time, Place, Person Cognitive Function: Good Patient Appearance: Well Groomed Mood: Euthymic Affect: Mood Congruent Patient Behavior: Cooperative Speech Pattern: Appropriate Voice Loudness: Normal Thought Process: Intact, Goal Oriented Thought Disorder: Not Present Hallucinations: Denies Suicidal Ideation: Denies Homicidal Ideation: Denies Insight/Judgement: Poor Sleep: Poorly Appetite: Fair Muscle strength/Tone: Normal Gait/Station: Normal Psychiatric Findings - Problem List ([place] 1, 2,3) (1) Cannabis dependence Status: Chronic (2) Alcohol dependence with uncomplicated withdrawal Status: Acute (3) Schizoaffective disorder Status: Chronic Qualifiers: Schizoaffective disorder type: bipolar Qualified Code(s): F25.0 - Schizoaffective disorder, bipolar type Comment: Self-report. (4) Cocaine dependence Status: Chronic Qualifiers: Substance use status: uncomplicated Qualified Code(s): F14.20 - Cocaine dependence, uncomplicated - Initial Treatment Plan Initial Treatment Plan: Psychoeducation provided. Detoxification in progress. Will order Seroquel 50mg qhs. Benefits and side effects discussed. Verbal consent given.
[2018-06-25] MEDS ORDERED: QUEtiapine FUMARATE 50 MG TABLET PO SCH (22:00)
[2018-06-26] MEDS: chlordiazePOXIDE HCL 25 MG CAPSULE PO SCH (05:56)
[2018-06-26] MEDS: HYDROCHLOROTHIAZIDE 25 MG TABLET (FP) PO SCH (06:56)
[2018-06-26 07:43] VITALS: BP 145/74; PULSE 56; TEMP 96.3
[2018-06-26] MEDS ORDERED: chlordiazePOXIDE 5 MG CAPSULE PO SCH (23:00)
[2018-06-27] MEDS ORDERED: chlordiazePOXIDE HCL 10 MG CAPSULE PO SCH (23:00)
== END 2018-06-26 09:12 | disposition left against medical advice (07) | DRG 770 ==
LOC: YASAS 16:50 → Y6N 21:58
PROVIDERS: ADMIT Surgery; ATTEND Surgery
PROC: HZ2ZZZZ Detoxification Services for Substance Abuse Treatment (ICD-10-PCS; principal; 2018-06-24)
DX: F10.230 Alcohol dependence with withdrawal, uncomplicated (principal); F14.20 Cocaine dependence, uncomplicated; F12.20 Cannabis dependence, uncomplicated; F17.210 Nicotine dependence, cigarettes, uncomplicated; F25.0 Schizoaffective disorder, bipolar type; F41.9 Anxiety disorder, unspecified; F32.9 Major depressive disorder, single episode, unspecified; I10 Essential (primary) hypertension; J45.909 Unspecified asthma, uncomplicated; E66.01 Morbid (severe) obesity due to excess calories; Z68.35 Body mass index [BMI] 35.0-35.9, adult
CPT/HCPCS: 36415; 80053; 85027; 86593; 87389

== ENCOUNTER 2018-08-10 15:15 | Emergency (ER) | payer OTHER ==
[2018-08-10 15:22] VITALS: BP 151/81; PULSE 92; TEMP 98; BMI 35.9
--- NOTE | 2018-08-10 15:44 | PDOC ---
History of Present Illness - General Chief Complaint: Pain, Acute Stated Complaint: RT KNEE PAIN Time Seen by Provider: 08/10/18 15:26 History Source: Patient Exam Limitations: No Limitations Past History - Travel Traveled outside of the country in the last 30 days: No Close contact w/someone who was outside of country & ill: No - Past Medical History Allergies/Adverse Reactions: Allergies Allergy/AdvReac Type Severity Reaction Status Date / Time Pork/Porcine Containing Allergy Severe Rash Verified 08/10/18 15:22 Products No Known Drug Allergies Allergy Verified 08/10/18 15:22 Home Medications: Ambulatory Orders Albuterol Sulfate Inhaler - [Ventolin Hfa Inhaler -] 1 - 2 inh PO Q4H 09/30/16 Ibuprofen 800 mg PO TID #30 tablet 08/10/18 Oxycodone HCl/Acetaminophen [Percocet 10-325 mg Tablet] 1 each PO QID PRN Anemia: No Asthma: Yes (on albuterol inhaler) Cancer: No Cardiac Disorders: No CVA: No COPD: No CHF: No Dementia: No Diabetes: No GI Disorders: No Disorders: No HTN: Yes (no med) Hypercholesterolemia: No Kidney Stones: No Liver Disease: No Psychiatric Problems: Yes (BIPOLAR; MIGRAINE;SCHIZOAFFECTIVEDISORDER) Seizures: No Thyroid Disease: No - Surgical History Abdominal Surgery: No Appendectomy: Yes (2005) Cardiac Surgery: No Cholecystectomy: No Gastric Stapling: No GI Surgery: No Lung Surgery: No Neurologic Surgery: No Orthopedic Surgery: No - Reproductive History Testicular Surgery: No - Immunization History Immunization Up to Date: Yes - Suicide/Smoking/Psychosocial Hx Smoking History: Current every day smoker Have you smoked in the past 12 months: No Number of Cigarettes Smoked Daily: 10 Cigars Per Day: 0 Information on smoking cessation initiated: No 'Breaking Loose' booklet given: 06/24/18 Hx Alcohol Use: Yes Drug/Substance Use Hx: Yes (polysubstance abuse) Substance Use Type: Alcohol, Cocaine, Heroin, Marijuana Hx Substance Use Treatment: Yes Review of Systems - Review of Systems Able to Perform ROS?: Yes Comments:: 08/10/18 15:43 CONSTITUTIONAL: Absent: fever, chills, diaphoresis, generalized weakness, malaise, loss of appetite HEENT: Absent: rhinorrhea, nasal congestion, throat pain, throat swelling, difficulty swallowing, mouth swelling, ear pain, eye pain, visual Changes CARDIOVASCULAR: Absent: chest pain, loss of consciousness, palpitations, irregular heart rate, peripheral edema RESPIRATORY: Absent: cough, shortness of breath, dyspnea with exertion, orthopnea, wheezing, stridor, hemoptysis GASTROINTESTINAL: Absent: abdominal pain, abdominal distension, nausea, vomiting, diarrhea, constipation, melena, hematochezia GENITOURINARY: Absent: dysuria, frequency, urgency, hesitancy, hematuria, flank pain, genital pain MUSCULOSKELETAL: Present: R knee pain Absent: myalgia, joint swelling SKIN: Absent: rash, itching, pallor HEMATOLOGIC/IMMUNOLOGIC: Absent: easy bleeding, easy bruising, lymphadenopathy, frequent infections ENDOCRINE: Absent: unexplained weight gain, unexplained weight loss, heat intolerance, cold intolerance NEUROLOGIC: Absent: headache, focal weakness or paresthesias, dizziness, unsteady gait, seizure, mental status changes, bladder or bowel incontinence PSYCHIATRIC: Absent: anxiety, depression, suicidal or homicidal ideation, hallucinations. Is the patient limited Tuvaluan proficient: No *Physical Exam - Vital Signs Last Vital Signs Temp Pulse Resp BP Pulse Ox 98 F 92 H 18 151/81 99 08/10/18 15:19 08/10/18 15:19 08/10/18 15:19 08/10/18 15:19 08/10/18 15:19 - Physical Exam Comments: 08/10/18 15:44 GENERAL: Well developed, well nourished. Awake and alert. No acute distress. MUSCULOSKELETAL TTP of the R lateral knee. Pt unable to fully extend knee d/t pain. Normal range of motion at all other joints. No bony deformities or tenderness. No CVA tenderness. EXTREMITIES: No cyanosis. No clubbing. No edema. No calf tenderness. SKIN: Warm and dry. Normal capillary refill. No rashes. No jaundice. NEUROLOGICAL: Alert, awake, appropriate. Cranial nerves 2-12 intact. No deficits to light touch and temperature in face, upper extremities and lower extremities. No motor deficits in the in face, upper extremities and lower extremities. Normoreflexic in the upper and lower extremities. Normal speech. Toes are down- going bilaterally. Gait is normal without ataxia. PSYCHIATRIC: Cooperative. Good eye contact. Appropriate mood and affect. Medical Decision Making - Medical Decision Making 08/10/18 16:48 The patient is a 37-year-old male past medical history of bipolar disorder, substance abuse, recent rehabilitation stint for heroin abuse, who presents to the ER today for right knee pain. Patient states that he fell approximately 3 weeks ago playing basketball and was taken to [facility] for evaluation. He was told at that time he had a fracture in his knee. He states that today his knee hurts and he is requesting Percocet. Patient states he was discharged with Suboxone from rehabilitation. Denies numbness and tingling to the extremity and weakness to the extremity. Patient has crutches however he is not using them. A/P: Knee fracture? Steady gait with no limp on ambulation X-rays obtained of the right knee. Shows a healing tibial plateau fracture to the lateral right tibia. Toradol given for pain. [employer] queried. Patient given 8 days worth of Suboxone on 08/09/18 Reference #: [id number] Defer narcotic treatment at this time. Instructed patient to remain nonweightbearing and ibuprofen as needed for pain. Patient instructed to follow up with [facility] where he initially had the 3 taking care of. I discussed the physical exam findings, ancillary test results and final diagnoses with the patient. I answered all of the patient's questions. The patient was satisfied with the care received and felt comfortable with the discharge plan and treatment plan. The Patient agrees to follow up with the primary care physician/specialist within 24-72 hours. Return precautions were given. *DC/Admit/Observation/Transfer Diagnosis at time of Disposition: Poly-drug misuser Tibial plateau fracture, right Qualifiers: Encounter type: subsequent encounter Fracture type: closed Fracture healing: with routine healing Qualified Code(s): S82.141D - Displaced bicondylar fracture of right tibia, subsequent encounter for closed fracture with routine healing - Discharge Dispostion Disposition: HOME Condition at time of disposition: Stable Decision to Admit order: No - Referrals Referrals: Adelaida Manzanares MD [Primary Care Provider] - Ruben Mckeon DO [Staff Physician] - - Patient Instructions Additional Instructions: You have a fracture of your Tibial platau on the R side It is important you use the crutches AT ALL TIMES and remain non-weight bearing Take your suboxone as directed You may take Motrin 800mg every 8 hours as needed for pain Please follow up with orthopedics and your primary care doctor regarding this issue Return to the ED for any new or worsening symptoms - Post Discharge Activity
[2018-08-10] MEDS ORDERED: KETOROLAC TROMETHAMINE 60 MG/2 ML VIAL IM ONE (15:51)
[2018-08-10] MEDS ORDERED: KETOROLAC TROMETHAMINE 60 MG/2 ML VIAL ONE (15:53)
[2018-08-10] MEDS ORDERED: ACETAMINOPHEN 325 MG TABLET (FP) PO ONE (16:58)
[2018-08-10] MEDS ORDERED: ACETAMINOPHEN 325 MG TABLET (FP) ONE (17:00)
== END 2018-08-10 16:55 | disposition home or self-care (01) ==
LOC: JERFT 15:15
PROC: 3E0233Z Introduction of Anti-inflammatory into Muscle, Percutaneous Approach (ICD-10-PCS; principal; 2018-08-10)
DX: S82.141D Displaced bicondylar fracture of right tibia, subsequent encounter for closed fracture with routine healing (principal); W18.39XD Other fall on same level, subsequent encounter; Y93.67 Activity, basketball; Y92.310 Basketball court as the place of occurrence of the external cause; Y99.8 Other external cause status; I10 Essential (primary) hypertension; F31.9 Bipolar disorder, unspecified; F25.9 Schizoaffective disorder, unspecified; F19.20 Other psychoactive substance dependence, uncomplicated
CPT/HCPCS: 73562-TC-RT-FY; 73590-TC-RT-FY; 96372; 99281-25

== ENCOUNTER 2018-08-13 17:08 | Inpatient (IN) | payer OTHER ==
[2018-08-13] MEDS ORDERED: MELATONIN 5 MG TABLETS PO PRN (22:00)
--- NOTE | 2018-08-13 22:20 | HP ---
COWS - Scale Goose Flesh Skin: 0=Smooth Skin CIWA Score Nausea/Vomitin-No Nausea/No Vomiting Muscle Tremors: None Anxiety: 1-Mildly Anxious Agitation: 0-Normal Activity Paroxysmal Sweats: No Perspiration Orientation: 0-Oriented Tacttile Disturbances: 0-None Auditory Disturbances: 0-None Visual Disturbances: 0-None Headache: 3-Moderate CIWA-Ar Total Score: 4 - Admission Criteria OASAS Guidelines: Admission for Medically Managed Detox: Requires at least one of the followin. CIWA greater than 12 2. Seizures within the past 24 hours 3. Delirium tremens within the past 24 hours 4. Hallucinations within the past 24 hours 5. Acute intervention needed for co occurring medical disorder 6. Acute intervention needed for co occurring psychiatric disorder 7. Severe withdrawal that cannot be handled at a lower level of care (continued vomiting, continued diarrhea, abnormal vital signs) requiring intravenous medication and/or fluids 8. Admission ROS [facility] Chief Complaint: Here with hx heroin, alcohol, cocaine and marijuana use. Allergies/Adverse Reactions: Allergies Allergy/AdvReac Type Severity Reaction Status Date / Time Pork/Porcine Containing Allergy Severe Rash Verified 08/13/18 20:42 Products No Known Drug Allergies Allergy Verified 08/13/18 20:42 History of Present Illness: Patient received detox at [facility] and left approx 1 week ago for alcohol and opiate use disorder. Patient relapsed w/ opiates and alcohol over the last 2 days but CIWA is a '4' and COWS is a '2'. Patient with minimal w/drawal symptoms and meets requirements and is eligible for rehab. Alcohol use began at age 16. Current usage x 3 months. Heroin use began at age 17. Current usage x 3 months. IV and intranasal. Patient currently on Suboxone and this medication will be restarted/given to treat opiate use disorder. Cocaine use began at age 14. Smoke and sniffs. Marijuana use began at age 17. Nicotine use began at age 12. States has recently increased use to 2 PPD. Denies seizures,blackouts, or overdoses. No Narcan kit at home. Encouraged PATIENT INFORMED THAT NO OPIATE PAIN MEDICATIONS ARE PROVIDED AT THIS FACILITY AND VERBALIZES AN UNDERSTANDING. Patient instructed that pain will be managed w / NSAIDs. PMHx:HTN - no meds; Asthma - no recent exacerbation Patient was seen at [facility] ED on 08/10: Discharge report as follows: "You have a fracture of your Tibial platau on the R side It is important you use the crutches AT ALL TIMES and remain non-weight bearing Take your suboxone as directed You may take Motrin 800mg every 8 hours as needed for pain Please follow up with orthopedics and your primary care doctor regarding this issue" MHHx: Anxiety. Denies depression. Denies thoughts of harming self or others. Patient Name: Devan Walter Date: 1980 Address: [address] [place] [address] Sex: Male Rx Written Rx Dispensed Drug Quantity Days Supply Prescriber Name 08/09/2018 08/09/2018 buprenorphine-naloxone 8-2 mg sl tablet 16 8 Gatito Sands MD Patient Name: Devan Ocampo Date: 1980 Address: [address] [place] [address] [address] [place] [address] Sex: Male Rx Written Rx Dispensed Drug Quantity Days Supply Prescriber Name 07/16/2018 07/16/2018 tramadol hcl 50 mg tablet 20 5 Yrn Cavazos Jr 07/11/2018 07/11/2018 oxycodone-acetaminophen 5-325 mg tablet 15 3 Morelia Urbano MD Exam Limitations: No Limitations - Ebola screening Have you traveled outside of the country in the last 21 days: No Have you had contact with anyone from an Ebola affected area: No Do you have a fever: No - Review of Systems Constitutional: No Symptoms Reported EENT: reports: Blurred Vision Respiratory: reports: No Symptoms reported Cardiac: reports: No Symptoms Reported GI: reports: Nausea, Vomiting (2 days ago - food), Indigestion (occ acid reflux - sometimes takes maalox) : reports: No Symptoms Reported Musculoskeletal: reports: Other ((R) leg knee pain since 07/28/17. See HPI) Integumentary: reports: Lesions ((R) leg) Neuro: reports: Headache (mod) Endocrine: reports: No Symptoms Reported Hematology: reports: No Symptoms Reported Psychiatric: reports: Judgement Intact, Agitated, Anxious (Denies thoughts of harming self or others) Patient History - Patient Medical History Hx Anemia: No Hx Asthma: Yes (on albuterol inhaler) Hx Chronic Obstructive Pulmonary Disease (COPD): No Hx Cancer: No Hx Cardiac Disorders: No Hx Congestive Heart Failure: No Hx Hypertension: Yes (no med) Hx Hypercholesterolemia: No Hx Pacemaker: No HX Cerebrovascular Accident: No Hx Seizures: No Hx Dementia: No Hx Diabetes: No Hx Gastrointestinal Disorders: No Hx Liver Disease: No Hx Genitourinary Disorders: No Hx Sexually Transmitted Disorders: No Hx Renal Disease (ESRD): No Hx Thyroid Disease: No Hx Human Immunodeficiency Virus (HIV): No Hx Hepatitis C: No Hx Depression: Yes (AND ANXIETY) Hx Suicide Attempt: Yes (02/28- OVERDOSE. ADMITTED TO [facility].) Hx Bipolar Disorder: No Hx Schizophrenia: Yes - Patient Surgical History Past Surgical History: Yes Hx Neurologic Surgery: No Hx Cataract Extraction: No Hx Cardiac Surgery: No Hx Lung Surgery: No Hx Breast Surgery: No Hx Breast Biopsy: No Hx Abdominal Surgery: No Hx Appendectomy: Yes (2005) Hx Cholecystectomy: No Hx Genitourinary Surgery: No Hx Section: No Hx Orthopedic Surgery: No Hx Hysterectomy: No Anesthesia Reaction: No - PPD History Previous Implant?: Yes Documented Results: Negative w/o proof Date: 06/27/18 Results: 0 mm. PPD to be Administered?: No - Smoking Cessation Smoking history: Current every day smoker Have you smoked in the past 12 months: No Aproximately how many cigarettes per day: 40 Cigars Per Day: 0 Hx Chewing Tobacco Use: No Initiated information on smoking cessation: Yes 'Breaking Loose' booklet given: 08/13/18 - Substance & Tx. History Hx Alcohol Use: Yes Hx Substance Use: Yes Substance Use Type: Alcohol, Cocaine, Heroin, Marijuana Hx Substance Use Treatment: Yes (detox, rehab, Currently on Suboxone) - Substances abused Heroin Other (specify): SNIFF Frequency: Daily Amount used: 1 1/2 BUNDLE Age of first use: 17 Date of last use: 08/13/18 Alcohol Substance route: Oral Frequency: Daily Amount used: 1/5 liquor daily Age of first use: 16 (Current usage x 8 years) Date of last use: 08/13/18 Marijuana/Hashish Substance route: Smoking Frequency: Daily Amount used: $20 Age of first use: 14 Date of last use: 08/13/18 Cocaine Substance route: Smoking Frequency: Daily Amount used: 8 ball Age of first use: 13 (Current usage x 8 months) Date of last use: 08/13/18 Family Disease History - Family Disease History Family Disease History: Diabetes: Father, Mother Admission Physical Exam S - Vital Signs Vital Signs: Vital Signs - 24 hr 08/13/18 20:39 Temperature 97.6 F Pulse Rate 77 Respiratory 18 Rate Blood Pressure 153/94 - Physical General Appearance: Yes: No Apparent Distress, Obese, Anxious HEENTM: Yes: EOMI, Hearing grossly Normal, Normocephalic, RAMON (Pupils = 3 mm), Pharynx Normal Respiratory: Yes: Chest Non-Tender, Lungs Clear, Normal Breath Sounds, No Respiratory Distress Neck: Yes: No masses,lesions,Nodules, Supple Breast: Yes: Breast Exam Deferred Cardiology: Yes: Regular Rhythm, Regular Rate, S1, S2 Abdominal: Yes: Normal Bowel Sounds, Non Tender, Soft, Protuberent (Increased abdominal adiposity) Genitourinary: Yes: Within Normal Limits Back: Yes: Normal Inspection Musculoskeletal: Yes: full range of Motion, Joint swelling (Increased tenderness (R) knee area. (R) knee larger than (L) w/ increased warmth.), Other (Walks w/ limp favoring (R) leg) Extremities: Yes: Normal Capillary Refill, Normal Range of Motion, Other (Toes/ feet equally) 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: Yes: clerk guide II-XII NML intact, Fully Oriented, Alert, Motor Strength 5/5 Integumentary: Yes: Normal Color, Warm, Pitting Edema (BLE edema toes to 2" below knee (R) > (L)), Track Coello (Old track coello (R) arm.), Other ( Superficial abrasions (R) lawrence area.) Lymphatic: Yes: Within Normal Limits - Diagnostic (1) History of asthma Current Visit: Yes Status: Chronic (2) Edema Current Visit: Yes Status: Chronic Qualifiers: Edema type: localized Qualified Code(s): R60.0 - Localized edema Comment: BLE (3) Cannabis dependence Current Visit: Yes Status: Chronic (4) Insomnia Current Visit: Yes Status: Chronic Qualifiers: Insomnia type: unspecified Qualified Code(s): G47.00 - Insomnia, unspecified (5) Tibial plateau fracture, right Current Visit: Yes Status: Acute Qualifiers: Encounter type: subsequent encounter Fracture type: closed Fracture healing: with routine healing Qualified Code(s): S82.141D - Displaced bicondylar fracture of right tibia, subsequent encounter for closed fracture with routine healing (6) Cocaine dependence Current Visit: Yes Status: Chronic Qualifiers: Substance use status: uncomplicated Qualified Code(s): F14.20 - Cocaine dependence, uncomplicated (7) HTN (hypertension) Current Visit: Yes Status: Chronic Qualifiers: Hypertension type: unspecified Qualified Code(s): I10 - Essential (primary ) hypertension Comment: Not on medication (8) Nicotine dependence Current Visit: No Status: Chronic Qualifiers: Nicotine product type: cigarettes Substance use status: uncomplicated Qualified Code(s): F17.210 - Nicotine dependence, cigarettes, uncomplicated (9) Opioid dependence on agonist therapy Current Visit: Yes Status: Chronic Comment: On Suboxone (10) Alcohol use disorder, moderate, in early remission Current Visit: Yes Status: Acute Cleared for Admission [facility] - Detox or Rehab Claeared for Rehab Admission: Yes Breathalyzer - Breathalyzer Breathalyzer: 0 Urine Drug Screen - Test Device Lot number: [id number] Expiration date: 04/12/20 - Control Is test valid?: Yes - Results Drug screen NEGATIVE: No Urine drug screen results: THC-Marijuana, AGUSTINA-Cocaine, MTD-Methadone, BZO- Benzodiazepines, BUP-Suboxone Inpatient Rehab Admission - Rehab Decision to Admit Inpatient rehab admission?: Yes - Initial Determination Are CD services needed?: Yes Free of communicable disease: Yes Not in need of hospitalization: Yes - Rehab Admission Criteria Previous failed treatment: Yes Poor recovery environment: Yes Comorbidities: Yes Lacks judgement: No Patient is meeting Inpatient Rehab admission criteria:: Yes
[2018-08-13] MEDS ORDERED: guaiFENesin 200 MG/10 ML 10 ML UNIT-DOSE CUPS PO PRN (23:49)
[2018-08-13] MEDS ORDERED: MENTHOL/PHENOL 1 EACH UD MM PRN (23:49)
[2018-08-13] MEDS ORDERED: MAG HYDROX/AL HYDROX/SIMETH 30 ML UNIT-DOSE CUP PO PRN (23:49)
[2018-08-13] MEDS ORDERED: MAGNESIUM CITRATE 300 ML BOTTLE PO PRN (23:49)
[2018-08-13] MEDS ORDERED: P-EPHED 60MG/TRIPROLIDI 2.5MG TABLET PO PRN (23:49)
[2018-08-13] MEDS ORDERED: MAGNESIUM HYDROX 2400MG/30ML ORAL SUSPENSION 30 ML CUP PO PRN (23:49)
[2018-08-13] MEDS ORDERED: LOPERAMIDE HCL 2 MG CAPSULE PO PRN (23:49)
[2018-08-13] MEDS ORDERED: hydrOXYzine PAMOATE 50 MG CAPSULE (FP) PO PRN (23:49)
[2018-08-13] MEDS ORDERED: IBUPROFEN 400 MG TABLET (FP) PO PRN (23:49)
[2018-08-13] MEDS ORDERED: ALBUTEROL SO4 0.083% IH SOL 2.5 MG/3 ML VIAL.NEB. NEB PRN (23:55)
--- NOTE | 2018-08-14 10:08 | EKG ---
Test Reason : Blood Pressure : / mmHG Vent. Rate : 076 BPM Atrial Rate : 076 BPM P-R Int : 144 ms QRS Dur : 078 ms QT Int : 394 ms P-R-T Axes : 062 028 060 degrees QTc Int : 443 ms SINUS RHYTHM WITH MARKED SINUS ARRHYTHMIA OTHERWISE NORMAL ECG WHEN COMPARED WITH ECG OF 04-JAN-2017 19:22, NONSPECIFIC T WAVE ABNORMALITY NO LONGER EVIDENT IN ANTERIOR LEADS Confirmed by ZOFIA GALAVIZ, FLORA ([id number]) on 08/14/2018 10:08:04 AM Referred By: Confirmed By:FLORA ARMIJO MD
[2018-08-14] MEDS: PRENATAL VITAMINS W/ FOLIC ACID TABLET (FP) PO SCH (10:43)
[2018-08-14] MEDS: BUPRENORPHINE/NALOXONE 8 MG/2 MG FILM PACKET SL SCH ×2 (10:43→21:49)
[2018-08-14] MEDS: NICOTINE 21 MG/24 HOURS TOPICAL PATCH TD SCH (10:43)
[2018-08-14] MEDS: PANTOPRAZOLE 20 MG TABLET (FP) PO SCH ×2 (10:43→21:49)
[2018-08-14] MEDS: BACITRACIN 15 GM TUBE TOPICAL OINTMENT TP SCH ×2 (10:45→21:58)
[2018-08-14] MEDS: amLODIPine BESYLATE 10 MG TABLET (FP) PO SCH (11:10)
[2018-08-14 12:25] LABS: HEMATOCRIT 40.4 % (35.4-49); HEMOGLOBIN 13.4 GM/dL (11.7-16.9); MCH 29.2 pg (25.7-33.7); MCHC 33.1 g/dl (32.0-35.9); MEAN CELL VOLUME 88.4 fl (80-96); MEAN PLT VOLUME 9.5 fl (7.5-11.1); PLATELET COUNT 191 K/MM3 (134-434); RBC 4.58 M/mm3 (4.00-5.60); RDW 14.5 % (11.9-15.9); WHITE BLOOD COUNT 7.9 K/mm3 (4.0-10.0)
[2018-08-14 12:30] LABS: ALBUMIN 3.4 g/dl (3.4-5.0); ALK PHOS 114 U/L (45-117); ANION GAP 8 MMOL/L (8-16); BILIRUBIN,TOTAL 0.4 mg/dL (0.2-1); BLOOD UREA NITROGEN 13 mg/dL (7-18); CALCIUM 8.8 mg/dL (8.5-10.1); CHLORIDE 105 mmol/L (98-107); CO2 28 mmol/L (21-32); CREATININE 1.1 mg/dL (0.55-1.3); GLUCOSE,RANDOM 142 mg/dL (74-106); POTASSIUM 3.9 mmol/L (3.5-5.1); SGOT/AST 28 U/L (15-37); SGPT/ALT 37 U/L (13-61); SODIUM 141 mmol/L (136-145); TOT PROT 6.4 g/dl (6.4-8.2)
[2018-08-14] MEDS: QUEtiapine FUMARATE 50 MG TABLET PO SCH (21:49)
[2018-08-14] MEDS: THIAMINE HCL 100 MG TABLET (FP) PO SCH (21:49)
[2018-08-15] MEDS: PRENATAL VITAMINS W/ FOLIC ACID TABLET (FP) PO SCH (09:48)
[2018-08-15] MEDS: amLODIPine BESYLATE 10 MG TABLET (FP) PO SCH (09:48)
[2018-08-15] MEDS: BACITRACIN 15 GM TUBE TOPICAL OINTMENT TP SCH (09:48)
[2018-08-15] MEDS: BUPRENORPHINE/NALOXONE 8 MG/2 MG FILM PACKET SL SCH ×2 (09:48→21:14)
[2018-08-15] MEDS: PANTOPRAZOLE 20 MG TABLET (FP) PO SCH ×2 (09:48→21:14)
[2018-08-15] MEDS: NICOTINE 21 MG/24 HOURS TOPICAL PATCH TD SCH (09:48)
[2018-08-15] MEDS: ACETAMINOPHEN 325 MG TABLET (FP) PO PRN (09:49)
[2018-08-15 10:44] VITALS: PULSE 80
[2018-08-15] MEDS: BACITRACIN 0.9 GM PACKET TP SCH ×2 (10:53→21:14)
--- NOTE | 2018-08-15 11:18 | CONSULT ---
[facility] Psychiatric Consult - Data Date of interview: 08/15/18 Admission source: Health system Identifying data: Mr Petersen is a 37 years old male, father of a 7 years old son, unemployed on SSI, domiciled living with his girlfriend seeking inpatient rehab treatment for alcohol, opioid, cocaine and cannabis Substance Abuse History: Reports history of alcohol, heroin, cocaine and marijuana use. Refer to addiction couselor's summary for further information Medical History: Significant for bronchial asthma, hypertension and history of appendectomy and orthosurgery for fracture right tibia. Smokes cigarettes 2 ppd Psychiatric History: Reports that his first psychiatric contact was as outpatient at age 17 when he was diagnosed with Schizoaffective Disorder and started on medications. Reports one previous psychiatric hospitalization at [facility] in December 2017 for suicidal attempt by overdose. He reports that he was discharged on Seroquel 200 mg po BID, Xanax 2 mg po TID and Buspar(dose unknown ) and referred to [facility] for aftercare. Claims that due to lack of transportation , he could not attend aftercare. Reports that he has not been receiving outpatient services since but would get refills of his psychotropic medications through local EDs or wnever admitted to substance abuse program like this time. Told speech writer that he has been off medications for the past 2 months. According to this facility EMR, he was seen by JESE Joseph on 06/25/18 and prescribed Seroquel 50 mg po HS. At present, denies experiencing psychotic, manic or depressive symptoms, S/H ideations. However, reports sleeping poorly Physical/Sexual Abuse/Trauma History: Denies history of emotional, physical or sexual abuse as well as DV relationship Psychiatric Findings - Problem List ([place] 1, 2,3) (1) Schizoaffective disorder Current Visit: No Status: Chronic Qualifiers: Schizoaffective disorder type: bipolar Qualified Code(s): F25.0 - Schizoaffective disorder, bipolar type Comment: Self-report. (2) Substance-induced sleep disorder Current Visit: Yes Status: Acute (3) Alcohol dependence Current Visit: Yes Status: Acute (4) Opioid dependence Current Visit: Yes Status: Acute (5) Cocaine dependence Current Visit: Yes Status: Acute Qualifiers: Substance use status: uncomplicated Qualified Code(s): F14.20 - Cocaine dependence, uncomplicated (6) Cannabis dependence Current Visit: Yes Status: Acute (7) Nicotine dependence Current Visit: No Status: Chronic Qualifiers: Nicotine product type: cigarettes Substance use status: uncomplicated Qualified Code(s): F17.210 - Nicotine dependence, cigarettes, uncomplicated (8) Tibial plateau fracture, right Current Visit: Yes Status: Resolved Qualifiers: Encounter type: subsequent encounter Fracture type: closed Fracture healing: with routine healing Qualified Code(s): S82.141D - Displaced bicondylar fracture of right tibia, subsequent encounter for closed fracture with routine healing (9) HTN (hypertension) Current Visit: Yes Status: Chronic Qualifiers: Hypertension type: unspecified Qualified Code(s): I10 - Essential (primary ) hypertension Comment: Not on medication (10) History of asthma Current Visit: Yes Status: Chronic - Initial Treatment Plan Initial Treatment Plan: 1) Continue Seroquel 50 mg po HS. 2) Continue inpatient rehabilitation
--- NOTE | 2018-08-15 13:39 | PN ---
[facility] Progress Note (SOAP) Subjective: client states he is thinking about leaving tomorrow. Objective: 08/15/18 13:37 CBC, BMP 08/14/18 08:25 08/14/18 08:25 08/15/18 13:38 Vital Signs (72 hours) 08/13/18 08/14/18 08/14/18 20:39 02:00 03:30 Temperature 97.6 F 97.9 F Pulse Rate 77 87 Respiratory 18 20 18 Rate Blood Pressure 153/94 160/80 08/14/18 08/14/18 08/15/18 06:56 10:00 00:30 Temperature 96.9 F L Pulse Rate 86 87 Respiratory 20 18 Rate Blood Pressure 140/75 153/76 08/15/18 08/15/18 08/15/18 03:30 06:48 10:00 Temperature 97.2 F L Pulse Rate 79 80 Respiratory 18 20 Rate Blood Pressure 142/84 137/74 08/15/18 13:47 A+O X 3; neurologically intact; medically stable Assessment: Client has decided to continue with program. 08/15/18 13:48 Plan: Nursing staff and counselor notified of patient's decision.
--- NOTE | 2018-08-15 13:39 | PN ---
[facility] Progress Note Note: Patient is signing out against medical advice. Script for 30 days supply of Seroquel 50 mg po HS is electronically transmitted to [facility] at [facility] [place] [address]
[2018-08-15] MEDS: NICOTINE POLACRILEX 4 MG GUM BC PRN (17:33)
[2018-08-15 19:27] LABS: URINE APPEARANCE CLEAR; URINE BILIRUBIN NEGATIVE (NEGATIVE); URINE COLOR YELLOW; URINE GLUCOSE (UA) NEGATIVE (NEGATIVE); URINE KETONE NEGATIVE (NEGATIVE); URINE LEUK ESTERASE NEGATIVE (NEGATIVE); URINE NITRITE NEGATIVE (NEGATIVE); URINE PROTEIN NEGATIVE (NEGATIVE)
[2018-08-15] MEDS: QUEtiapine FUMARATE 50 MG TABLET PO SCH (21:14)
[2018-08-15] MEDS: THIAMINE HCL 100 MG TABLET (FP) PO SCH (21:14)
[2018-08-16 06:53] VITALS: BP 150/75; TEMP 97.9
[2018-08-16] MEDS: NICOTINE 21 MG/24 HOURS TOPICAL PATCH TD SCH (09:48)
[2018-08-16] MEDS: PRENATAL VITAMINS W/ FOLIC ACID TABLET (FP) PO SCH (09:48)
[2018-08-16] MEDS: BACITRACIN 0.9 GM PACKET TP SCH (09:48)
[2018-08-16] MEDS: PANTOPRAZOLE 20 MG TABLET (FP) PO SCH (09:48)
[2018-08-16] MEDS: amLODIPine BESYLATE 10 MG TABLET (FP) PO SCH (09:48)
[2018-08-16] MEDS: BUPRENORPHINE/NALOXONE 8 MG/2 MG FILM PACKET SL SCH (09:51)
[2018-08-16] MEDS: NICOTINE POLACRILEX 4 MG GUM BC PRN (09:52)
[2018-08-16] MEDS: ACETAMINOPHEN 325 MG TABLET (FP) PO PRN (11:34)
--- NOTE | 2018-08-16 13:09 | PN ---
[facility] Progress Note Note: PATIENT SEEN FOR REQUEST TO SIGN OUT AMA. PATIENT STATES HE NEEDS TO ATTEND TO PERSONAL MATTERS AND FOLLOW UP WITH PCP REGARDING HIS "LEG CONDITION". PATIENT ENCOURAGED TO COMPLETE REHAB AND DISCUSSED RISK FACTORS OF RELAPSE WITH SIGNING OUT AMA. PATIENT REFUSED TO STAY IN TREATMENT DESPITE INTERVENTIONS BY SOFTWARE SECURITY CONSULTANT AND NURSING STAFF. AFTERCARE ARRANGED AT [facility] TO CONTINUE SUBOXONE MAT AT [facility] FOR 08/20/18 AT 1PM. PATIENT SENT SUBOXONE PRESCRIPTION 8MG/2MG BID #10 FILMS UNTIL HE MEETS WITH OUTPATIENT PROVIDER. PATIENT IS MEDICALLY STABLE AND DENIES SI/HI. ENCOURAGE TO FOLLOW UP WITH PCP WITHIN 72 HOURS OF DISCHARGE TO CONTINUE MEDICAL MANAGEMENT. Vital Signs Temperature 97.9 F 08/16/18 06:52 Pulse Rate 80 08/16/18 06:52 Respiratory Rate 20 08/16/18 06:52 Blood Pressure 150/75 08/16/18 06:52 O2 Sat by Pulse Oximetry (%) Laboratory Tests 08/14/18 08/14/18 08/14/18 08:25 08:25 08:25 WBC 7.9 RBC 4.58 Hgb 13.4 Hct 40.4 MCV 88.4 MCH 29.2 MCHC 33.1 RDW 14.5 Plt Count 191 MPV 9.5 Sodium 141 Potassium 3.9 Chloride 105 Carbon Dioxide 28 Anion Gap 8 BUN 13 Creatinine 1.1 Creat Clearance w eGFR 75.32 Random Glucose 142 H Calcium 8.8 Total Bilirubin 0.4 AST 28 ALT 37 Alkaline Phosphatase 114 Total Protein 6.4 Albumin 3.4 Urine Color Urine Appearance Urine pH Ur Specific [place] Urine Protein Urine Glucose (UA) Urine Ketones Urine Blood Urine Nitrite Urine Bilirubin Urine Urobilinogen Ur Leukocyte Esterase RPR Titer Nonreactive 08/15/18 16:35 WBC RBC Hgb Hct MCV MCH MCHC RDW Plt Count MPV Sodium Potassium Chloride Carbon Dioxide Anion Gap BUN Creatinine Creat Clearance w eGFR Random Glucose Calcium Total Bilirubin AST ALT Alkaline Phosphatase Total Protein Albumin Urine Color Yellow Urine Appearance Clear Urine pH 5.0 Ur Specific [place] 1.014 Urine Protein Negative Urine Glucose (UA) Negative Urine Ketones Negative Urine Blood Negative Urine Nitrite Negative Urine Bilirubin Negative Urine Urobilinogen 1.0 Ur Leukocyte Esterase Negative RPR Titer Home Medications Medication Instructions Recorded Oxycodone HCl/Acetaminophen 1 each PO QID PRN 08/10/18 [Percocet 10-325 mg Tablet] Quetiapine Fumarate [Seroquel -] 50 mg PO HS #30 tablet 08/15/18 Albuterol Sulfate Inhaler - 2 inh PO Q4H #1 inhaler 08/16/18 [Ventolin HFA Inhaler -] Amlodipine Besylate [Norvasc -] 10 mg PO DAILY #14 tablet 08/16/18 Buprenorphine/Naloxone [Suboxone 8 mg SL BID 5 Days #10 film MDD 08/16/18 8Mg/2Mg Sl Film -] 16mg
== END 2018-08-16 12:45 | disposition left against medical advice (07) | DRG 770 ==
LOC: YASAS 17:08 → Y5N 08-14 00:06
PROVIDERS: ADMIT Neuromusculoskeletal Medicine & OMM; ATTEND Neuromusculoskeletal Medicine & OMM
PROC: HZ42ZZZ Group Counseling for Substance Abuse Treatment, Cognitive-Behavioral (ICD-10-PCS; principal; 2018-08-14)
DX: F11.20 Opioid dependence, uncomplicated (principal); F10.20 Alcohol dependence, uncomplicated; F14.20 Cocaine dependence, uncomplicated; F12.20 Cannabis dependence, uncomplicated; F17.210 Nicotine dependence, cigarettes, uncomplicated; F25.0 Schizoaffective disorder, bipolar type; F19.282 Other psychoactive substance dependence with psychoactive substance-induced sleep disorder; F41.8 Other specified anxiety disorders; F32.9 Major depressive disorder, single episode, unspecified; I10 Essential (primary) hypertension; J45.909 Unspecified asthma, uncomplicated; R60.0 Localized edema; Z91.5 Personal history of self-harm; S82.141D Displaced bicondylar fracture of right tibia, subsequent encounter for closed fracture with routine healing; X58.XXXD Exposure to other specified factors, subsequent encounter
CPT/HCPCS: 36415; 80053; 81003; 85027; 86593; 93005; 93010

== ENCOUNTER 2018-08-16 21:20 | Emergency (ER) | payer OTHER ==
[2018-08-16 21:54] VITALS: BP 162/89; PULSE 92; TEMP 98.9; BMI 39.5
--- NOTE | 2018-08-16 22:18 | PDOC ---
History of Present Illness - General Chief Complaint: Pain Stated Complaint: FALL Time Seen by Provider: 08/16/18 21:53 History Source: Patient Exam Limitations: No Limitations - History of Present Illness Initial Comments: 08/16/18 22:18 HISTORY OF PRESENT ILLNESS: This is a 37-year-old male past medical history of right tibial plateau fracture sustained approximately one month ago for which he follows up at [facility] who presents emergency Department with right knee and left ankle pain status post slip and fall in the rain today. Patient states he planted his left foot on wet concrete which caused him to slide and twisted his left ankle. He is unsure if it was an inversion or eversion injury but then subsequently fell forward striking his right knee on the front of a parked car. Patient is ambulatory in the emergency department. Patient is requesting a refill of his oxycodone. No recent travel or sick contacts. PAST MEDICAL HISTORY: see HPI SURGICAL HISTORY: Denies ALLERGIES: Pork, No known drug allergies REVIEW OF SYSTEMS General/Constitutional: Denies fever or chills. Denies weakness, weight change. HEENT: Denies change in vision. Denies ear pain or discharge. Denies sore throat. Cardiovascular: Denies chest pain or shortness of breath. Respiratory: Denies cough, wheezing, or hemoptysis. Gastrointestinal: Denies nausea, vomiting, diarrhea or constipation. Denies rectal bleeding. Genitourinary: Denies dysuria, frequency, or change in urination. Musculoskeletal: see HPI Skin and breasts: Denies rash or easy bruising. Neurologic: Denies headache, vertigo, loss of consciousness, or loss of sensation. Psychiatric: Denies depression or anxiety. Endocrine: Denies increased thirst. Denies abnormal weight change. Hematologic/Lymphatic: Denies anemia, easy bleeding, or history of blood clots. Allergic/Immunologic: Denies hives or skin allergy. Denies latex allergy. PHYSICAL EXAM General Appearance: Well-appearing, appropriately dressed. No apparent distress , no intoxication. Vascular Pulses: Dorsalis-Pedis (R): 2+, Dorsalis-Pedis (L): 2+ Musculoskeletal/Extremities: Normal inspection. FROM of all extremities, normal capillary refill. Pelvis Stable. No CVA tenderness. No tenderness to extremities, pedal edema, swelling, erythema or deformity. Integumentary: Appropriate color, dry, warm. No cyanosis, erythema, jaundice or rash Neurologic: burrer hand II-XII intact. Fully oriented, alert. Appropriate mood/affect. Motor strength 5/5. No appreciable EOM palsy, facial droop or sensory deficit. 08/16/18 22:30 Past History - Past Medical History Allergies/Adverse Reactions: Allergies Allergy/AdvReac Type Severity Reaction Status Date / Time Pork/Porcine Containing Allergy Severe Rash Verified 08/16/18 22:50 Products No Known Drug Allergies Allergy Verified 08/16/18 22:50 Home Medications: Ambulatory Orders Oxycodone HCl/Acetaminophen [Percocet 10-325 mg Tablet] 1 each PO QID PRN Quetiapine Fumarate [Seroquel -] 50 mg PO HS #30 tablet 08/15/18 Albuterol Sulfate Inhaler - [Ventolin HFA Inhaler -] 2 inh PO Q4H #1 inhaler 09/29 Amlodipine Besylate [Norvasc -] 10 mg PO DAILY #14 tablet 08/16/18 Buprenorphine/Naloxone [Suboxone 8Mg/2Mg Sl Film -] 8 mg SL BID 5 Days #10 film MDD 16mg 08/16/18 Anemia: No Asthma: Yes (on albuterol inhaler) Cancer: No Cardiac Disorders: No CVA: No COPD: No CHF: No Dementia: No Diabetes: No GI Disorders: No Disorders: No HTN: Yes (no med) Hypercholesterolemia: No Kidney Stones: No Liver Disease: No Psychiatric Problems: Yes (BIPOLAR; MIGRAINE;SCHIZOAFFECTIVEDISORDER) Seizures: No Thyroid Disease: No - Surgical History Abdominal Surgery: No Appendectomy: Yes (2005) Cardiac Surgery: No Cholecystectomy: No Gastric Stapling: No GI Surgery: No Lung Surgery: No Neurologic Surgery: No Orthopedic Surgery: No - Reproductive History Testicular Surgery: No - Immunization History Immunization Up to Date: Yes - Suicide/Smoking/Psychosocial Hx Smoking History: Current every day smoker Have you smoked in the past 12 months: Yes Number of Cigarettes Smoked Daily: 40 Cigars Per Day: 0 Information on smoking cessation initiated: Yes 'Breaking Loose' booklet given: 08/13/18 Hx Alcohol Use: Yes Drug/Substance Use Hx: Yes (smokes Heroin) Substance Use Type: Alcohol, Cocaine, Heroin, Marijuana Hx Substance Use Treatment: Yes (detox, rehab, Currently on Suboxone) *Physical Exam - Vital Signs Last Vital Signs Temp Pulse Resp BP Pulse Ox 98.9 F 92 H 20 162/89 99 08/16/18 21:48 08/16/18 21:48 08/16/18 21:48 08/16/18 21:48 08/16/18 21:48 Medical Decision Making - Medical Decision Making 08/16/18 22:30 A/P: 37-year-old male with right knee and left ankle pain status post slip and fall Patient was evaluated here on 08/10 for evaluation of knee pain and had questionable proximal tibia fracture. Patient was instructed to be nonweightbearing and to follow up with orthopedist. Patient presented to to [facility] for detox and was weightbearing at that time. Patient left detox AMA yesterday and subsequently fallen. As patient has reported new injury of the right knee I will re-x-ray the right knee and get an x-ray of the left ankle to rule out fractures. 08/17/18 00:35 X-ray of the right knee as read by me: No acute fractures or dislocations present. Lucency seen on previous x-ray 08/10 not visible on 2 views obtained today. 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 No fractures or dislocations of the bones of the ankle joint evident. Ankle mortise intact. Calcaneal heel Spurs noted at the Achilles tendon insertion site. Patient is requesting a dose of Toradol prior to discharge. 30 mg Toradol IM to be given now Discharge home to follow-up with orthopedist at [place] for old fracture. *DC/Admit/Observation/Transfer Diagnosis at time of Disposition: Knee pain, right Qualifiers: Chronicity: chronic Qualified Code(s): M25.561 - Pain in right knee Left ankle pain Qualifiers: Chronicity: acute Qualified Code(s): M25.572 - Pain in left ankle and joints of left foot - Discharge Dispostion Disposition: HOME Condition at time of disposition: Stable Decision to Admit order: No - Referrals - Patient Instructions Additional Instructions: Rest. You should not walk on your right knee. Elevate your legs to the level of the heart as often as possible. Follow-up with the orthopedist who was already treating you for the tibial plateau fracture. Return to the emergency department for any concerns. - Post Discharge Activity
[2018-08-17] MEDS ORDERED: KETOROLAC TROMETHAMINE 30 MG/1 ML VIAL IM ONE (00:33)
[2018-08-17] MEDS ORDERED: KETOROLAC TROMETHAMINE 30 MG/1 ML VIAL ONE (00:42)
== END 2018-08-17 00:42 | disposition home or self-care (01) ==
LOC: JER 21:20
PROC: 3E0233Z Introduction of Anti-inflammatory into Muscle, Percutaneous Approach (ICD-10-PCS; principal; 2018-08-16)
DX: M25.572 Pain in left ankle and joints of left foot (principal); M25.561 Pain in right knee; W01.198A Fall on same level from slipping, tripping and stumbling with subsequent striking against other object, initial encounter; Y93.89 Activity, other specified; Y92.480 Sidewalk as the place of occurrence of the external cause; Y99.8 Other external cause status; F17.210 Nicotine dependence, cigarettes, uncomplicated; Z86.59 Personal history of other mental and behavioral disorders; F19.20 Other psychoactive substance dependence, uncomplicated
CPT/HCPCS: 73560-TC-RT-FY; 73610-TC-LT-FY; 73630-TC-LT; 96372; 99282-25

== ENCOUNTER 2018-12-19 08:37 | Inpatient (IN) | payer OTHER ==
[2018-12-19 09:31] VITALS: BMI 38.7
--- NOTE | 2018-12-19 10:27 | HP ---
CIWA Score Nausea/Vomitin Muscle Tremors: 2 Anxiety: 3 Agitation: 3 Paroxysmal Sweats: 1-Minimal Palms Moist Orientation: 0-Oriented Tacttile Disturbances: 1-Very Mild Itch/Numbness Auditory Disturbances: 0-None Visual Disturbances: 0-None Headache: 2-Mild CIWA-Ar Total Score: 14 - Admission Criteria OASAS Guidelines: Admission for Medically Managed Detox: Requires at least one of the followin. CIWA greater than 12 2. Seizures within the past 24 hours 3. Delirium tremens within the past 24 hours 4. Hallucinations within the past 24 hours 5. Acute intervention needed for co occurring medical disorder 6. Acute intervention needed for co occurring psychiatric disorder 7. Severe withdrawal that cannot be handled at a lower level of care (continued vomiting, continued diarrhea, abnormal vital signs) requiring intravenous medication and/or fluids 8. Admission ROS [facility] Chief Complaint: i need help to stop drinking alcohol,cocaine,marijuana,heroin abused Allergies/Adverse Reactions: Allergies Allergy/AdvReac Type Severity Reaction Status Date / Time Pork/Porcine Containing Allergy Severe Rash Verified 12/19/18 09:25 Products No Known Drug Allergies Allergy Verified 12/19/18 09:25 History of Present Illness: this 38 years old male with alcohol,cocaine,marijuana dependence,heroin abused, used to be on suboxone, i stop showed last 08/23/18 syncope last yesterday denied seizure longest sobriety seen at [facility] last night last admission at [facility] from 06/24/18 06/26/18 not completed schizoaffective disorder stated edie help to stop drinking history of asthma nicotine dependence 1 pack/day,did not want nicotine replacement Exam Limitations: No Limitations - Ebola screening Have you traveled outside of the country in the last 21 days: No Have you had contact with anyone from an Ebola affected area: No - Review of Systems Constitutional: Chills, Loss of Appetite, Malaise, Night Sweats, Changes in sleep, Weakness EENT: reports: Tearing, Nose Congestion Respiratory: reports: No Symptoms reported, Other (asthma) Cardiac: reports: No Symptoms Reported GI: reports: Nausea, Poor Appetite, Abdominal cramping : reports: No Symptoms Reported Musculoskeletal: reports: Back Pain, Muscle Pain Integumentary: reports: Dryness Neuro: reports: Headache, Tremors Endocrine: reports: No Symptoms Reported Hematology: reports: No Symptoms Reported Psychiatric: reports: No Sypmtoms Reported, Judgement Intact, Mood/Affect Appropiate, Orientated x3, other (schizoaffective disorder) Patient History - Patient Medical History Hx Anemia: No Hx Asthma: Yes (on albuterol inhaler) Hx Chronic Obstructive Pulmonary Disease (COPD): No Hx Cancer: No Hx Cardiac Disorders: No Hx Congestive Heart Failure: No Hx Hypertension: Yes (no med) Hx Hypercholesterolemia: No Hx Pacemaker: No HX Cerebrovascular Accident: No Hx Seizures: No Hx Dementia: No Hx Diabetes: No Hx Gastrointestinal Disorders: No Hx Liver Disease: No Hx Genitourinary Disorders: No Hx Sexually Transmitted Disorders: No Hx Renal Disease (ESRD): No Hx Thyroid Disease: No Hx Human Immunodeficiency Virus (HIV): No (last 07/02 negative) Hx Hepatitis C: No Hx Depression: Yes (AND ANXIETY) Hx Suicide Attempt: Yes (02/28- OVERDOSE. ADMITTED TO [facility].) Hx Bipolar Disorder: No Hx Schizophrenia: Yes Other Medical History: no suicidal,no homical - Patient Surgical History Past Surgical History: Yes Hx Neurologic Surgery: No Hx Cataract Extraction: No Hx Cardiac Surgery: No Hx Lung Surgery: No Hx Breast Surgery: No Hx Breast Biopsy: No Hx Abdominal Surgery: No Hx Appendectomy: Yes (2005) Hx Cholecystectomy: No Hx Genitourinary Surgery: No Hx Section: No Hx Orthopedic Surgery: No Hx Hysterectomy: No Anesthesia Reaction: No - PPD History Previous Implant?: Yes Documented Results: Negative w/proof Implanted On Prior [facility] Admission?: Yes Date: 06/27/18 Results: 0 mm. PPD to be Administered?: No - Smoking Cessation Smoking history: Current every day smoker Have you smoked in the past 12 months: Yes Aproximately how many cigarettes per day: 20 Cigars Per Day: 0 Hx Chewing Tobacco Use: No Initiated information on smoking cessation: Yes 'Breaking Loose' booklet given: 12/19/18 - Substance & Tx. History Hx Alcohol Use: Yes Hx Substance Use: Yes Substance Use Type: Alcohol, Cocaine, Heroin, Marijuana Hx Substance Use Treatment: Yes ([facility] 06/24/18 to 06/26/18 not completed,left due to family emergency) - Substances abused Heroin Other (specify): SNIFF Substance route: Inhalation Frequency: Daily Amount used: 1 1/2 BUNDLE Age of first use: 17 Date of last use: 12/19/18 Alcohol Substance route: Oral Frequency: Daily Amount used: 1/5 liquor daily Age of first use: 16 Date of last use: 12/19/18 Marijuana/Hashish Substance route: Smoking Frequency: Daily Amount used: $20 Age of first use: 14 Date of last use: 12/18/18 Cocaine Substance route: Smoking Frequency: Daily Amount used: 8 ball 50$ Age of first use: 13 Date of last use: 12/18/18 Family Disease History - Family Disease History Family Disease History: Diabetes: Father, Mother Admission Physical Exam [facility] - Vital Signs Vital Signs: Vital Signs - 24 hr 12/19/18 09:25 Temperature 96.5 F L Pulse Rate 97 H Respiratory 18 Rate Blood Pressure 161/93 - Physical General Appearance: Yes: Moderate Distress, Tremorous, Irritable, Sweating, Anxious HEENTM: Yes: Normal ENT Inspection, RAMON, Pharynx Normal Respiratory: Yes: Lungs Clear, Normal Breath Sounds, No Respiratory Distress Neck: Yes: Within Normal Limits, Supple, Trachea in good position Breast: Yes: Within Normal Limits Abdominal: Yes: Within Normal Limits, Normal Bowel Sounds, Non Tender, Flat, Soft, Surgical Scar Genitourinary: Yes: Within Normal Limits Back: Yes: Muscle Spasm Musculoskeletal: Yes: Back pain, Joint Stiffness, Muscle Pain Extremities: Yes: Tremors 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: 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 NML intact, Fully Oriented, Alert, Motor Strength 5/5 Integumentary: Yes: Dry Lymphatic: Yes: Within Normal Limits - Diagnostic (1) Alcohol dependence with uncomplicated withdrawal Current Visit: Yes Status: Acute (2) Heroin abuse Current Visit: Yes Status: Acute (3) Cannabis dependence Current Visit: Yes Status: Acute (4) Cocaine dependence Current Visit: Yes Status: Acute Qualifiers: Substance use status: uncomplicated Qualified Code(s): F14.20 - Cocaine dependence, uncomplicated (5) HTN (hypertension) Current Visit: No Status: Chronic Qualifiers: Hypertension type: unspecified Qualified Code(s): I10 - Essential (primary ) hypertension Comment: Not on medication (6) History of asthma Current Visit: No Status: Chronic (7) Syncope Current Visit: Yes Status: Acute (8) Obese Current Visit: Yes Status: Acute Cleared for Admission [facility] - Detox or Rehab [facility] Level of Care: Medically Managed (urine showed negative for opiate,patient is awared he will not get methadone) Detox Regimen/Protocol: Librium Breathalyzer - Breathalyzer Breathalyzer: 0 Urine Drug Screen - Test Device Lot number: [id number] Expiration date: 09/10/20 - Control Is test valid?: Yes - Results Drug screen NEGATIVE: No Urine drug screen results: THC-Marijuana, AGUSTINA-Cocaine, BAR-Barbiturates, BZO- Benzodiazepines Inpatient Rehab Admission - Rehab Decision to Admit Inpatient rehab admission?: No
[2018-12-19] MEDS ORDERED: chlordiazePOXIDE HCL 25 MG CAPSULE PO PRN (10:43)
[2018-12-19] MEDS ORDERED: BISMUTH SUBSALICYLATE 262 MG/15 ML BTL PO PRN (10:43)
[2018-12-19] MEDS ORDERED: hydrOXYzine HCL 25 MG TABLET (FP) PO PRN (10:43)
[2018-12-19] MEDS ORDERED: ACETAMINOPHEN 325 MG TABLET (FP) PO PRN ×2 (10:43)
[2018-12-19] MEDS ORDERED: MAGNESIUM CITRATE 300 ML BOTTLE PO PRN (10:43)
[2018-12-19] MEDS ORDERED: IBUPROFEN 400 MG TABLET (FP) PO PRN (10:43)
[2018-12-19] MEDS ORDERED: MENTHOL/PHENOL 1 EACH UD MM PRN (10:43)
[2018-12-19] MEDS ORDERED: MAG HYDROX/AL HYDROX/SIMETH 30 ML UNIT-DOSE CUP PO PRN (10:43)
[2018-12-19] MEDS ORDERED: MAGNESIUM HYDROX 2400MG/30ML ORAL SUSPENSION 30 ML CUP PO PRN (10:43)
[2018-12-19] MEDS ORDERED: METHOCARBAMOL 500 MG TABLET PO PRN (10:43)
[2018-12-19] MEDS ORDERED: MELATONIN 5 MG TABLETS PO PRN (10:43)
[2018-12-19] MEDS ORDERED: ALBUTEROL SO4 8 GM HFA INHALER IH PRN (10:49)
--- NOTE | 2018-12-19 15:28 | CONSULT ---
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 This is one of multiple admissions for patient. Patient admitted to for alcohol, cocaine, and opiate dependence. Substance Abuse History: Smoking Cessation. Smoking history: Current every day smoker. Have you smoked in the past 12 months: Yes. Aproximately how many cigarettes per day: 20. Cigars Per Day: 0. Hx Chewing Tobacco Use: No. Initiated information on smoking cessation: Yes. 'Breaking Loose' booklet given : 12/19/18. - Substance & Tx. History. Hx Alcohol Use: Yes. Hx Substance Use : Yes. Substance Use Type: Alcohol, Cocaine, Heroin, Marijuana. Hx Substance Use Treatment: Yes ([facility] 06/24/18 to 06/26/18 not completed,left due to family emergency). - Substances abused. Heroin. Other (specify): SNIFF. Substance route: Inhalation. Frequency: Daily. Amount used: 1 1/2 BUNDLE. Age of first use: 17. Date of last use: 12/19/18. Alcohol. Substance route : Oral. Frequency: Daily. Amount used: 1/5 liquor daily. Age of first use: 16. Date of last use: 12/19/18. Marijuana/Hashish. Substance route: Smoking. Frequency: Daily. Amount used: $20. Age of first use: 14. Date of last use: 12/18/18. Cocaine. Substance route: Smoking. Frequency: Daily. Amount used: 8 ball 50$. Age of first use: 13. Date of last use: 12/18/18 Medical History: Asthma, hypertension Psychiatric History: Patient reports history of one psychiatric hospitalization in 2017 after exhibiting auditory hallucinations secondary to drug use. States he was admitted to [facility] and was prescribed psychotropic medications. He reports past history of outpatient psychiatric care at [facility] and states that he was prescribed seroquel 200mg + Buspar (unknown dose). Diagnosis of schizoaffective disorder. Mr. Petersen reports history of three suicide attempts, most recently one year ago via drug overdose. As per previous notes patient has been treated with invega sustenna. At present patient denies auditory/visual hallucinations , suicidal/homicidal ideation. Physical/Sexual Abuse/Trauma History: denies. Mental Status Exam - Mental Status Exam Alert and Oriented to: Time, Place, Person Cognitive Function: Good Patient Appearance: Well Groomed Mood: Withdrawn Affect: Mood Congruent Patient Behavior: Cooperative Speech Pattern: Appropriate Voice Loudness: Normal Thought Process: Goal Oriented Thought Disorder: Not Present Hallucinations: Denies Suicidal Ideation: Denies Homicidal Ideation: Denies Insight/Judgement: Poor Sleep: Poorly Appetite: Fair Muscle strength/Tone: Normal Gait/Station: Normal Psychiatric Findings - Problem List ([place] 1, 2,3) (1) Heroin abuse Current Visit: Yes Status: Acute (2) Alcohol dependence with uncomplicated withdrawal Current Visit: Yes Status: Acute (3) Cannabis dependence Current Visit: Yes Status: Acute (4) Cocaine dependence Current Visit: Yes Status: Acute Qualifiers: Substance use status: uncomplicated Qualified Code(s): F14.20 - Cocaine dependence, uncomplicated (5) Substance induced mood disorder Current Visit: Yes Status: Acute (6) Schizoaffective disorder Current Visit: Yes Status: Chronic Qualifiers: Schizoaffective disorder type: bipolar Qualified Code(s): F25.0 - Schizoaffective disorder, bipolar type Comment: Self-report. - Initial Treatment Plan Initial Treatment Plan: Psychoeducation provided. Detoxification in progress. Will order Seroquel 100mg HS. Benefits and side effects discussed. Verbal consent given.
[2018-12-19 15:55] LABS: HEMATOCRIT 39.6 % (35.4-49); HEMOGLOBIN 13.4 GM/dL (11.7-16.9); MCH 29.9 pg (25.7-33.7); MCHC 33.9 g/dl (32.0-35.9); MEAN CELL VOLUME 88.3 fl (80-96); MEAN PLT VOLUME 9.1 fl (7.5-11.1); PLATELET COUNT 244 K/MM3 (134-434); RBC 4.49 M/mm3 (4.00-5.60); RDW 13.8 % (11.9-15.9); WHITE BLOOD COUNT 9.4 K/mm3 (4.0-10.0)
[2018-12-19 16:07] LABS: BILIRUBIN,TOTAL 0.2 mg/dL (0.2-1); BLOOD UREA NITROGEN 14.4 mg/dL (7-18); CALCIUM 9.6 mg/dL (8.5-10.1); CREATININE 1.1 mg/dL (0.55-1.3); TOT PROT 7.4 g/dl (6.4-8.2)
[2018-12-19] MEDS: chlordiazePOXIDE HCL 25 MG CAPSULE PO SCH ×2 (16:59→22:11)
[2018-12-19] MEDS ORDERED: QUEtiapine FUMARATE 50 MG TABLET PO SCH (22:00)
[2018-12-19] MEDS: THIAMINE HCL 100 MG TABLET (FP) PO SCH (22:11)
[2018-12-19] MEDS: QUEtiapine FUMARATE 100 MG TABLET (FP) PO SCH (22:11)
[2018-12-20] MEDS: chlordiazePOXIDE HCL 25 MG CAPSULE PO SCH ×4 (06:52→22:09)
[2018-12-20] MEDS: PRENATAL VITAMINS W/ FOLIC ACID TABLET (FP) PO SCH (11:10)
[2018-12-20] MEDS: amLODIPine BESYLATE 10 MG TABLET (FP) PO SCH (11:10)
--- NOTE | 2018-12-20 13:17 | PN ---
[facility] CIWA - CIWA Score Nausea/Vomitin-No Nausea/No Vomiting Muscle Tremors: 2 Anxiety: 4-Mod. Anxious/Guarded Agitation: 0-Normal Activity Paroxysmal Sweats: No Perspiration Orientation: 2-Disoriented Date<2 days Tacttile Disturbances: 0-None Auditory Disturbances: 1-Very Mild Visual Disturbances: 2-Mild Sensitivity Headache: 0-None Present CIWA-Ar Total Score: 11 BHS Progress Note (SOAP) Subjective: Anxious, Tremors, Fatigue. Objective: PATIENT A & O X 2 (UNCERTAIN ABOUT CURRENT DAY/DATE). PATIENT OBSERVED AMBULATING ON DETOX UNIT UNASSISTED. IN NO ACUTE DISTRESS. 12/20/18 13:16 Vital Signs Temperature 98.3 F 12/20/18 09:07 Pulse Rate 59 L 12/20/18 09:07 Respiratory Rate 18 12/20/18 09:07 Blood Pressure 121/67 12/20/18 09:07 O2 Sat by Pulse Oximetry (%) Laboratory Tests 12/19/18 12/19/18 12/19/18 11:05 11:05 11:05 WBC 9.4 RBC 4.49 Hgb 13.4 Hct 39.6 MCV 88.3 MCH 29.9 MCHC 33.9 RDW 13.8 Plt Count 244 D MPV 9.1 Sodium 141 Potassium 4.0 Chloride 106 Carbon Dioxide 29 Anion Gap 6 L BUN 14.4 Creatinine 1.1 Est GFR (CKD-EPI)AfAm 98.18 Est GFR (CKD-EPI)NonAf 84.71 Random Glucose 95 Calcium 9.6 Total Bilirubin 0.2 AST 40 H ALT 32 Alkaline Phosphatase 112 Total Protein 7.4 Albumin 4.0 RPR Titer Nonreactive HIV 1&2 Antibody Screen HIV P24 Antigen 12/19/18 11:05 WBC RBC Hgb Hct MCV MCH MCHC RDW Plt Count MPV Sodium Potassium Chloride Carbon Dioxide Anion Gap BUN Creatinine Est GFR (CKD-EPI)AfAm Est GFR (CKD-EPI)NonAf Random Glucose Calcium Total Bilirubin AST ALT Alkaline Phosphatase Total Protein Albumin RPR Titer HIV 1&2 Antibody Screen Cancelled HIV P24 Antigen Cancelled LABS NOTED. RESULT OF DETOX ADMISSION HIV AB TEST PENDING. 12/20/18 13:22 Assessment: 12/20/18 13:16 WITHDRAWAL SYMPTOMS. Plan: CONTINUE DETOX.
[2018-12-20] MEDS: QUEtiapine FUMARATE 100 MG TABLET (FP) PO SCH (22:08)
[2018-12-20] MEDS: THIAMINE HCL 100 MG TABLET (FP) PO SCH (22:08)
[2018-12-21] MEDS: chlordiazePOXIDE HCL 25 MG CAPSULE PO SCH ×4 (05:33→22:19)
--- NOTE | 2018-12-21 10:27 | PN ---
S CIWA - CIWA Score Nausea/Vomitin-No Nausea/No Vomiting Muscle Tremors: 2 Anxiety: 3 Agitation: 2 Paroxysmal Sweats: 3 Orientation: 0-Oriented Tacttile Disturbances: 0-None Auditory Disturbances: 0-None Visual Disturbances: 0-None Headache: 0-None Present CIWA-Ar Total Score: 10 S Progress Note (SOAP) Subjective: c/o sweats, anxiety, and shakes. Objective: 12/21/18 10:26 Vital Signs 12/21/18 12/21/18 12/21/18 03:30 06:27 09:18 Temperature 98.6 F 97.9 F Pulse Rate 73 110 H Respiratory 18 16 20 Rate Blood Pressure 114/66 154/100 Lab Results WBC 9.4 K/mm3 (4.0-10.0) 12/19/18 11:05 RBC 4.49 M/mm3 (4.00-5.60) 12/19/18 11:05 Hgb 13.4 GM/dL (11.7-16.9) 12/19/18 11:05 Hct 39.6 % (35.4-49) 12/19/18 11:05 MCV 88.3 fl (80-96) 12/19/18 11:05 MCHC 33.9 g/dl (32.0-35.9) 12/19/18 11:05 RDW 13.8 % (11.9-15.9) 12/19/18 11:05 Plt Count 244 K/MM3 (134-434) D 12/19/18 11:05 Sodium 141 mmol/L (136-145) 12/19/18 11:05 Potassium 4.0 mmol/L (3.5-5.1) 12/19/18 11:05 Chloride 106 mmol/L (98-107) 12/19/18 11:05 Carbon Dioxide 29 mmol/L (21-32) 12/19/18 11:05 Anion Gap 6 MMOL/L (8-16) L 12/19/18 11:05 BUN 14.4 mg/dL (7-18) 12/19/18 11:05 Creatinine 1.1 mg/dL (0.55-1.3) 12/19/18 11:05 Random Glucose 95 mg/dL (74-106) 12/19/18 11:05 Calcium 9.6 mg/dL (8.5-10.1) 12/19/18 11:05 Labs noted. Assessment: 12/21/18 10:26 AOX3, in no acute respiratory distress Full ROM, ambulating in the unit. withdrawal symptoms. Plan: continue detox.
[2018-12-21] MEDS: PRENATAL VITAMINS W/ FOLIC ACID TABLET (FP) PO SCH (10:38)
[2018-12-21] MEDS: amLODIPine BESYLATE 10 MG TABLET (FP) PO SCH (10:38)
[2018-12-21] MEDS: THIAMINE HCL 100 MG TABLET (FP) PO SCH (22:18)
[2018-12-21] MEDS: QUEtiapine FUMARATE 100 MG TABLET (FP) PO SCH (22:19)
[2018-12-22] MEDS ORDERED: chlordiazePOXIDE HCL 10 MG CAPSULE PO PRN
[2018-12-22] MEDS: chlordiazePOXIDE HCL 10 MG CAPSULE PO SCH ×4 (06:13→22:15)
--- NOTE | 2018-12-22 09:51 | PN ---
S CIWA - CIWA Score Nausea/Vomitin-No Nausea/No Vomiting Muscle Tremors: 2 Anxiety: 1-Mildly Anxious Agitation: 2 Paroxysmal Sweats: 1-Minimal Palms Moist Orientation: 0-Oriented Tacttile Disturbances: 0-None Auditory Disturbances: 0-None Visual Disturbances: 0-None Headache: 0-None Present CIWA-Ar Total Score: 6 BHS Progress Note (SOAP) Subjective: 38 years old male admitted on 12/19/18 for acute alcohol withdrawal sx management doing well with librium detox protocol medical history of hypertension and asthma S1S2 denies dizziness no chest pain clear lung bilaterally no shortness of breathe resting on bed less tremor mild anxiousness Objective: 12/22/18 09:51 Vital Signs Temperature 98.4 F 12/22/18 09:27 Pulse Rate 73 12/22/18 09:27 Respiratory Rate 18 12/22/18 09:27 Blood Pressure 111/67 12/22/18 09:27 O2 Sat by Pulse Oximetry (%) Laboratory Last Values WBC 9.4 K/mm3 (4.0-10.0) 12/19/18 11:05 RBC 4.49 M/mm3 (4.00-5.60) 12/19/18 11:05 Hgb 13.4 GM/dL (11.7-16.9) 12/19/18 11:05 Hct 39.6 % (35.4-49) 12/19/18 11:05 MCV 88.3 fl (80-96) 12/19/18 11:05 MCH 29.9 pg (25.7-33.7) 12/19/18 11:05 MCHC 33.9 g/dl (32.0-35.9) 12/19/18 11:05 RDW 13.8 % (11.9-15.9) 12/19/18 11:05 Plt Count 244 K/MM3 (134-434) D 12/19/18 11:05 MPV 9.1 fl (7.5-11.1) 12/19/18 11:05 Sodium 141 mmol/L (136-145) 12/19/18 11:05 Potassium 4.0 mmol/L (3.5-5.1) 12/19/18 11:05 Chloride 106 mmol/L (98-107) 12/19/18 11:05 Carbon Dioxide 29 mmol/L (21-32) 12/19/18 11:05 Anion Gap 6 MMOL/L (8-16) L 12/19/18 11:05 BUN 14.4 mg/dL (7-18) 12/19/18 11:05 Creatinine 1.1 mg/dL (0.55-1.3) 12/19/18 11:05 Est GFR (CKD-EPI)AfAm 98.18 12/19/18 11:05 Est GFR (CKD-EPI)NonAf 84.71 12/19/18 11:05 Random Glucose 95 mg/dL (74-106) 12/19/18 11:05 Calcium 9.6 mg/dL (8.5-10.1) 12/19/18 11:05 Total Bilirubin 0.2 mg/dL (0.2-1) 12/19/18 11:05 AST 40 U/L (15-37) H 12/19/18 11:05 ALT 32 U/L (13-61) 12/19/18 11:05 Alkaline Phosphatase 112 U/L (45-117) 12/19/18 11:05 Total Protein 7.4 g/dl (6.4-8.2) 12/19/18 11:05 Albumin 4.0 g/dl (3.4-5.0) 12/19/18 11:05 RPR Titer Nonreactive (NONREACTIVE) 12/19/18 11:05 HIV 1&2 Ag/Ab, 4th Gen Non reactive (Non Reactive) 12/19/18 16:00 HIV 1&2 Antibody Screen Cancelled 12/19/18 11:05 HIV P24 Antigen Cancelled 12/19/18 11:05 lab noted Assessment: 12/22/18 09:53 alcohol withdrawal sx Plan: continue librium detox protocol
[2018-12-22] MEDS: amLODIPine BESYLATE 10 MG TABLET (FP) PO SCH (10:59)
[2018-12-22] MEDS: PRENATAL VITAMINS W/ FOLIC ACID TABLET (FP) PO SCH (10:59)
[2018-12-22] MEDS: THIAMINE HCL 100 MG TABLET (FP) PO SCH (22:15)
[2018-12-22] MEDS: QUEtiapine FUMARATE 100 MG TABLET (FP) PO SCH (22:15)
[2018-12-23] MEDS ORDERED: chlordiazePOXIDE HCL 10 MG CAPSULE PO SCH (05:00)
[2018-12-23 05:59] VITALS: BP 122/77; PULSE 84; TEMP 97
--- NOTE | 2018-12-23 14:18 | DS ---
[facility] Detox Discharge Summary Admission Date: 12/19/18 Discharge Date: 12/23/18 - History Present History: Alcohol Dependence Additional Comments: 38 years old male admitted on 12/19/18 for acute alcohol withdrawal sx management doing well with librium detox regimen prefers to be discharged one day early to begin alcohol recovery process feeling better ciwa = 3 denies pain no wheezing no shortness of breathe good dietary pattern no polyuria no dizziness denies suicidal ideation Pertinent Past History: asthma hypertension - Physical Exam Results Vital Signs: Vital Signs Temperature 97 F L 12/23/18 05:58 Pulse Rate 84 12/23/18 05:58 Respiratory Rate 18 12/23/18 05:58 Blood Pressure 122/77 12/23/18 05:58 O2 Sat by Pulse Oximetry (%) Pertinent Admission Physical Exam Findings: alcohol withdrawal sx Laboratory Last Values WBC 9.4 K/mm3 (4.0-10.0) 12/19/18 11:05 RBC 4.49 M/mm3 (4.00-5.60) 12/19/18 11:05 Hgb 13.4 GM/dL (11.7-16.9) 12/19/18 11:05 Hct 39.6 % (35.4-49) 12/19/18 11:05 MCV 88.3 fl (80-96) 12/19/18 11:05 MCH 29.9 pg (25.7-33.7) 12/19/18 11:05 MCHC 33.9 g/dl (32.0-35.9) 12/19/18 11:05 RDW 13.8 % (11.9-15.9) 12/19/18 11:05 Plt Count 244 K/MM3 (134-434) D 12/19/18 11:05 MPV 9.1 fl (7.5-11.1) 12/19/18 11:05 Sodium 141 mmol/L (136-145) 12/19/18 11:05 Potassium 4.0 mmol/L (3.5-5.1) 12/19/18 11:05 Chloride 106 mmol/L (98-107) 12/19/18 11:05 Carbon Dioxide 29 mmol/L (21-32) 12/19/18 11:05 Anion Gap 6 MMOL/L (8-16) L 12/19/18 11:05 BUN 14.4 mg/dL (7-18) 12/19/18 11:05 Creatinine 1.1 mg/dL (0.55-1.3) 12/19/18 11:05 Est GFR (CKD-EPI)AfAm 98.18 12/19/18 11:05 Est GFR (CKD-EPI)NonAf 84.71 12/19/18 11:05 Random Glucose 95 mg/dL (74-106) 12/19/18 11:05 Calcium 9.6 mg/dL (8.5-10.1) 12/19/18 11:05 Total Bilirubin 0.2 mg/dL (0.2-1) 12/19/18 11:05 AST 40 U/L (15-37) H 12/19/18 11:05 ALT 32 U/L (13-61) 12/19/18 11:05 Alkaline Phosphatase 112 U/L (45-117) 12/19/18 11:05 Total Protein 7.4 g/dl (6.4-8.2) 12/19/18 11:05 Albumin 4.0 g/dl (3.4-5.0) 12/19/18 11:05 RPR Titer Nonreactive (NONREACTIVE) 12/19/18 11:05 HIV 1&2 Ag/Ab, 4th Gen Non reactive (Non Reactive) 12/19/18 16:00 HIV 1&2 Antibody Screen Cancelled 12/19/18 11:05 HIV P24 Antigen Cancelled 12/19/18 11:05 lab noted - Treatment Hospital Course: Detox Protocol Followed, Detoxed Safely, Responded well, Discharged Condition Good, Rehab Referral Accepted Patient has Accepted a Rehab Referral to: new focus - Medication Discharge Medications: Ambulatory Orders Oxycodone HCl/Acetaminophen [Percocet 10-325 mg Tablet] 1 each PO QID PRN Quetiapine Fumarate [Seroquel -] 50 mg PO HS #30 tablet 08/15/18 Albuterol Sulfate Inhaler - [Ventolin HFA Inhaler -] 2 inh PO Q4H #1 inhaler 09/29 Amlodipine Besylate [Norvasc -] 10 mg PO DAILY #14 tablet 08/16/18 Buprenorphine/Naloxone [Suboxone 8Mg/2Mg Sl Film -] 8 mg SL BID 5 Days #10 film MDD 16mg 08/16/18 - Diagnosis (1) Alcohol dependence with uncomplicated withdrawal Status: Acute (2) Substance induced mood disorder Status: Suspected (3) Asthma Status: Chronic Qualifiers: Asthma severity: mild Asthma persistence: intermittent Asthma complication type: with status asthmaticus Qualified Code(s): J45.22 - Mild intermittent asthma with status asthmaticus (4) HTN (hypertension) Status: Chronic Qualifiers: Hypertension type: essential hypertension Qualified Code(s): I10 - Essential (primary) hypertension (5) Nicotine dependence Status: Acute Qualifiers: Nicotine product type: cigarettes Substance use status: in withdrawal Qualified Code(s): F17.213 - Nicotine dependence, cigarettes, with withdrawal - AMA Did Patient Leave Against Medical Advice: No CIWA Score - CIWA Score Nausea/Vomitin-No Nausea/No Vomiting Muscle Tremors: 1-None Visible, but [place] Anxiety: 1-Mildly Anxious Agitation: 1-Slight > Activity Paroxysmal Sweats: No Perspiration Orientation: 0-Oriented Tacttile Disturbances: 0-None Auditory Disturbances: 0-None Visual Disturbances: 0-None Headache: 0-None Present CIWA-Ar Total Score: 3
[2018-12-24] MEDS ORDERED: chlordiazePOXIDE HCL 10 MG CAPSULE PO ONE (05:00)
== END 2018-12-23 09:06 | disposition home or self-care (01) | DRG 773 ==
LOC: YASAS 08:37 → Y3N 10:46
PROVIDERS: ADMIT Surgery; ATTEND Surgery
PROC: HZ2ZZZZ Detoxification Services for Substance Abuse Treatment (ICD-10-PCS; principal; 2018-12-19)
DX: F10.230 Alcohol dependence with withdrawal, uncomplicated (principal); F11.10 Opioid abuse, uncomplicated; F14.20 Cocaine dependence, uncomplicated; F12.20 Cannabis dependence, uncomplicated; F17.213 Nicotine dependence, cigarettes, with withdrawal; F19.24 Other psychoactive substance dependence with psychoactive substance-induced mood disorder; F25.9 Schizoaffective disorder, unspecified; I10 Essential (primary) hypertension; J45.22 Mild intermittent asthma with status asthmaticus; E66.9 Obesity, unspecified; Z68.38 Body mass index [BMI] 38.0-38.9, adult
CPT/HCPCS: 36415; 80053; 85027; 86593; 87389

== ENCOUNTER 2019-01-07 19:33 | Emergency (ER) | payer OTHER ==
--- NOTE | 2019-01-07 19:43 | PDOC ---
Rapid Medical Evaluation Time Seen by Provider: 01/07/19 19:39 Medical Evaluation: Allergies Allergy/AdvReac Type Severity Reaction Status Date / Time Pork/Porcine Containing Allergy Severe Rash Verified 12/19/18 09:25 Products No Known Drug Allergies Allergy Verified 12/19/18 09:25 01/07/19 19:39 Pt with PMH of polysubstance abuse, presents to the ER for weakness and R shoulder pain. Pt admits to smoking some laced weed earlier today. States he was playing basketball when he felt off balance and fell on the R shoulder. Exam: NAD. FROM of the R arm Orders: labs, urine, Shoulder x-ray Pt to proceed to the ER for further evaluation Discharge Disposition - Diagnosis Poly-drug misuser - Referrals - Patient Instructions - Post Discharge Activity
[2019-01-07 19:49] VITALS: BP 147/77; PULSE 116; TEMP 98.4; BMI 33.3
[2019-01-07 20:28] LABS: URINE APPEARANCE CLOUDY; URINE BILIRUBIN NEGATIVE (NEGATIVE); URINE COLOR YELLOW; URINE GLUCOSE (UA) NEGATIVE (NEGATIVE); URINE KETONE TRACE (NEGATIVE); URINE LEUK ESTERASE NEGATIVE (NEGATIVE); URINE NITRITE NEGATIVE (NEGATIVE); URINE PROTEIN TRACE (NEGATIVE)
[2019-01-07 20:44] LABS: COCAINE, UR NEGATIVE ng/ml (CUTOFF=300); METHADONE, UR NEGATIVE ng/ml (CUTOFF=300); OPIATES, URI NEGATIVE ng/ml (CUTOFF=300); PHENCYCLIDINE,URINE NEGATIVE ng/ml (CUTOFF=25); URINE AMPHETAMINES NEGATIVE ng/ml (CUTOFF=500); URINE BARBITURATES NEGATIVE ng/ml (CUTOFF=200); URINE BENZODIAZEPINES NEGATIVE ng/ml (CUTOFF=200)
--- NOTE | 2019-01-07 20:49 | PDOC ---
History of Present Illness - General Chief Complaint: Injury Stated Complaint: PAIN Time Seen by Provider: 01/07/19 19:39 Past History - Past Medical History Allergies/Adverse Reactions: Allergies Allergy/AdvReac Type Severity Reaction Status Date / Time Pork/Porcine Containing Allergy Severe Rash Verified 01/07/19 19:42 Products No Known Drug Allergies Allergy Verified 01/07/19 19:42 Home Medications: Ambulatory Orders Oxycodone HCl/Acetaminophen [Percocet 10-325 mg Tablet] 1 each PO QID PRN Quetiapine Fumarate [Seroquel -] 50 mg PO HS #30 tablet 08/15/18 Albuterol Sulfate Inhaler - [Ventolin HFA Inhaler -] 2 inh PO Q4H #1 inhaler 09/29 Amlodipine Besylate [Norvasc -] 10 mg PO DAILY #14 tablet 08/16/18 Buprenorphine/Naloxone [Suboxone 8Mg/2Mg Sl Film -] 8 mg SL BID 5 Days #10 film MDD 16mg 08/16/18 Anemia: No Asthma: Yes (on albuterol inhaler) Cancer: No Cardiac Disorders: No CVA: No COPD: No CHF: No Dementia: No Diabetes: No GI Disorders: No Disorders: No HTN: Yes (no med) Hypercholesterolemia: No Kidney Stones: No Liver Disease: No Psychiatric Problems: Yes (BIPOLAR; MIGRAINE;SCHIZOAFFECTIVEDISORDER) Seizures: No Thyroid Disease: No - Surgical History Abdominal Surgery: No Appendectomy: Yes (2005) Cardiac Surgery: No Cholecystectomy: No Gastric Stapling: No GI Surgery: No Lung Surgery: No Neurologic Surgery: No Orthopedic Surgery: No - Reproductive History Testicular Surgery: No - Immunization History Immunization Up to Date: Yes - Suicide/Smoking/Psychosocial Hx Smoking History: Current every day smoker Have you smoked in the past 12 months: Yes Number of Cigarettes Smoked Daily: 5 Cigars Per Day: 0 Information on smoking cessation initiated: No 'Breaking Loose' booklet given: 12/19/18 Hx Alcohol Use: No Drug/Substance Use Hx: Yes (marajuana,cocaine,heroin) Substance Use Type: Alcohol, Cocaine, Heroin, Marijuana Hx Substance Use Treatment: Yes ([facility] 06/24/18 to 06/26/18 not completed,left due to family emergency) *Physical Exam - Vital Signs Last Vital Signs Temp Pulse Resp BP Pulse Ox 98.4 F 116 H 20 147/77 99 01/07/19 19:42 01/07/19 19:42 01/07/19 19:42 01/07/19 19:42 01/07/19 19:42 ED Treatment Course - ADDITIONAL ORDERS Additional order review: Laboratory Results 01/07/19 01/07/19 20:15 20:15 Urine Color Yellow Urine Appearance Cloudy Urine pH 5.0 Ur Specific Wilson 1.017 Urine Protein Trace Urine Glucose (UA) Negative Urine Ketones Trace H Urine Blood Negative Urine Nitrite Negative Urine Bilirubin Negative Urine Urobilinogen 1.0 Ur Leukocyte Esterase Negative Opiates Screen Negative Methadone Screen Negative Barbiturate Screen Negative Phencyclidine Screen Negative Ur Amphetamines Screen Negative MDMA (Ecstasy) Screen Negative Benzodiazepines Screen Negative Cocaine Screen Negative U Marijuana (THC) Screen Positive A* Medical Decision Making - Medical Decision Making Pt was evaluated by RME. Pt was here for imbalance after "smoking laced THC" and was complaining of R hip and R shoulder. Pt was ambulatory in the ED. Pt refused blood work. Pt eloped from the waiting room after refusing further medical care. 01/07/19 20:47 *DC/Admit/Observation/Transfer Diagnosis at time of Disposition: Poly-drug misuser Shoulder pain Qualifiers: Chronicity: acute Laterality: right Qualified Code(s): M25.511 - Pain in right shoulder - Discharge Dispostion Disposition: ELOPED Condition at time of disposition: Good Decision to Admit order: No - Referrals Referrals: Adelaida Manzanares MD [Primary Care Provider] - - Patient Instructions - Post Discharge Activity
--- NOTE | 2019-01-07 20:49 | PDOC ---
Documentation entered by Peri Gunter SCRIBE, acting as scribe for Adri Lott MD. Adri Lott MD: This documentation has been prepared by the Jani rocha Sammi, SCRIBE, under my direction and personally reviewed by me in its entirety. I confirm that the documentation accurately reflects all work, treatment, procedures, and medical decision making performed by me. Attending Attestation - Resident Resident Name: Rachelle Pepper - ED Attending Attestation I have performed the following: I have examined & evaluated the patient, The case was reviewed & discussed with the resident, I agree w/resident's findings & plan, Exceptions are as noted - HPI HPI: 01/07/19 20:46 38 yo male BIBA for dizziness after smoking "laced THC" and fell onto rt side and came for shoulder pain However he walked out of the emergency after blood draw pt eloped - Physicial Exam PE: 01/07/19 20:[address] Pepper's charting - Medical Decision Making 01/07/19 20:48 imp rt shoulder pain after falling after smoking marijuana pt ambulatory in the emergency dept Refusing care and left
== END 2019-01-07 20:50 | disposition left against medical advice (07) ==
LOC: JER 19:33
DX: Z53.21 Procedure and treatment not carried out due to patient leaving prior to being seen by health care provider (principal)
CPT/HCPCS: 80307; 81003; 99282-25

== ENCOUNTER 2019-01-08 00:53 | Emergency (ER) | payer OTHER ==
[2019-01-08 01:00] VITALS: BP 129/74; PULSE 82; TEMP 98.5; BMI 44.2
== END 2019-01-08 01:20 | disposition left against medical advice (07) ==
LOC: JER 00:53
DX: Z53.21 Procedure and treatment not carried out due to patient leaving prior to being seen by health care provider (principal)
CPT/HCPCS: 99281-25

== ENCOUNTER 2019-01-08 09:48 | Emergency (ER) | payer OTHER ==
[2019-01-08 09:52] VITALS: BMI 30.4
[2019-01-08] MEDS ORDERED: chlordiazePOXIDE HCL 25 MG CAPSULE PO ONE (10:18)
--- NOTE | 2019-01-08 10:28 | PDOC ---
*Physical Exam - Vital Signs Last Vital Signs Temp Pulse Resp BP Pulse Ox 98 F 107 H 20 148/74 99 01/08/19 09:49 01/08/19 09:49 01/08/19 09:49 01/08/19 09:49 01/08/19 09:49 - Physical Exam Comments: 01/08/19 10:26 The patient was examined by [SHANIQUE Clay] under my direct supervision. I personally evaluated the patient. I concur with the above findings and the plan of care. ED Treatment Course - LABORATORY CBC & Chemistry Diagram: 01/08/19 10:31 01/08/19 10:31 *DC/Admit/Observation/Transfer Diagnosis at time of Disposition: Poly-drug misuser, Alcohol dependence - Discharge Dispostion Disposition: HOME Condition at time of disposition: Stable - Referrals Referrals: Sherri Garber MD [Staff Physician] - - Patient Instructions Printed Discharge Instructions: DI for Alcohol Abuse Additional Instructions: You are medically cleared to go to detox at this time Please go there now Return to the ER for any new or worsening symptoms - Post Discharge Activity
[2019-01-08] MEDS ORDERED: chlordiazePOXIDE HCL 25 MG CAPSULE ONE (10:34)
[2019-01-08 10:42] LABS: BASO % 0.4 % (0-2.0); HEMATOCRIT 38.5 % (35.4-49); HEMOGLOBIN 13.1 GM/dL (11.7-16.9); LYMPH % 13.9 % (8-40); MCH 29.8 pg (25.7-33.7); MCHC 33.9 g/dl (32.0-35.9); MEAN CELL VOLUME 87.9 fl (80-96); MEAN PLT VOLUME 8.3 fl (7.5-11.1); MONO % 8.7 % (3.8-10.2); PLATELET COUNT 261 K/MM3 (134-434); RBC 4.38 M/mm3 (4.00-5.60); RDW 13.6 % (11.9-15.9); WHITE BLOOD COUNT 10.3 K/mm3 (4.0-10.0)
[2019-01-08 11:14] LABS: ALBUMIN 3.8 g/dl (3.4-5.0); BILIRUBIN,TOTAL 0.4 mg/dL (0.2-1); BLOOD UREA NITROGEN 10.8 mg/dL (7-18); CALCIUM 9.6 mg/dL (8.5-10.1); TOT PROT 7.2 g/dl (6.4-8.2)
--- NOTE | 2019-01-08 11:35 | PDOC ---
History of Present Illness - General Chief Complaint: Blood Pressure Problem Stated Complaint: HIGH BLOOD PRESSURE Time Seen by Provider: 01/08/19 10:09 History Source: Patient Exam Limitations: No Limitations Past History - Travel Traveled outside of the country in the last 30 days: No Close contact w/someone who was outside of country & ill: No - Past Medical History Allergies/Adverse Reactions: Allergies Allergy/AdvReac Type Severity Reaction Status Date / Time Pork/Porcine Containing Allergy Severe Rash Verified 01/08/19 09:52 Products No Known Drug Allergies Allergy Verified 01/08/19 09:52 Home Medications: Ambulatory Orders NK [No Known Home Medication] 01/08/19 Anemia: No Asthma: Yes (on albuterol inhaler) Cancer: No Cardiac Disorders: No CVA: No COPD: No CHF: No Dementia: No Diabetes: No GI Disorders: No Disorders: No HTN: Yes Hypercholesterolemia: No Kidney Stones: No Liver Disease: No Psychiatric Problems: Yes (BIPOLAR; MIGRAINE;SCHIZOAFFECTIVEDISORDER) Seizures: No Thyroid Disease: No - Surgical History Abdominal Surgery: No Appendectomy: Yes (2005) Cardiac Surgery: No Cholecystectomy: No Gastric Stapling: No GI Surgery: No Lung Surgery: No Neurologic Surgery: No Orthopedic Surgery: No - Reproductive History Testicular Surgery: No - Immunization History Immunization Up to Date: Yes - Suicide/Smoking/Psychosocial Hx Smoking History: Current every day smoker Have you smoked in the past 12 months: Yes Number of Cigarettes Smoked Daily: 10 Cigars Per Day: 0 Information on smoking cessation initiated: No 'Breaking Loose' booklet given: 12/19/18 Hx Alcohol Use: Yes Drug/Substance Use Hx: Yes (Opiotes) Substance Use Type: Alcohol, Cocaine, Heroin, Marijuana Hx Substance Use Treatment: Yes ([facility] 06/24/18 to 06/26/18 not completed,left due to family emergency) Review of Systems - Review of Systems Able to Perform ROS?: Yes Comments:: 01/08/19 11:26 CONSTITUTIONAL: Present: tremulous Absent: fever, chills, diaphoresis, generalized weakness, malaise, loss of appetite HEENT: Absent: rhinorrhea, nasal congestion, throat pain, throat swelling, difficulty swallowing, mouth swelling, ear pain, eye pain, visual Changes CARDIOVASCULAR: Absent: chest pain, loss of consciousness, palpitations, irregular heart rate, peripheral edema RESPIRATORY: Absent: cough, shortness of breath, dyspnea with exertion, orthopnea, wheezing, stridor, hemoptysis GASTROINTESTINAL: Absent: abdominal pain, abdominal distension, nausea, vomiting, diarrhea, constipation, melena, hematochezia GENITOURINARY: Absent: dysuria, frequency, urgency, hesitancy, hematuria, flank pain, genital pain MUSCULOSKELETAL: Absent: myalgia, arthralgia, joint swelling SKIN: Absent: rash, itching, pallor HEMATOLOGIC/IMMUNOLOGIC: Absent: easy bleeding, easy bruising, lymphadenopathy, frequent infections ENDOCRINE: Absent: unexplained weight gain, unexplained weight loss, heat intolerance, cold intolerance NEUROLOGIC: Absent: headache, focal weakness or paresthesias, dizziness, unsteady gait, seizure, mental status changes, bladder or bowel incontinence PSYCHIATRIC: Absent: anxiety, depression, suicidal or homicidal ideation, hallucinations. Is the patient limited Spanish proficient: No *Physical Exam - Vital Signs Last Vital Signs Temp Pulse Resp BP Pulse Ox 98 F 107 H 20 148/74 99 01/08/19 09:49 01/08/19 09:49 01/08/19 09:49 01/08/19 09:49 01/08/19 09:49 - Physical Exam Comments: 01/08/19 11:26 GENERAL: Well developed, well nourished. Awake and alert. No acute distress. HEENT: Normocephalic, atraumatic. PERRLA, EOMI. No conjunctival pallor. Sclera are non- icteric. Moist mucous membranes. Oropharynx is clear. NECK: Supple. Full ROM. No JVD. Carotid pulses 2+ and symmetric, without bruits. No thyromegaly. No lymphadenopathy. CARDIOVASCULAR: Regular rate and rhythm. No murmurs, rubs, or gallops. Distal pulses are 2+ and symmetric. PULMONARY: No evidence of respiratory distress. Lungs clear to auscultation bilaterally. No wheezing, rales or rhonchi. ABDOMINAL: Soft. Non-tender. Non-distended. No rebound or guarding. No organomegaly. Normoactive bowel sounds. MUSCULOSKELETAL Normal range of motion at all joints. No bony deformities or tenderness. No CVA tenderness. EXTREMITIES: No cyanosis. No clubbing. No edema. No calf tenderness. SKIN: Warm and dry. Normal capillary refill. No rashes. No jaundice. NEUROLOGICAL: Pt with tremoulous hands. No tongue fasiculations noted. Alert, awake, appropriate. Cranial nerves 2-12 intact. No deficits to light touch and temperature in face, upper extremities and lower extremities. No motor deficits in the in face, upper extremities and lower extremities. Normoreflexic in the upper and lower extremities. Normal speech. Toes are down-going bilaterally. Gait is normal without ataxia. PSYCHIATRIC: Cooperative. Good eye contact. Appropriate mood and affect. ED Treatment Course - LABORATORY CBC & Chemistry Diagram: 01/08/19 10:31 01/08/19 10:31 - ADDITIONAL ORDERS Additional order review: Laboratory Results 01/08/19 10:31 Sodium 142 Potassium 4.0 Chloride 105 Carbon Dioxide 31 Anion Gap 7 L BUN 10.8 Creatinine 1.0 Est GFR (CKD-EPI)AfAm 110.17 Est GFR (CKD-EPI)NonAf 95.05 Random Glucose 84 Calcium 9.6 Total Bilirubin 0.4 AST 22 ALT 30 Alkaline Phosphatase 121 H Total Protein 7.2 Albumin 3.8 01/08/19 10:31 RBC 4.38 MCV 87.9 MCHC 33.9 RDW 13.6 MPV 8.3 Neutrophils % 76.0 Lymphocytes % 13.9 D Monocytes % 8.7 Eosinophils % 1.0 Basophils % 0.4 - Medications Given in the ED: ED Medications Discontinued Medications Generic Name Dose Route Start Last Admin Trade Name Elier PRN Reason Stop Dose Admin Chlordiazepoxide HCl 50 mg 01/08/19 10:18 01/08/19 10:37 Librium - PO 01/08/19 10:19 50 mg ONCE ONE Administration Medical Decision Making - Medical Decision Making 01/08/19 11:27 The patient is a 38-year-old male with past medical history of polysubstance abuse, alcohol abuse, presents to the ER today for clearance for detox. He states that he went there this morning however they will not accept him until he is medically cleared. He was seen last night in our ER however he refused blood work and eloped. He re-presents to the ER today to have blood work done so he may go to detox. He states his last drink was yesterday in the afternoon. He states he drank about 2 pints of vodka and a couple beers. He admits to feeling tremulous and anxious at this time. Denies fevers, chills, lightheadedness, dizziness, nausea, vomiting and diarrhea. A/P: Detox requested; medical clearance On exam lungs are clear to auscultation bilaterally, no wheezes, rales, or rhonchi. Heart sounds present, S1, S2. No murmurs rubs or gallops Patient appears tremulous at this time. We'll give history of Librium Blood pressure mildly elevated however not concerning at this time at 147/87. Patient to follow-up with his primary care doctor. EKG: Rate 89 bpm, normal intervals and axis. No acute ST-T wave elevations Patient states he still wants to go to detox. Pt is medically cleared. Case cleared with Dr. Gilliam at [facility]. Will DC with security to take him to detox at this time I discussed the physical exam findings, ancillary test results and final diagnoses with the patient. I answered all of the patient's questions. The patient was satisfied with the care received and felt comfortable with the discharge plan and treatment plan. The Patient agrees to follow up with the primary care physician/specialist within 24-72 hours. Return precautions were given. *DC/Admit/Observation/Transfer Diagnosis at time of Disposition: Poly-drug misuser Alcohol dependence Qualifiers: Substance use status: in withdrawal Complication of substance-induced condition : uncomplicated Qualified Code(s): F10.230 - Alcohol dependence with withdrawal , uncomplicated - Discharge Dispostion Disposition: HOME Condition at time of disposition: Stable Decision to Admit order: No - Referrals Referrals: Sherri Garber MD [Staff Physician] - - Patient Instructions Printed Discharge Instructions: DI for Alcohol Abuse Additional Instructions: You are medically cleared to go to detox at this time Please go there now Return to the ER for any new or worsening symptoms - Post Discharge Activity
[2019-01-08 11:59] VITALS: BP 139/82; PULSE 88; TEMP 97.6
--- NOTE | 2019-01-08 12:03 | EKG ---
Test Reason : Blood Pressure : / mmHG Vent. Rate : 089 BPM Atrial Rate : 089 BPM P-R Int : 164 ms QRS Dur : 088 ms QT Int : 378 ms P-R-T Axes : 051 003 027 degrees QTc Int : 459 ms NORMAL SINUS RHYTHM POSSIBLE LEFT ATRIAL ENLARGEMENT BORDERLINE ECG WHEN COMPARED WITH ECG OF 14-AUG-2018 00:14, NO SIGNIFICANT CHANGE WAS FOUND Confirmed by FLORA ARMIJO MD ([id number]) on 01/08/2019 12:02:54 PM Referred By: Confirmed By:FLORA ARMIJO MD
== END 2019-01-08 11:59 | disposition home or self-care (01) ==
LOC: JER 09:48
DX: Z13.89 Encounter for screening for other disorder (principal); F10.230 Alcohol dependence with withdrawal, uncomplicated; F17.210 Nicotine dependence, cigarettes, uncomplicated; F31.9 Bipolar disorder, unspecified; I10 Essential (primary) hypertension; J45.909 Unspecified asthma, uncomplicated
CPT/HCPCS: 36415; 80053; 85025; 93005; 93010; 99282-25

== ENCOUNTER 2019-01-08 13:55 | Inpatient (IN) | payer OTHER ==
[2019-01-08 16:35] VITALS: BMI 41.4
--- NOTE | 2019-01-08 17:26 | HP ---
CIWA Score Nausea/Vomitin-No Nausea/No Vomiting Muscle Tremors: 3 Anxiety: 3 Agitation: 1-Slight > Activity Paroxysmal Sweats: 1-Minimal Palms Moist Orientation: 0-Oriented Tacttile Disturbances: 0-None Auditory Disturbances: 0-None Visual Disturbances: 0-None Headache: 2-Mild (Top of head) CIWA-Ar Total Score: 10 - Admission Criteria OASAS Guidelines: Admission for Medically Managed Detox: Requires at least one of the followin. CIWA greater than 12 2. Seizures within the past 24 hours 3. Delirium tremens within the past 24 hours 4. Hallucinations within the past 24 hours 5. Acute intervention needed for co occurring medical disorder 6. Acute intervention needed for co occurring psychiatric disorder 7. Severe withdrawal that cannot be handled at a lower level of care (continued vomiting, continued diarrhea, abnormal vital signs) requiring intravenous medication and/or fluids 8. Patient presents the following: Acute intervention needed for co-occurring med or psych disorder (Patient seen in ED earlier today and given Librium.) Admission Criteria Met: Admission criteria met Admission ROS [facility] Chief Complaint: I NEED ALCOHOL DETOX. I WAS GIVEN MEDICATIONS FOR WITHDRAWAL IN THE EMERGENCY ROOM" Allergies/Adverse Reactions: Allergies Allergy/AdvReac Type Severity Reaction Status Date / Time Pork/Porcine Containing Allergy Severe Rash Verified 01/08/19 16:22 Products No Known Drug Allergies Allergy Verified 01/08/19 16:22 History of Present Illness: 38 yo w/ hx AUD seen in [facility] Ed on 01/08 on 2 occasions (alcohol abuse and shoulder pain). Patient was medically cleared to attend detox. 01/08/19 [facility] Ed history and physical exam reviewed. No need to repeat PE. Refer to ED PE. ED Labs reviewed. No need to repeat CMP/CBC. 01/08/19 EKG reviewed. QT non-elevated. RPR done on 12/19/18 - non-reactive. Patient was discharged from detox on 12/23/18 . States relapsed about 1 week later. Alcohol use began at age 16. Current usage 1/5th daily but has been trying to cut down. Heroin use began at age 17. States has not used illicit opiates for 1 week. Patient currently on Suboxone. Order is for 8 mg S=strip Q a.m. and 1/2 of 8 mg strip Q kristal. Utox + for THC; BZO; BUP EMILIA: 0 Marijuana use began at age 17. Nicotine use began at age 12. States has has decreased use to 1/2 PPD. Denies seizures, blackouts, or overdoses. No Narcan kit at home. PMHx:HTN - not on meds; Asthma - no recent exacerbation. MHHx:Depression. Anxious. Denies thoughts of harming self or others. Does not see a Provider. SHx: Lives w/ family member. Unemployed. Denies legal problems. Patient Name: Devan Petersen Date: 1980 Address: [address] [place] [address] Sex: Male Rx Written Rx Dispensed Drug Quantity Days Supply Prescriber Name 12/30/2018 12/31/2018 buprenorphine-naloxone 8-2 mg sl film 45 30 Kirstie Hitchcock MD 08/22/2018 08/23/2018 buprenorphine-naloxone 8-2 mg sl film 42 14 Alvarado Pérez Jr, MD Patient Name: Devan Petersen Date: 1980 Address: [address] [place] [address] Sex: Male Rx Written Rx Dispensed Drug Quantity Days Supply Prescriber Name 08/16/2018 08/16/2018 buprenorphine-naloxone 8-2 mg sl film 10 5 Clemencia Culp NP Patient Name: Devan Walter Date: 1980 Address: [address] [place] [address] Sex: Male Rx Written Rx Dispensed Drug Quantity Days Supply Prescriber Name 08/09/2018 08/09/2018 buprenorphine-naloxone 8-2 mg sl tablet 16 8 Gatito Sands MD Patient Name: Devan Ocampo Date: 1980 Address: [place] [address] Sex: Male Rx Written Rx Dispensed Drug Quantity Days Supply Prescriber Name 07/16/2018 07/16/2018 tramadol hcl 50 mg tablet 20 5 Yrn Cavazos Jr 07/11/2018 07/11/2018 oxycodone-acetaminophen 5-325 mg tablet 15 3 Morelia Urbano MD Exam Limitations: No Limitations - Ebola screening Have you traveled outside of the country in the last 21 days: No Have you had contact with anyone from an Ebola affected area: No Have you been sick,other than usual withdrawal symptoms: No (DENIES MEASLES EXPOSURE) Do you have a fever: No - Review of Systems Constitutional: Chills, Changes in sleep (Difficulty falling asleep. Not on meds ) EENT: reports: No Symptoms Reported Respiratory: reports: No Symptoms reported Cardiac: reports: No Symptoms Reported GI: reports: No Symptoms Reported : reports: No Symptoms Reported Musculoskeletal: reports: No Symptoms Reported Neuro: reports: Tremors Endocrine: reports: Increased Thirst Hematology: reports: No Symptoms Reported Psychiatric: reports: Judgement Intact, Orientated x3, Agitated, Anxious, Depressed (Denies thoughts of harming self or others.) Patient History - Patient Medical History Hx Anemia: No Hx Asthma: Yes (on albuterol inhaler) Hx Chronic Obstructive Pulmonary Disease (COPD): No Hx Cancer: No Hx Cardiac Disorders: No Hx Congestive Heart Failure: No Hx Hypertension: Yes Hx Hypercholesterolemia: No Hx Pacemaker: No HX Cerebrovascular Accident: No Hx Seizures: No Hx Dementia: No Hx Diabetes: No Hx Gastrointestinal Disorders: No Hx Liver Disease: No Hx Genitourinary Disorders: No Hx Sexually Transmitted Disorders: No Hx Renal Disease (ESRD): No Hx Thyroid Disease: No Hx Human Immunodeficiency Virus (HIV): No (last 07/02 negative) Hx Hepatitis C: No Hx Depression: Yes (AND ANXIETY) Hx Suicide Attempt: Yes (02/28- OVERDOSE. ADMITTED TO [facility].) Hx Bipolar Disorder: No Hx Schizophrenia: Yes - Patient Surgical History Past Surgical History: Yes Hx Neurologic Surgery: No Hx Cataract Extraction: No Hx Cardiac Surgery: No Hx Lung Surgery: No Hx Breast Surgery: No Hx Breast Biopsy: No Hx Abdominal Surgery: No Hx Appendectomy: Yes (2005) Hx Cholecystectomy: No Hx Genitourinary Surgery: No Hx Section: No Hx Orthopedic Surgery: No Hx Hysterectomy: No Anesthesia Reaction: No - PPD History Previous Implant?: Yes Documented Results: Negative w/proof Implanted On Prior [facility] Admission?: Yes Date: 06/27/18 Results: 0 mm. PPD to be Administered?: No - Smoking Cessation Smoking history: Current every day smoker Have you smoked in the past 12 months: Yes Aproximately how many cigarettes per day: 10 Cigars Per Day: 0 Hx Chewing Tobacco Use: No Initiated information on smoking cessation: Yes 'Breaking Loose' booklet given: 01/08/19 - Substance & Tx. History Hx Alcohol Use: Yes Hx Substance Use: Yes Substance Use Type: Alcohol, Cocaine, Heroin, Marijuana, Opiates Hx Substance Use Treatment: Yes (detox, rehab, Currently on Suboxone) - Substances abused Heroin Other (specify): SNIFF Substance route: Inhalation Frequency: Daily Amount used: 1 bundle Age of first use: 17 Date of last use: 01/07/19 Alcohol Substance route: Oral Frequency: Daily Amount used: 1/5th of henessy Age of first use: 16 Date of last use: 01/07/19 Marijuana/Hashish Substance route: Smoking Frequency: Daily Amount used: $20 Age of first use: 14 Date of last use: 01/07/19 Cocaine Substance route: Smoking Frequency: Daily Amount used: 8 ball 50$ Age of first use: 13 Date of last use: 01/06/19 Family Disease History - Family Disease History Family Disease History: Diabetes: Father, Mother Admission Physical Exam [facility] - Vital Signs Vital Signs: Vital Signs - 24 hr 01/08/19 16:31 Temperature 99.0 F Pulse Rate 120 H Respiratory 16 Rate Blood Pressure 138/85 - Physical General Appearance: Yes: Nourished, Mild Distress, Obese, Tremorous (MILD), Sweating (INCREASED FACIAL MOISTURE) Respiratory: Yes: Lungs Clear, Normal Breath Sounds, No Respiratory Distress Extremities: Yes: Tremors (Mild tremors) - Diagnostic (1) Alcohol dependence with uncomplicated withdrawal Current Visit: Yes Status: Acute (2) Cannabis dependence Current Visit: No Status: Acute (3) Nicotine dependence Current Visit: Yes Status: Chronic Qualifiers: Nicotine product type: cigarettes Substance use status: uncomplicated Qualified Code(s): F17.210 - Nicotine dependence, cigarettes, uncomplicated (4) History of asthma Current Visit: No Status: Chronic (5) Morbid obesity Current Visit: Yes Status: Chronic (6) Opioid dependence on agonist therapy Current Visit: Yes Status: Chronic Comment: On Suboxone Cleared for Admission [facility] - Detox or Rehab [facility] Level of Care: Medically Managed Detox Regimen/Protocol: Librium Claeared for Rehab Admission: No Breathalyzer - Breathalyzer Breathalyzer: 0 Urine Drug Screen - Test Device Lot number: [id number] Expiration date: 10/11/20 - Control Is test valid?: Yes - Results Drug screen NEGATIVE: No Urine drug screen results: THC-Marijuana, BZO-Benzodiazepines, BUP-Suboxone Inpatient Rehab Admission - Rehab Decision to Admit Inpatient rehab admission?: No
[2019-01-08] MEDS ORDERED: ACETAMINOPHEN 325 MG TABLET (FP) PO PRN ×2 (18:15)
[2019-01-08] MEDS ORDERED: MELATONIN 5 MG TABLETS PO PRN (18:15)
[2019-01-08] MEDS ORDERED: MENTHOL/PHENOL 1 EACH UD MM PRN (18:15)
[2019-01-08] MEDS ORDERED: NICOTINE POLACRILEX 2 MG GUM BUC PRN (18:15)
[2019-01-08] MEDS ORDERED: chlordiazePOXIDE HCL 10 MG CAPSULE PO PRN (18:15)
[2019-01-08] MEDS ORDERED: MAGNESIUM HYDROX 2400MG/30ML ORAL SUSPENSION 30 ML CUP PO PRN (18:15)
[2019-01-08] MEDS ORDERED: IBUPROFEN 400 MG TABLET (FP) PO PRN (18:15)
[2019-01-08] MEDS ORDERED: MAG HYDROX/AL HYDROX/SIMETH 30 ML UNIT-DOSE CUP PO PRN (18:15)
[2019-01-08] MEDS ORDERED: MAGNESIUM CITRATE 300 ML BOTTLE PO PRN (18:15)
[2019-01-08] MEDS ORDERED: BISMUTH SUBSALICYLATE 524 MG/30 ML UD PO PRN (18:15)
[2019-01-08] MEDS ORDERED: METHOCARBAMOL 500 MG TABLET PO PRN (18:15)
[2019-01-08] MEDS: THIAMINE HCL 100 MG TABLET (FP) PO SCH (21:26)
[2019-01-08] MEDS: chlordiazePOXIDE HCL 25 MG CAPSULE PO SCH (21:26)
[2019-01-08] MEDS: BUPRENORPHINE/NALOXONE 4 MG/1 MG FILM PACKET SL SCH (21:26)
[2019-01-09] MEDS: chlordiazePOXIDE HCL 25 MG CAPSULE PO SCH ×3 (05:46→21:59)
[2019-01-09] MEDS ORDERED: PRENATAL VITAMINS W/ FOLIC ACID TABLET (FP) PO SCH (10:00)
[2019-01-09] MEDS ORDERED: BUPRENORPHINE/NALOXONE 8 MG/2 MG FILM PACKET SL SCH (10:00)
[2019-01-09] MEDS ORDERED: NICOTINE 14 MG/24 HOURS TOPICAL PATCH TD SCH (10:00)
--- NOTE | 2019-01-09 12:27 | PN ---
S CIWA - CIWA Score Nausea/Vomitin-No Nausea/No Vomiting Muscle Tremors: 3 Anxiety: 2 Agitation: 2 Paroxysmal Sweats: 2 Orientation: 0-Oriented Tacttile Disturbances: 0-None Auditory Disturbances: 0-None Visual Disturbances: 0-None Headache: 0-None Present CIWA-Ar Total Score: 9 [facility] Progress Note (SOAP) Subjective: sweats mild shakes interrupted sleep body aches Objective: 01/09/19 12:26 Vital Signs Temperature 97.6 F 01/09/19 09:43 Pulse Rate 85 01/09/19 09:43 Respiratory Rate 18 01/09/19 09:43 Blood Pressure 113/54 L 01/09/19 09:43 O2 Sat by Pulse Oximetry (%) labs pending aaox3 ambulating no acute distress Assessment: 01/09/19 12:26 withdrawal sx Plan: continue detox increase fluids pending labs
[2019-01-09] MEDS: THIAMINE HCL 100 MG TABLET (FP) PO SCH (22:00)
[2019-01-09] MEDS: BUPRENORPHINE/NALOXONE 4 MG/1 MG FILM PACKET SL SCH (22:00)
[2019-01-10] MEDS ORDERED: chlordiazePOXIDE 5 MG CAPSULE PO SCH (05:00)
[2019-01-10 07:19] VITALS: BP 116/65; PULSE 74; TEMP 97.7
--- NOTE | 2019-01-10 09:42 | PN ---
[facility] Progress Note Note: pt was admitted in withdrawals today pt states he is feeling a bit better and is refusing to complete his detox. aggressive management attempted however pt in spite of extensive motivational counseling regarding the risks of seizures, DT, OD and loss pt chose to sign out AMA.
--- NOTE | 2019-01-10 09:47 | DS ---
[facility] Detox Discharge Summary Admission Date: 01/08/19 - History Present History: Alcohol Dependence, Cannabis Dependence - Physical Exam Results Vital Signs: Vital Signs Temperature 97.7 F 01/10/19 06:00 Pulse Rate 74 01/10/19 06:00 Respiratory Rate 20 01/10/19 06:00 Blood Pressure 116/65 01/10/19 06:00 O2 Sat by Pulse Oximetry (%) Pertinent Admission Physical Exam Findings: pt arrived in withdrawals pt signed out AMA. - Treatment Patient has Accepted a Rehab Referral to: pt declined rehab; referral provided - Medication Discharge Medications: Ambulatory Orders Buprenorp-Nalox 8-2 mg Sl Film 1 film SL DAILY 01/08/19 Buprenorphine HCl/Naloxone HCl [Buprenorp-Nalox 4-1 mg Sl Film] 1 strip SL DAILY @2100 01/08/19 - Diagnosis (1) Alcohol dependence with uncomplicated withdrawal Current Visit: Yes Status: Chronic (2) Morbid obesity Current Visit: Yes Status: Chronic (3) Nicotine dependence Current Visit: Yes Status: Chronic Qualifiers: Nicotine product type: cigarettes Substance use status: uncomplicated Qualified Code(s): F17.210 - Nicotine dependence, cigarettes, uncomplicated (4) Opioid dependence on agonist therapy Current Visit: Yes Status: Chronic (5) Acute exacerbation of chronic low back pain Current Visit: No Status: Acute (6) Alcohol use disorder, moderate, in early remission Current Visit: No Status: Acute (7) Back strain Current Visit: No Status: Acute Qualifiers: Encounter type: initial encounter Qualified Code(s): S39.012A - Strain of muscle, fascia and tendon of lower back, initial encounter (8) Cannabis dependence Current Visit: Yes Status: Chronic (9) Cocaine dependence Current Visit: Yes Status: Chronic Qualifiers: Substance use status: uncomplicated Qualified Code(s): F14.20 - Cocaine dependence, uncomplicated (10) Heroin abuse Current Visit: No Status: Acute (11) Knee pain, right Current Visit: No Status: Acute Qualifiers: Chronicity: chronic Qualified Code(s): M25.561 - Pain in right knee; G89.29 - Other chronic pain (12) Obese Current Visit: Yes Status: Chronic Qualifiers: Obesity type: unspecified obesity type Obesity classification: adult class 1 (BMI 30 - 34.9) (13) PCP dependence Current Visit: Yes Status: Chronic (14) Shoulder pain Current Visit: Yes Status: Acute Qualifiers: Chronicity: chronic Laterality: right Qualified Code(s): M25.511 - Pain in right shoulder; G89.29 - Other chronic pain (15) Substance abuse Current Visit: No Status: Acute (16) Syncope Current Visit: No Status: Acute (17) Anxiety and depression Current Visit: No Status: Chronic (18) Asthma Current Visit: Yes Status: Chronic Qualifiers: Asthma severity: mild Asthma persistence: intermittent Asthma complication type: with status asthmaticus Qualified Code(s): J45.22 - Mild intermittent asthma with status asthmaticus (19) Cannabis dependence Current Visit: No Status: Chronic (20) HTN (hypertension) Current Visit: Yes Status: Chronic Qualifiers: Hypertension type: essential hypertension Qualified Code(s): I10 - Essential (primary) hypertension (21) History of asthma Current Visit: No Status: Chronic (22) Insomnia Current Visit: No Status: Chronic Qualifiers: Insomnia type: unspecified Qualified Code(s): G47.00 - Insomnia, unspecified (23) Schizophrenia Current Visit: No Status: Chronic Qualifiers: Schizophrenia type: unspecified Qualified Code(s): F20.9 - Schizophrenia, unspecified (24) Substance-induced sleep disorder Current Visit: No Status: Chronic (25) Substance induced mood disorder Current Visit: No Status: Suspected - AMA Did Patient Leave Against Medical Advice: Yes
[2019-01-11] MEDS ORDERED: chlordiazePOXIDE HCL 10 MG CAPSULE PO PRN
[2019-01-11] MEDS ORDERED: chlordiazePOXIDE HCL 10 MG CAPSULE PO SCH (05:00)
[2019-01-12] MEDS ORDERED: chlordiazePOXIDE HCL 10 MG CAPSULE PO ONE (05:00)
== END 2019-01-10 08:51 | disposition left against medical advice (07) | DRG 351 ==
LOC: YASAS 13:55 → Y6N 18:37
PROVIDERS: ADMIT Surgery; ATTEND Surgery
PROC: HZ2ZZZZ Detoxification Services for Substance Abuse Treatment (ICD-10-PCS; principal; 2019-01-08)
DX: M25.561 Pain in right knee (principal); F10.230 Alcohol dependence with withdrawal, uncomplicated; F11.20 Opioid dependence, uncomplicated; F14.20 Cocaine dependence, uncomplicated; F16.20 Hallucinogen dependence, uncomplicated; F12.20 Cannabis dependence, uncomplicated; F17.210 Nicotine dependence, cigarettes, uncomplicated; F20.9 Schizophrenia, unspecified; F19.24 Other psychoactive substance dependence with psychoactive substance-induced mood disorder; F19.282 Other psychoactive substance dependence with psychoactive substance-induced sleep disorder; F41.9 Anxiety disorder, unspecified; F32.9 Major depressive disorder, single episode, unspecified; G47.00 Insomnia, unspecified; I10 Essential (primary) hypertension; J45.22 Mild intermittent asthma with status asthmaticus; M25.511 Pain in right shoulder; G89.29 Other chronic pain; M54.5 Low back pain; E66.01 Morbid (severe) obesity due to excess calories; Z68.41 Body mass index [BMI] 40.0-44.9, adult

== ENCOUNTER 2019-01-18 00:57 | Emergency (ER) | payer OTHER ==
[2019-01-18] MEDS ORDERED: IBUPROFEN 600 MG TABLET (FP) PO ONE ×2 (01:33→02:04)
--- NOTE | 2019-01-18 01:34 | PDOC ---
History of Present Illness - General Chief Complaint: Back Pain Stated Complaint: FALL Time Seen by Provider: 01/18/19 01:21 Past History - Past Medical History Allergies/Adverse Reactions: Allergies Allergy/AdvReac Type Severity Reaction Status Date / Time Pork/Porcine Containing Allergy Severe Rash Verified 01/08/19 16:22 Products No Known Drug Allergies Allergy Verified 01/08/19 16:22 Home Medications: Ambulatory Orders Buprenorp-Nalox 8-2 mg Sl Film 1 film SL DAILY 01/08/19 Buprenorphine HCl/Naloxone HCl [Buprenorp-Nalox 4-1 mg Sl Film] 1 strip SL DAILY @2100 01/08/19 Methocarbamol [Robaxin-750] 750 mg PO BID 5 Days #10 tablet 01/18/19 Anemia: No Asthma: Yes (on albuterol inhaler) Cancer: No Cardiac Disorders: No CVA: No COPD: No CHF: No Dementia: No Diabetes: No GI Disorders: No Disorders: No HTN: Yes Hypercholesterolemia: No Kidney Stones: No Liver Disease: No Psychiatric Problems: Yes (BIPOLAR; MIGRAINE;SCHIZOAFFECTIVEDISORDER) Seizures: No Thyroid Disease: No - Surgical History Abdominal Surgery: No Appendectomy: Yes (2005) Cardiac Surgery: No Cholecystectomy: No Gastric Stapling: No GI Surgery: No Lung Surgery: No Neurologic Surgery: No Orthopedic Surgery: No - Reproductive History Testicular Surgery: No - Immunization History Immunization Up to Date: Yes - Suicide/Smoking/Psychosocial Hx Smoking History: Current every day smoker Have you smoked in the past 12 months: Yes Number of Cigarettes Smoked Daily: 10 Cigars Per Day: 0 'Breaking Loose' booklet given: 01/08/19 Hx Alcohol Use: Yes Drug/Substance Use Hx: Yes Substance Use Type: Alcohol, Cocaine, Heroin, Marijuana, Opiates Hx Substance Use Treatment: Yes (detox, rehab, Currently on Suboxone) *DC/Admit/Observation/Transfer Diagnosis at time of Disposition: Fall Qualifiers: Encounter type: initial encounter Qualified Code(s): W19.XXXA - Unspecified fall, initial encounter - Discharge Dispostion Disposition: HOME Condition at time of disposition: Stable Decision to Admit order: No - Prescriptions Prescriptions: Methocarbamol [Robaxin-750] 750 mg PO BID 5 Days #10 tablet - Referrals - Patient Instructions Printed Discharge Instructions: DI for Thoracic Back Pain Additional Instructions: You were seen in the Emergency Department after a fall at home. Your x-rays do not show any sign of bone fracture. Please follow up with your primary care provider as soon as possible, in the next 7 days. We are prescribing you a muscle relaxant for the pain, please take it as directed. - Post Discharge Activity
[2019-01-18 01:57] VITALS: TEMP 98.3; BMI 31.2
[2019-01-18] MEDS ORDERED: METHOCARBAMOL 500 MG TABLET PO ONE (02:06)
[2019-01-18] MEDS ORDERED: METHOCARBAMOL 500 MG TABLET ONE (02:11)
--- NOTE | 2019-01-18 02:14 | PDOC ---
Attending Attestation - Resident Resident Name: Cristino Briones - ED Attending Attestation I have performed the following: I have examined & evaluated the patient, The case was reviewed & discussed with the resident, I agree w/resident's findings & plan - HPI HPI: 01/18/19 02:12 Pt slipped and fell down 2-4 steps at his girfriends home. No LOC, No head injury. Back pain only. - Physicial Exam PE: 01/18/19 02:12 Agree with resident exam. Pt shirley parapinal back pain and mid back pain with deep plapation around T7-10 and L1 Pt has no neurologic findings. Pt is able to ambulate in the ER. - Medical Decision Making 01/18/19 02:13 XR Tspine and L spine normal. Pt will be treated with motrin and robaxin and he will be reevaluated. He is stable for discharge. Pt is a known alcoholic and states that he is not sure if he wants detox. However, he waslked out of detox 1 week ago, and thus doesn't qualify to go [facility] so soon.
[2019-01-18 02:30] VITALS: BP 140/92; PULSE 89
== END 2019-01-18 02:45 | disposition home or self-care (01) ==
LOC: JER 00:57
DX: M54.6 Pain in thoracic spine (principal); M54.5 Low back pain; W10.8XXA Fall (on) (from) other stairs and steps, initial encounter; Y93.89 Activity, other specified; Y92.018 Other place in single-family (private) house as the place of occurrence of the external cause; Y99.8 Other external cause status; I10 Essential (primary) hypertension; J45.909 Unspecified asthma, uncomplicated; F11.20 Opioid dependence, uncomplicated; Z86.59 Personal history of other mental and behavioral disorders
CPT/HCPCS: 72070-TC-FY; 72100-TC-FY; 99282-25

== ENCOUNTER 2019-02-14 12:20 | Inpatient (IN) | payer OTHER ==
[2019-02-14 13:57] VITALS: BMI 41.5
--- NOTE | 2019-02-14 16:39 | HP ---
"CIWA Score Nausea/Vomitin Muscle Tremors: 2 Anxiety: 2 Agitation: 2 Paroxysmal Sweats: No Perspiration Orientation: 3-Disoriented Date>2 days Tacttile Disturbances: 0-None Auditory Disturbances: 0-None Visual Disturbances: 0-None Headache: 5-Severe CIWA-Ar Total Score: 16 - Admission Criteria OASAS Guidelines: Admission for Medically Managed Detox: Requires at least one of the followin. CIWA greater than 12 2. Seizures within the past 24 hours 3. Delirium tremens within the past 24 hours 4. Hallucinations within the past 24 hours 5. Acute intervention needed for co occurring medical disorder 6. Acute intervention needed for co occurring psychiatric disorder 7. Severe withdrawal that cannot be handled at a lower level of care (continued vomiting, continued diarrhea, abnormal vital signs) requiring intravenous medication and/or fluids 8. Admitting History and Physical - Smoking History Smoking history: Current every day smoker Have you smoked in the past 12 months: Yes Aproximately how many cigarettes per day: 10 - Alcohol/Substance Use Hx Alcohol Use: Yes Admission [facility] Allergies/Adverse Reactions: Allergies Allergy/AdvReac Type Severity Reaction Status Date / Time Pork/Porcine Containing Allergy Severe Rash Verified 02/14/19 13:37 Products No Known Drug Allergies Allergy Verified 02/14/19 13:37 History of Present Illness: This report was requested by: Abbi Anderson | Reference #: [id number] Others' Prescriptions Patient Name: Devan Petersen Date: 1980 Address: [address] [place] [address] Sex: Male Rx Written Rx Dispensed Drug Quantity Days Supply Prescriber Name 12/30/2018 12/31/2018 buprenorphine-naloxone 8-2 mg sl film 45 30 Kirstie Hitchcock MD 08/22/2018 08/23/2018 buprenorphine-naloxone 8-2 mg sl film 42 14 Alvarado Pérez Jr, MD Patient Name: Devan Petersen Date: 1980 Address: [address] [place] [address] Sex: Male Rx Written Rx Dispensed Drug Quantity Days Supply Prescriber Name 08/16/2018 08/16/2018 buprenorphine-naloxone 8-2 mg sl film 10 5 Clemencia Culp NP Patient Name: Devan Walter Date: 1980 Address: [address] [place] [address] Sex: Male Rx Written Rx Dispensed Drug Quantity Days Supply Prescriber Name 08/09/2018 08/09/2018 buprenorphine-naloxone 8-2 mg sl tablet 16 8 Gatito Sands MD Patient Name: Devan Ocampo Date: 1980 Address: [address] [place] [address] [address] [place] [address] Sex: Male Rx Written Rx Dispensed Drug Quantity Days Supply Prescriber Name 07/16/2018 07/16/2018 tramadol hcl 50 mg tablet 20 5 Yrn Cavazos Jr 07/11/2018 07/11/2018 oxycodone-acetaminophen 5-325 mg tablet 15 3 Morelia Urbano MD pt here requesting detox from etoh use , reports 1 bottle liquor 1 pint daily & 12-pk beer , starts drinking in the mornings, reports tremors if not drinking , latest use yesterday , use x 10 years heavily , current symptoms as above . Pt was overnight at [facility] 2/2 intoxication , anxiety / panic attack , has d/c paperwork , no labs cocaine : 2 gr/day via inhalation tobacco : /2 ppd cannabis - 20 $ /day in buprenorphine program program , latest taken film , agreeable to continue w/ 1 film/ day . PMHX : denies PSHX : denies PSYch : depression , past suicide attempt ago 10 yrs ago w/ pills , denies current SI / HI SHx : denies legal issues , lives w/ aunt & brother , no children Exam Limitations: Clinical Condition - Ebola screening Have you traveled outside of the country in the last 21 days: No Have you had contact with anyone from an Ebola affected area: No Do you have a fever: No - Review of Systems Constitutional: No Symptoms Reported EENT: reports: No Symptoms Reported Respiratory: reports: No Symptoms reported Cardiac: reports: No Symptoms Reported GI: reports: See HPI : reports: No Symptoms Reported Musculoskeletal: reports: No Symptoms Reported Integumentary: reports: No Symptoms Reported Neuro: reports: See HPI, Headache, Tremors Endocrine: reports: No Symptoms Reported Hematology: reports: No Symptoms Reported Psychiatric: reports: Orientated x3, Anxious, Depressed Patient History - Patient Medical History Hx Anemia: No Hx Asthma: Yes (on albuterol inhaler) Hx Chronic Obstructive Pulmonary Disease (COPD): No Hx Cancer: No Hx Cardiac Disorders: No Hx Congestive Heart Failure: No Hx Hypertension: Yes Hx Hypercholesterolemia: No Hx Pacemaker: No HX Cerebrovascular Accident: No Hx Seizures: No Hx Dementia: No Hx Diabetes: No Hx Gastrointestinal Disorders: No Hx Liver Disease: No Hx Genitourinary Disorders: No Hx Sexually Transmitted Disorders: No Hx Renal Disease (ESRD): No Hx Thyroid Disease: No Hx Human Immunodeficiency Virus (HIV): No (last 07/02 negative) Hx Hepatitis C: No Hx Depression: Yes (AND ANXIETY) Hx Suicide Attempt: Yes (02/28- OVERDOSE. ADMITTED TO [facility].) Hx Bipolar Disorder: No Hx Schizophrenia: Yes - Patient Surgical History Past Surgical History: Yes Hx Neurologic Surgery: No Hx Cataract Extraction: No Hx Cardiac Surgery: No Hx Lung Surgery: No Hx Breast Surgery: No Hx Breast Biopsy: No Hx Abdominal Surgery: No Hx Appendectomy: Yes (2005) Hx Cholecystectomy: No Hx Genitourinary Surgery: No Hx Section: No Hx Orthopedic Surgery: No Hx Hysterectomy: No Anesthesia Reaction: No - PPD History Date: 06/27/18 Results: 0 mm. - Smoking Cessation Smoking history: Current every day smoker Have you smoked in the past 12 months: Yes Aproximately how many cigarettes per day: 10 Cigars Per Day: 0 Hx Chewing Tobacco Use: No Initiated information on smoking cessation: No - Substances abused Heroin Other (specify): SNIFF Substance route: Inhalation Frequency: Daily Amount used: 10 dollars Age of first use: 17 Date of last use: 02/13/19 Alcohol Substance route: Oral Frequency: Daily Amount used: 12 cans of beer/ 5th of Henessy. Age of first use: 16 Date of last use: 02/13/19 Marijuana/Hashish Substance route: Smoking Frequency: Daily Amount used: 40 dollars Age of first use: 14 Date of last use: 02/13/19 Cocaine Substance route: Smoking Frequency: Daily Amount used: 100 dollars Age of first use: 13 Date of last use: 02/13/19 Other Other (specify): Ativan Substance route: Oral Frequency: Daily Amount used: 2 pills , does not know the dosage. Age of first use: 37 Date of last use: 02/13/19 PCP Substance route: Smoking Frequency: Daily Amount used: 10 bags Age of first use: 36 Date of last use: 02/13/19 Admission Physical Exam BHS - Vital Signs Vital Signs: Vital Signs - 24 hr 02/14/19 13:34 Temperature 97.5 F L Pulse Rate 80 Respiratory 18 Rate Blood Pressure 124/66 - Physical General Appearance: Yes: Mild Distress, Anxious HEENTM: Yes: EOMI, Hearing grossly Normal, Normocephalic, Normal Voice Respiratory: Yes: Chest Non-Tender, Lungs Clear, Normal Breath Sounds, No Respiratory Distress, No Accessory Muscle Use Neck: Yes: No masses,lesions,Nodules, Trachea in good position Cardiology: Yes: Regular Rhythm, Regular Rate, S1, S2 Abdominal: Yes: Normal Bowel Sounds, Non Tender, Soft Musculoskeletal: Yes: Gait Steady Extremities: Yes: Normal Capillary Refill, Normal Inspection, Normal Range of Motion, Non-Tender 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: Yes: Fully Oriented, Alert, Motor Strength 5/5, Depressed Affect Integumentary: Yes: Warm - Diagnostic (1) Alcohol dependence with uncomplicated withdrawal Current Visit: Yes Status: Chronic (2) Cannabis dependence Current Visit: Yes Status: Chronic (3) Cocaine dependence Current Visit: Yes Status: Chronic Qualifiers: Substance use status: uncomplicated Qualified Code(s): F14.20 - Cocaine dependence, uncomplicated (4) Nicotine dependence Current Visit: Yes Status: Chronic Qualifiers: Nicotine product type: cigarettes (5) Opioid dependence on agonist therapy Current Visit: Yes Status: Chronic Comment: On Suboxone Breathalyzer - Breathalyzer Breathalyzer: 0 Urine Drug Screen - Test Device Lot number: [id number] Expiration date: 10/11/20 - Control Is test valid?: Yes - Results Drug screen NEGATIVE: No Urine drug screen results: THC-Marijuana, AGUSTINA-Cocaine, BUP-Suboxone Inpatient Rehab Admission - Rehab Decision to Admit Inpatient rehab admission?: No"
[2019-02-14] MEDS ORDERED: BISMUTH SUBSALICYLATE 524 MG/30 ML UD PO PRN (16:42)
[2019-02-14] MEDS ORDERED: ACETAMINOPHEN 325 MG TABLET (FP) PO PRN ×2 (16:42)
[2019-02-14] MEDS ORDERED: IBUPROFEN 400 MG TABLET (FP) PO PRN (16:42)
[2019-02-14] MEDS ORDERED: ONDANSETRON *ODT* 4 MG TABLET SL PRN (16:42)
[2019-02-14] MEDS ORDERED: MAGNESIUM CITRATE 300 ML BOTTLE PO PRN (16:42)
[2019-02-14] MEDS ORDERED: MAG HYDROX/AL HYDROX/SIMETH 30 ML UNIT-DOSE CUP PO PRN (16:42)
[2019-02-14] MEDS ORDERED: MAGNESIUM HYDROX 2400MG/30ML ORAL SUSPENSION 30 ML CUP PO PRN (16:42)
[2019-02-14] MEDS ORDERED: MENTHOL/PHENOL 1 EACH UD MM PRN (16:42)
[2019-02-14] MEDS ORDERED: chlordiazePOXIDE HCL 25 MG CAPSULE PO PRN (16:44)
[2019-02-14] MEDS: chlordiazePOXIDE HCL 25 MG CAPSULE PO SCH ×2 (18:33→22:21)
[2019-02-14] MEDS: THIAMINE HCL 100 MG TABLET (FP) PO SCH (22:21)
[2019-02-15] MEDS: chlordiazePOXIDE HCL 25 MG CAPSULE PO SCH ×4 (06:28→22:24)
[2019-02-15] MEDS: METHOCARBAMOL 500 MG TABLET PO PRN (10:11)
[2019-02-15] MEDS: BUPRENORPHINE/NALOXONE 8 MG/2 MG FILM PACKET SL SCH (10:12)
[2019-02-15] MEDS: PRENATAL VITAMINS W/ FOLIC ACID TABLET (FP) PO SCH (10:12)
[2019-02-15 11:18] LABS: HEMATOCRIT 34.8 % (35.4-49); HEMOGLOBIN 12.1 GM/dL (11.7-16.9); MCH 30.2 pg (25.7-33.7); MCHC 34.9 g/dl (32.0-35.9); MEAN CELL VOLUME 86.7 fl (80-96); PLATELET COUNT 227 K/MM3 (134-434); RBC 4.01 M/mm3 (4.00-5.60); RDW 13.7 % (11.9-15.9); WHITE BLOOD COUNT 7.4 K/mm3 (4.0-10.0)
[2019-02-15 11:20] LABS: ALBUMIN 3.4 g/dl (3.4-5.0); BILIRUBIN,TOTAL 0.3 mg/dL (0.2-1); BLOOD UREA NITROGEN 16.5 mg/dL (7-18); CALCIUM 8.7 mg/dL (8.5-10.1); CREATININE 0.9 mg/dL (0.55-1.3); POTASSIUM 3.9 mmol/L (3.5-5.1); TOT PROT 6.1 g/dl (6.4-8.2)
--- NOTE | 2019-02-15 14:57 | CONSULT ---
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 This is one of multiple admissions for patient. Patient admitted to for cocaine dependence. Substance Abuse History: Smoking Cessation. Smoking history: Current every day smoker. Have you smoked in the past 12 months: Yes. Aproximately how many cigarettes per day: 10. Cigars Per Day: 0. Hx Chewing Tobacco Use: No. Initiated information on smoking cessation: No. - Substances abused. Heroin. Other (specify): SNIFF. Substance route: Inhalation. Frequency: Daily. Amount used: 10 dollars. Age of first use: 17. Date of last use: 02/13. Alcohol. Substance route: Oral. Frequency: Daily. Amount used: 12 cans of beer/ 5th of Henessy. Age of first use: 16. Date of last use: . Marijuana/Hashish. Substance route: Smoking. Frequency: Daily. Amount used: 40 dollars. Age of first use: 14. Date of last use: 02/13/19. * * Cocaine. Substance route: Smoking. Frequency: Daily. Amount used: 100 dollars. Age of first use: 13. Date of last use: 02/13/19. Other. Other ( specify): Ativan. Substance route: Oral. Frequency: Daily. Amount used: 2 pills , does not know the dosage. Age of first use: 37. Date of last use: 07/30. PCP. Substance route: Smoking. Frequency: Daily. Amount used: 10 bags. Age of first use: 36. Date of last use: 02/13/19 Medical History: Asthma, hypertension, Appendectomy Psychiatric History: Hr Internship spoke to patient bedside as per patients request. Patient unable to formulate a cohesive psychiatric history. Patient reports history of one psychiatric hospitalization six months ago after endorsing auditory hallucinations. Diagnosis of Schizoaffective disorder. Mr. Petersen reports receiving outpatient psychiatric care by Dr. Pérez at [facility] in [facility]. Reports being prescribed seroquel 200mg BID. Patient reports history of one suicide attempt by overdose. At present patient denies auditory/visual hallucination, suicidal/homicidal ideation. Physical/Sexual Abuse/Trauma History: denies. Mental Status Exam - Mental Status Exam Alert and Oriented to: Time, Place, Person Cognitive Function: Good Patient Appearance: Unkempt (Maldorous) Mood: Withdrawn Affect: Mood Congruent, Constricted Patient Behavior: Cooperative Speech Pattern: Clear Voice Loudness: Moderately Soft/Quiet Thought Process: Goal Oriented Thought Disorder: Not Present Hallucinations: Denies Suicidal Ideation: Denies Homicidal Ideation: Denies Insight/Judgement: Poor Sleep: Poorly Appetite: Fair Muscle strength/Tone: Normal Gait/Station: Normal Psychiatric Findings - Problem List ([place] 1, 2,3) (1) Schizoaffective disorder Current Visit: Yes Status: Chronic (2) Alcohol dependence with uncomplicated withdrawal Current Visit: Yes Status: Acute (3) Cannabis dependence Current Visit: Yes Status: Chronic (4) Cocaine dependence Current Visit: Yes Status: Chronic Qualifiers: Substance use status: uncomplicated Qualified Code(s): F14.20 - Cocaine dependence, uncomplicated (5) Opioid dependence on agonist therapy Current Visit: Yes Status: Chronic Comment: On Suboxone - Initial Treatment Plan Initial Treatment Plan: Psychoeducation provided. Detoxification in progress. Patient reports receiving medications from [facility] at in [place]. [facility] pharmacy called at [phone]. As per pharmacist patient never filled his prescription in december of 2018 of Seroquel 200mg Xl + Invega 3mg ER. Patinet is noncompliant. Will order Seroquel 100mg HS. Benefits and side effects discussed. Verbal consent given.
--- NOTE | 2019-02-15 15:43 | PN ---
S CIWA - CIWA Score Nausea/Vomitin Muscle Tremors: 3 Anxiety: 4-Mod. Anxious/Guarded Agitation: 0-Normal Activity Paroxysmal Sweats: No Perspiration Orientation: 2-Disoriented Date<2 days Tacttile Disturbances: 0-None Auditory Disturbances: 0-None Visual Disturbances: 2-Mild Sensitivity Headache: 0-None Present CIWA-Ar Total Score: 14 [facility] Progress Note (SOAP) Subjective: Tremors, Anxious, Nausea, Fatigue. Objective: PATIENT A & O X 2 (UNCERTAIN ABOUT CURRENT DAY/ DATE). PATIENT OBSERVED AMBULATING ON DETOX UNIT UNASSISTED. IN NO ACUTE DISTRESS. 02/15/19 15:42 Vital Signs Temperature 96.0 F L 02/15/19 14:35 Pulse Rate 86 02/15/19 14:35 Respiratory Rate 20 02/15/19 14:35 Blood Pressure 128/77 02/15/19 14:35 O2 Sat by Pulse Oximetry (%) Laboratory Tests 02/15/19 02/15/19 02/15/19 08:10 08:10 08:10 WBC 7.4 RBC 4.01 Hgb 12.1 Hct 34.8 L MCV 86.7 MCH 30.2 MCHC 34.9 RDW 13.7 Plt Count 227 MPV 9.0 Sodium 143 Potassium 3.9 Chloride 108 H Carbon Dioxide 30 Anion Gap 5 L BUN 16.5 Creatinine 0.9 Est GFR (CKD-EPI)AfAm 125.13 Est GFR (CKD-EPI)NonAf 107.97 Random Glucose 85 Calcium 8.7 Total Bilirubin 0.3 AST 14 L ALT 21 Alkaline Phosphatase 89 Total Protein 6.1 L Albumin 3.4 RPR Titer Nonreactive LABS NOTED. Assessment: 02/15/19 15:42 WITHDRAWAL SYMPTOMS. Plan: CONTINUE DETOX. PRN ZOFRAN SL FOR NAUSEA.
[2019-02-15] MEDS: THIAMINE HCL 100 MG TABLET (FP) PO SCH (22:24)
[2019-02-15] MEDS: QUEtiapine FUMARATE 100 MG TABLET (FP) PO SCH (22:24)
[2019-02-15] MEDS: MELATONIN 5 MG TABLETS PO PRN (22:25)
[2019-02-16] MEDS: chlordiazePOXIDE HCL 25 MG CAPSULE PO SCH ×4 (07:12→22:14)
[2019-02-16] MEDS: PRENATAL VITAMINS W/ FOLIC ACID TABLET (FP) PO SCH (10:07)
[2019-02-16] MEDS: BUPRENORPHINE/NALOXONE 8 MG/2 MG FILM PACKET SL SCH (10:07)
--- NOTE | 2019-02-16 10:17 | PN ---
[facility] CIWA - CIWA Score Nausea/Vomitin-Mild Nausea/No Vomiting Muscle Tremors: 3 Anxiety: 2 Agitation: 2 Paroxysmal Sweats: 1-Minimal Palms Moist Orientation: 0-Oriented Tacttile Disturbances: 0-None Auditory Disturbances: 1-Very Mild Visual Disturbances: 0-None Headache: 0-None Present CIWA-Ar Total Score: 10 [facility] Progress Note (SOAP) Subjective: doing well with librium detox regimen received suboxone feeling better today less tremor mild nausea Objective: 02/16/19 10:16 Vital Signs Temperature 97.6 F 02/15/19 21:00 Pulse Rate 70 02/15/19 21:00 Respiratory Rate 18 02/16/19 06:30 Blood Pressure 133/83 02/15/19 21:00 O2 Sat by Pulse Oximetry (%) Laboratory Last Values WBC 7.4 K/mm3 (4.0-10.0) 02/15/19 08:10 RBC 4.01 M/mm3 (4.00-5.60) 02/15/19 08:10 Hgb 12.1 GM/dL (11.7-16.9) 02/15/19 08:10 Hct 34.8 % (35.4-49) L 02/15/19 08:10 MCV 86.7 fl (80-96) 02/15/19 08:10 MCH 30.2 pg (25.7-33.7) 02/15/19 08:10 MCHC 34.9 g/dl (32.0-35.9) 02/15/19 08:10 RDW 13.7 % (11.9-15.9) 02/15/19 08:10 Plt Count 227 K/MM3 (134-434) 02/15/19 08:10 MPV 9.0 fl (7.5-11.1) 02/15/19 08:10 Sodium 143 mmol/L (136-145) 02/15/19 08:10 Potassium 3.9 mmol/L (3.5-5.1) 02/15/19 08:10 Chloride 108 mmol/L (98-107) H 02/15/19 08:10 Carbon Dioxide 30 mmol/L (21-32) 02/15/19 08:10 Anion Gap 5 MMOL/L (8-16) L 02/15/19 08:10 BUN 16.5 mg/dL (7-18) 02/15/19 08:10 Creatinine 0.9 mg/dL (0.55-1.3) 02/15/19 08:10 Est GFR (CKD-EPI)AfAm 125.13 02/15/19 08:10 Est GFR (CKD-EPI)NonAf 107.97 02/15/19 08:10 Random Glucose 85 mg/dL (74-106) 02/15/19 08:10 Calcium 8.7 mg/dL (8.5-10.1) 02/15/19 08:10 Total Bilirubin 0.3 mg/dL (0.2-1) 02/15/19 08:10 AST 14 U/L (15-37) L 02/15/19 08:10 ALT 21 U/L (13-61) 02/15/19 08:10 Alkaline Phosphatase 89 U/L (45-117) 02/15/19 08:10 Total Protein 6.1 g/dl (6.4-8.2) L 02/15/19 08:10 Albumin 3.4 g/dl (3.4-5.0) 02/15/19 08:10 RPR Titer Nonreactive (NONREACTIVE) 02/15/19 08:10 lab noted Assessment: 02/16/19 10:16 alcohol withdrawal sx Plan: continue librium detox regimen continue suboxone maintenance dosage
[2019-02-16] MEDS: QUEtiapine FUMARATE 100 MG TABLET (FP) PO SCH (22:14)
[2019-02-16] MEDS: MELATONIN 5 MG TABLETS PO PRN (22:14)
[2019-02-16] MEDS: THIAMINE HCL 100 MG TABLET (FP) PO SCH (22:14)
[2019-02-16] MEDS: NICOTINE POLACRILEX 2 MG GUM BUC PRN (22:16)
[2019-02-17] MEDS ORDERED: chlordiazePOXIDE HCL 10 MG CAPSULE PO PRN
[2019-02-17] MEDS: chlordiazePOXIDE HCL 10 MG CAPSULE PO SCH ×4 (05:32→21:59)
[2019-02-17] MEDS: BUPRENORPHINE/NALOXONE 8 MG/2 MG FILM PACKET SL SCH (10:26)
[2019-02-17] MEDS: NICOTINE 14 MG/24 HOURS TOPICAL PATCH TD SCH (10:27)
[2019-02-17] MEDS: PRENATAL VITAMINS W/ FOLIC ACID TABLET (FP) PO SCH (10:27)
--- NOTE | 2019-02-17 14:45 | PN ---
S CIWA - CIWA Score Nausea/Vomitin-No Nausea/No Vomiting Muscle Tremors: 2 Anxiety: 4-Mod. Anxious/Guarded Agitation: 0-Normal Activity Paroxysmal Sweats: No Perspiration Orientation: 0-Oriented Tacttile Disturbances: 1-Very Mild Itch/Numbness Auditory Disturbances: 0-None Visual Disturbances: 2-Mild Sensitivity Headache: 0-None Present CIWA-Ar Total Score: 9 [facility] Progress Note (SOAP) Subjective: Anxious, Fatigue, Tremors. Objective: PATIENT A & O X 3, OBSERVED AMBULATING ON DETOX UNIT UNASSISTED. IN NO ACUTE DISTRESS. 02/17/19 14:44 Vital Signs Temperature 99.2 F 02/17/19 13:12 Pulse Rate 79 02/17/19 13:12 Respiratory Rate 18 02/17/19 13:12 Blood Pressure 127/67 02/17/19 13:12 O2 Sat by Pulse Oximetry (%) Laboratory Tests 02/15/19 02/15/19 02/15/19 08:10 08:10 08:10 WBC 7.4 RBC 4.01 Hgb 12.1 Hct 34.8 L MCV 86.7 MCH 30.2 MCHC 34.9 RDW 13.7 Plt Count 227 MPV 9.0 Sodium 143 Potassium 3.9 Chloride 108 H Carbon Dioxide 30 Anion Gap 5 L BUN 16.5 Creatinine 0.9 Est GFR (CKD-EPI)AfAm 125.13 Est GFR (CKD-EPI)NonAf 107.97 Random Glucose 85 Calcium 8.7 Total Bilirubin 0.3 AST 14 L ALT 21 Alkaline Phosphatase 89 Total Protein 6.1 L Albumin 3.4 RPR Titer Nonreactive LABS NOTED. Assessment: 02/17/19 14:44 WITHDRAWAL SYMPTOMS. Plan: CONTINUE DETOX.
--- NOTE | 2019-02-17 16:46 | PN ---
[facility] Progress Note Note: Patient c/that suboxone dose is less than what was prescribed. Patient very upset. 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 Patient Name: Devan Petersen Date: 1980 Address: [address] [place] [address] [place] [address] Sex: Male Rx Written Rx Dispensed Drug Quantity Days Supply Prescriber Name 12/30/2018 12/31/2018 buprenorphine-naloxone 8-2 mg sl film 45 30 Kirstie Hitchcock MD 08/22/2018 08/23/2018 buprenorphine-naloxone 8-2 mg sl film 42 14 Alvarado Pérez Jr, MD Informed patient that an additional 4 mg Suboxone would be ordered. Patient quieted down and became more amenable. Patient asked that I call [facility]. I spoke w/ [facility], who states that patient was last seen on 02/13 and that a new referral, with insurance information, demographics, [id number] would have to be re- submitted to them. I spoke w/ Ms. Medrano, the counselor, and provided her the information for the needed referral, who then met w/ patient. Patient states he wants to do rehab at [facility].
[2019-02-17] MEDS: BUPRENORPHINE/NALOXONE 4 MG/1 MG FILM PACKET SL SCH (17:55)
[2019-02-17] MEDS: METHOCARBAMOL 500 MG TABLET PO PRN (17:57)
[2019-02-17] MEDS: NICOTINE POLACRILEX 2 MG GUM BUC PRN ×2 (18:44→21:40)
[2019-02-17] MEDS: QUEtiapine FUMARATE 100 MG TABLET (FP) PO SCH (21:58)
[2019-02-17] MEDS: MELATONIN 5 MG TABLETS PO PRN (21:58)
[2019-02-17] MEDS: THIAMINE HCL 100 MG TABLET (FP) PO SCH (21:58)
[2019-02-18] MEDS: chlordiazePOXIDE HCL 10 MG CAPSULE PO SCH ×2 (05:26→17:24)
[2019-02-18] MEDS: BUPRENORPHINE/NALOXONE 8 MG/2 MG FILM PACKET SL SCH (09:45)
[2019-02-18] MEDS: PRENATAL VITAMINS W/ FOLIC ACID TABLET (FP) PO SCH (09:45)
[2019-02-18] MEDS: METHOCARBAMOL 500 MG TABLET PO PRN ×2 (09:46→22:05)
[2019-02-18] MEDS: NICOTINE 14 MG/24 HOURS TOPICAL PATCH TD SCH (09:46)
[2019-02-18] MEDS: NICOTINE POLACRILEX 2 MG GUM BUC PRN ×2 (09:48→22:06)
[2019-02-18] MEDS: hydrOXYzine PAMOATE 25 MG CAPSULE (FP) PO PRN ×2 (14:22→22:05)
--- NOTE | 2019-02-18 15:45 | PN ---
S CIWA - CIWA Score Nausea/Vomitin-No Nausea/No Vomiting Muscle Tremors: None Anxiety: 2 Agitation: 0-Normal Activity Paroxysmal Sweats: No Perspiration Orientation: 0-Oriented Tacttile Disturbances: 0-None Auditory Disturbances: 0-None Visual Disturbances: 2-Mild Sensitivity Headache: 0-None Present CIWA-Ar Total Score: 4 [facility] Progress Note (SOAP) Subjective: Fatigue. Objective: PATIENT A & O X 3, OBSERVED AMBULATING ON DETOX UNIT UNASSISTED. IN NO ACUTE DISTRESS. 02/18/19 15:42 Vital Signs Temperature 98.5 F 02/18/19 13:31 Pulse Rate 75 02/18/19 13:31 Respiratory Rate 18 02/18/19 13:31 Blood Pressure 144/91 02/18/19 13:31 O2 Sat by Pulse Oximetry (%) Laboratory Tests 02/15/19 02/15/19 02/15/19 08:10 08:10 08:10 WBC 7.4 RBC 4.01 Hgb 12.1 Hct 34.8 L MCV 86.7 MCH 30.2 MCHC 34.9 RDW 13.7 Plt Count 227 MPV 9.0 Sodium 143 Potassium 3.9 Chloride 108 H Carbon Dioxide 30 Anion Gap 5 L BUN 16.5 Creatinine 0.9 Est GFR (CKD-EPI)AfAm 125.13 Est GFR (CKD-EPI)NonAf 107.97 Random Glucose 85 Calcium 8.7 Total Bilirubin 0.3 AST 14 L ALT 21 Alkaline Phosphatase 89 Total Protein 6.1 L Albumin 3.4 RPR Titer Nonreactive LABS NOTED. Assessment: 02/18/19 15:43 WITHDRAWAL SYMPTOMS Plan: CONTINUE DETOX. PATIENT SCHEDULED FOR D/C FROM DETOX UNIT TOMORROW.
[2019-02-18] MEDS: BUPRENORPHINE/NALOXONE 4 MG/1 MG FILM PACKET SL SCH (17:24)
[2019-02-18] MEDS: THIAMINE HCL 100 MG TABLET (FP) PO SCH (22:05)
[2019-02-18] MEDS: MELATONIN 5 MG TABLETS PO PRN (22:05)
[2019-02-18] MEDS: QUEtiapine FUMARATE 100 MG TABLET (FP) PO SCH (22:05)
[2019-02-19] MEDS ORDERED: chlordiazePOXIDE HCL 10 MG CAPSULE PO ONE (05:00)
[2019-02-19 06:08] VITALS: BP 129/68; PULSE 73; TEMP 97.3
--- NOTE | 2019-02-19 08:45 | DS ---
[facility] Detox Discharge Summary Admission Date: 02/14/19 Discharge Date: 02/19/19 - History Present History: Alcohol Dependence Pertinent Past History: Vital Signs Temperature 97.3 F L 02/19/19 06:07 Pulse Rate 73 02/19/19 06:07 Respiratory Rate 18 02/19/19 06:07 Blood Pressure 129/68 02/19/19 06:07 O2 Sat by Pulse Oximetry (%) Laboratory Last Values WBC 7.4 K/mm3 (4.0-10.0) 02/15/19 08:10 RBC 4.01 M/mm3 (4.00-5.60) 02/15/19 08:10 Hgb 12.1 GM/dL (11.7-16.9) 02/15/19 08:10 Hct 34.8 % (35.4-49) L 02/15/19 08:10 MCV 86.7 fl (80-96) 02/15/19 08:10 MCH 30.2 pg (25.7-33.7) 02/15/19 08:10 MCHC 34.9 g/dl (32.0-35.9) 02/15/19 08:10 RDW 13.7 % (11.9-15.9) 02/15/19 08:10 Plt Count 227 K/MM3 (134-434) 02/15/19 08:10 MPV 9.0 fl (7.5-11.1) 02/15/19 08:10 Sodium 143 mmol/L (136-145) 02/15/19 08:10 Potassium 3.9 mmol/L (3.5-5.1) 02/15/19 08:10 Chloride 108 mmol/L (98-107) H 02/15/19 08:10 Carbon Dioxide 30 mmol/L (21-32) 02/15/19 08:10 Anion Gap 5 MMOL/L (8-16) L 02/15/19 08:10 BUN 16.5 mg/dL (7-18) 02/15/19 08:10 Creatinine 0.9 mg/dL (0.55-1.3) 02/15/19 08:10 Est GFR (CKD-EPI)AfAm 125.13 02/15/19 08:10 Est GFR (CKD-EPI)NonAf 107.97 02/15/19 08:10 Random Glucose 85 mg/dL (74-106) 02/15/19 08:10 Calcium 8.7 mg/dL (8.5-10.1) 02/15/19 08:10 Total Bilirubin 0.3 mg/dL (0.2-1) 02/15/19 08:10 AST 14 U/L (15-37) L 02/15/19 08:10 ALT 21 U/L (13-61) 02/15/19 08:10 Alkaline Phosphatase 89 U/L (45-117) 02/15/19 08:10 Total Protein 6.1 g/dl (6.4-8.2) L 02/15/19 08:10 Albumin 3.4 g/dl (3.4-5.0) 02/15/19 08:10 RPR Titer Nonreactive (NONREACTIVE) 02/15/19 08:10 - Physical Exam Results Vital Signs: Vital Signs Temperature 97.3 F L 02/19/19 06:07 Pulse Rate 73 02/19/19 06:07 Respiratory Rate 18 02/19/19 06:07 Blood Pressure 129/68 02/19/19 06:07 O2 Sat by Pulse Oximetry (%) Pertinent Admission Physical Exam Findings: Vital Signs Temperature 97.3 F L 02/19/19 06:07 Pulse Rate 73 02/19/19 06:07 Respiratory Rate 18 02/19/19 06:07 Blood Pressure 129/68 02/19/19 06:07 O2 Sat by Pulse Oximetry (%) Laboratory Last Values WBC 7.4 K/mm3 (4.0-10.0) 02/15/19 08:10 RBC 4.01 M/mm3 (4.00-5.60) 02/15/19 08:10 Hgb 12.1 GM/dL (11.7-16.9) 02/15/19 08:10 Hct 34.8 % (35.4-49) L 02/15/19 08:10 MCV 86.7 fl (80-96) 02/15/19 08:10 MCH 30.2 pg (25.7-33.7) 02/15/19 08:10 MCHC 34.9 g/dl (32.0-35.9) 02/15/19 08:10 RDW 13.7 % (11.9-15.9) 02/15/19 08:10 Plt Count 227 K/MM3 (134-434) 02/15/19 08:10 MPV 9.0 fl (7.5-11.1) 02/15/19 08:10 Sodium 143 mmol/L (136-145) 02/15/19 08:10 Potassium 3.9 mmol/L (3.5-5.1) 02/15/19 08:10 Chloride 108 mmol/L (98-107) H 02/15/19 08:10 Carbon Dioxide 30 mmol/L (21-32) 02/15/19 08:10 Anion Gap 5 MMOL/L (8-16) L 02/15/19 08:10 BUN 16.5 mg/dL (7-18) 02/15/19 08:10 Creatinine 0.9 mg/dL (0.55-1.3) 02/15/19 08:10 Est GFR (CKD-EPI)AfAm 125.13 02/15/19 08:10 Est GFR (CKD-EPI)NonAf 107.97 02/15/19 08:10 Random Glucose 85 mg/dL (74-106) 02/15/19 08:10 Calcium 8.7 mg/dL (8.5-10.1) 02/15/19 08:10 Total Bilirubin 0.3 mg/dL (0.2-1) 02/15/19 08:10 AST 14 U/L (15-37) L 02/15/19 08:10 ALT 21 U/L (13-61) 02/15/19 08:10 Alkaline Phosphatase 89 U/L (45-117) 02/15/19 08:10 Total Protein 6.1 g/dl (6.4-8.2) L 02/15/19 08:10 Albumin 3.4 g/dl (3.4-5.0) 02/15/19 08:10 RPR Titer Nonreactive (NONREACTIVE) 02/15/19 08:10 - Treatment Hospital Course: Detox Protocol Followed, Detoxed Safely, Responded well, Discharged Condition Good Patient has Accepted a Rehab Referral to: Out Patient referral - Medication Discharge Medications: Ambulatory Orders Buprenorphine HCl/Naloxone HCl [Buprenorp-Nalox 4-1 mg Sl Film] 1 strip SL DAILY @2100 01/08/19 Methocarbamol [Robaxin-750] 750 mg PO BID 5 Days #10 tablet 01/18/19 - Diagnosis (1) Alcohol dependence with uncomplicated withdrawal Status: Acute (2) Asthma Status: Chronic Qualifiers: Asthma severity: mild Asthma persistence: intermittent Asthma complication type: with status asthmaticus Qualified Code(s): J45.22 - Mild intermittent asthma with status asthmaticus (3) Cocaine dependence Status: Chronic Qualifiers: Substance use status: uncomplicated Qualified Code(s): F14.20 - Cocaine dependence, uncomplicated (4) HTN (hypertension) Status: Chronic Qualifiers: Hypertension type: essential hypertension Qualified Code(s): I10 - Essential (primary) hypertension (5) Nicotine dependence Status: Chronic Qualifiers: Nicotine product type: cigarettes - AMA Did Patient Leave Against Medical Advice: No
== END 2019-02-19 07:08 | disposition home or self-care (01) | DRG 773 ==
LOC: YASAS 12:20 → Y3N 17:53
PROVIDERS: ADMIT Allergy & Immunology; ATTEND Allergy & Immunology
PROC: HZ2ZZZZ Detoxification Services for Substance Abuse Treatment (ICD-10-PCS; principal; 2019-02-14)
DX: F10.230 Alcohol dependence with withdrawal, uncomplicated (principal); F11.20 Opioid dependence, uncomplicated; F14.20 Cocaine dependence, uncomplicated; F12.20 Cannabis dependence, uncomplicated; F17.210 Nicotine dependence, cigarettes, uncomplicated; F25.9 Schizoaffective disorder, unspecified; I10 Essential (primary) hypertension; J45.22 Mild intermittent asthma with status asthmaticus; Z91.018 Allergy to other foods
CPT/HCPCS: 36415; 80053; 85027; 86593

== ENCOUNTER 2019-02-27 19:30 | Emergency (ER) | payer OTHER ==
[2019-02-27 19:34] VITALS: BP 117/79; TEMP 98; BMI 35.2
[2019-02-27 23:06] LABS: BASO % 0.7 % (0-2.0); HEMATOCRIT 38.8 % (35.4-49); LYMPH % 21.8 % (8-40); MCH 29.6 pg (25.7-33.7); MCHC 33.4 g/dl (32.0-35.9); MEAN CELL VOLUME 88.6 fl (80-96); MEAN PLT VOLUME 8.5 fl (7.5-11.1); MONO % 10.7 % (3.8-10.2); NEUT % 64.8 % (42.8-82.8); PLATELET COUNT 257 K/MM3 (134-434); RBC 4.38 M/mm3 (4.00-5.60); RDW 14.2 % (11.9-15.9); WHITE BLOOD COUNT 9.9 K/mm3 (4.0-10.0)
[2019-02-27 23:33] LABS: ALBUMIN 3.9 g/dl (3.4-5.0); BILIRUBIN,TOTAL 0.3 mg/dL (0.2-1); BLOOD UREA NITROGEN 13.8 mg/dL (7-18); CALCIUM 8.9 mg/dL (8.5-10.1); CREATININE 1.1 mg/dL (0.55-1.3); POTASSIUM 3.7 mmol/L (3.5-5.1)
--- NOTE | 2019-02-28 00:31 | PDOC ---
History of Present Illness - General Chief Complaint: Respiratory Stated Complaint: COUGH Time Seen by Provider: 02/27/19 20:14 History Source: Patient Exam Limitations: No Limitations Past History - Past Medical History Allergies/Adverse Reactions: Allergies Allergy/AdvReac Type Severity Reaction Status Date / Time Pork/Porcine Containing Allergy Severe Rash Verified 02/27/19 19:34 Products No Known Drug Allergies Allergy Verified 02/27/19 19:34 Home Medications: Ambulatory Orders Buprenorphine HCl/Naloxone HCl [Buprenorp-Nalox 4-1 mg Sl Film] 8 mg SL BID Quetiapine Fumarate [Seroquel -] 250 mg PO HS 02/25/19 Anemia: No Asthma: Yes (on albuterol inhaler) Cancer: No Cardiac Disorders: No CVA: No COPD: No CHF: No Dementia: No Diabetes: No GI Disorders: No Disorders: No HTN: Yes Hypercholesterolemia: No Kidney Stones: No Liver Disease: No Psychiatric Problems: Yes (BIPOLAR; MIGRAINE;SCHIZOAFFECTIVEDISORDER) Seizures: No Thyroid Disease: No - Surgical History Abdominal Surgery: No Appendectomy: Yes (2005) Cardiac Surgery: No Cholecystectomy: No Gastric Stapling: No GI Surgery: No Lung Surgery: No Neurologic Surgery: No Orthopedic Surgery: No - Reproductive History Testicular Surgery: No - Immunization History Immunization Up to Date: Yes - Psycho Social/Smoking Cessation Hx Smoking History: Never smoked Have you smoked in the past 12 months: Yes Number of Cigarettes Smoked Daily: 10 Cigars Per Day: 0 'Breaking Loose' booklet given: 02/25/19 Hx Alcohol Use: Yes Drug/Substance Use Hx: Yes Substance Use Type: Alcohol, Cocaine, Heroin, Marijuana, Opiates Hx Substance Use Treatment: Yes (detox, rehab, Currently on Suboxone) Cardiac Specific PMH - Complaint Specific PMHX Pacemaker: No *Physical Exam - Vital Signs Last Vital Signs Temp Pulse Resp BP Pulse Ox 98.0 F 114 H 20 117/79 100 02/27/19 19:31 02/27/19 19:31 02/27/19 19:31 02/27/19 19:31 02/27/19 19:31 - Physical Exam General Appearance: No: Apparent Distress HEENT: positive: Normal ENT Inspection, Normal Voice. negative: Muffled/Hoarse voice, Pharyngeal Erythema, Tonsillar Exudate, Tonsillar Erythema Respiratory/Chest: positive: Lungs Clear, Normal Breath Sounds. negative: Respiratory Distress Cardiovascular: positive: Regular Rhythm, Regular Rate, S1, S2. negative: Murmur Gastrointestinal/Abdominal: positive: Normal Bowel Sounds, Soft. negative: Tender, Distended, Guarding, Rebound Extremity: negative: Pedal Edema, Swelling, Calf Tenderness Neurologic: positive: Alert, Normal Mood/Affect Heart Score/ECG Review - History History: Slightly suspicious - Electrocardiogram EKG: Normal - Age Age: </= 45 - Risk Factors Risk Factors Heart Score: Yes Smoking History Based on the list above the patient has:: 1-2 risk factors - Troponin Troponin: </= normal limit - Score Heart Score - Total: 1 ED Treatment Course - LABORATORY CBC & Chemistry Diagram: 02/27/19 22:00 02/27/19 22:00 - ADDITIONAL ORDERS Additional order review: Laboratory Results 02/27/19 02/27/19 22:00 22:00 Sodium 141 Potassium 3.7 Chloride 107 Carbon Dioxide 27 Anion Gap 7 L BUN 13.8 Creatinine 1.1 Est GFR (CKD-EPI)AfAm 98.18 Est GFR (CKD-EPI)NonAf 84.71 Random Glucose 87 Calcium 8.9 Total Bilirubin 0.3 AST 15 ALT 25 Alkaline Phosphatase 102 Troponin I < 0.02 Total Protein 7.0 Albumin 3.9 02/27/19 22:00 RBC 4.38 MCV 88.6 MCHC 33.4 RDW 14.2 MPV 8.5 Neutrophils % 64.8 Lymphocytes % 21.8 D Monocytes % 10.7 H Eosinophils % 2.0 D Basophils % 0.7 - RADIOLOGY Radiology Studies Ordered: Category Date Time Status CHEST PA & LAT [RAD] Stat Radiology 02/27/19 21:13 Completed Medical Decision Making - Medical Decision Making 38-year-old male with history of asthma and arthritis presents with right-sided chest tightness for 2 days along with mild dry cough, runny nose, congestion, mild throat pain. Patient mentions he also smokes cigarettes (around 4 to 5 cigarettes a day for 10 years) and has been using cocaine for the past 4 years ( last used today). Patient expresses interest in going to rehab. Denies fevers , abdominal pain, vomiting, diarrhea, calf pain. Denies recent travel. EKG shows NSR at 95 bpm, no STT changes Chest x-ray is negative Labs reviewed Troponin negative Heart score is 1 Repeat HR was 98 Patient with no risk factors for PE Patient given information for rehab Patient states he already knows a rehab center that he wants to go to formerly [facility] for [facility] 02/28/19 00:24 Discharge - Discharge Information Problems reviewed: Yes Clinical Impression/Diagnosis: Chest pain Qualifiers: Chest pain type: unspecified Qualified Code(s): R07.9 - Chest pain, unspecified Condition: Stable Disposition: HOME - Admission No - Additional Discharge Information Prescription Drug Monitoring Program (I-STOP) results: I-STOP not reviewed - Follow up/Referral Referrals: Adelaida Manzanares MD [Primary Care Provider] - 2 Days - Patient Discharge Instructions Patient Printed Discharge Instructions: DI for Chest Pain Additional Instructions: Thank you for choosing [facility]. It was a pleasure taking care of you. Your EKG and labs were normal here Recommend quitting smoking and using cocaine You may also go for rehab at: [address] [place] [address] Return to the Emergency Department if your symptoms worsen or persist, you have fever, shortness of breath, chest pain, severe abdominal pain, vomiting or other concerning symptoms. - Post Discharge Activity
[2019-02-28 00:36] VITALS: PULSE 98
--- NOTE | 2019-02-28 01:04 | PDOC ---
*Physical Exam - Vital Signs Last Vital Signs Temp Pulse Resp BP Pulse Ox 98.0 F 98 H 20 117/79 100 02/27/19 19:31 02/28/19 00:35 02/27/19 19:31 02/27/19 19:31 02/27/19 19:31 ED Treatment Course - LABORATORY CBC & Chemistry Diagram: 02/27/19 22:00 02/27/19 22:00 - ADDITIONAL ORDERS Additional order review: Laboratory Results 02/27/19 02/27/19 22:00 22:00 Sodium 141 Potassium 3.7 Chloride 107 Carbon Dioxide 27 Anion Gap 7 L BUN 13.8 Creatinine 1.1 Est GFR (CKD-EPI)AfAm 98.18 Est GFR (CKD-EPI)NonAf 84.71 Random Glucose 87 Calcium 8.9 Total Bilirubin 0.3 AST 15 ALT 25 Alkaline Phosphatase 102 Troponin I < 0.02 Total Protein 7.0 Albumin 3.9 02/27/19 22:00 RBC 4.38 MCV 88.6 MCHC 33.4 RDW 14.2 MPV 8.5 Neutrophils % 64.8 Lymphocytes % 21.8 D Monocytes % 10.7 H Eosinophils % 2.0 D Basophils % 0.7 Medical Decision Making - Medical Decision Making 02/28/19 01:03 Case reviewed, agree with assessment and plan Discharge - Discharge Information Problems reviewed: Yes Clinical Impression/Diagnosis: Chest pain Qualifiers: Chest pain type: unspecified Qualified Code(s): R07.9 - Chest pain, unspecified Condition: Stable Disposition: HOME - Follow up/Referral Referrals: Adelaida Manzanares MD [Primary Care Provider] - 2 Days - Patient Discharge Instructions Patient Printed Discharge Instructions: DI for Chest Pain Additional Instructions: Thank you for choosing [facility]. It was a pleasure taking care of you. Your EKG and labs were normal here Recommend quitting smoking and using cocaine You may also go for rehab at: [address] [place] [address] Return to the Emergency Department if your symptoms worsen or persist, you have fever, shortness of breath, chest pain, severe abdominal pain, vomiting or other concerning symptoms. - Post Discharge Activity
--- NOTE | 2019-02-28 12:47 | EKG ---
Test Reason : Blood Pressure : / mmHG Vent. Rate : 095 BPM Atrial Rate : 095 BPM P-R Int : 152 ms QRS Dur : 086 ms QT Int : 358 ms P-R-T Axes : 059 041 057 degrees QTc Int : 449 ms NORMAL SINUS RHYTHM NORMAL ECG WHEN COMPARED WITH ECG OF 08-JAN-2019 10:29, NO SIGNIFICANT CHANGE WAS FOUND Confirmed by SUNDEEP SANTIAGO MD ([id number]) on 02/28/2019 12:46:36 PM Referred By: Confirmed By:SUNDEEP SANTIAGO MD
== END 2019-02-28 00:36 | disposition home or self-care (01) ==
LOC: JER 19:30 → JERFT 19:30 → JER 02-28 00:36
DX: R07.9 Chest pain, unspecified (principal); F17.210 Nicotine dependence, cigarettes, uncomplicated; I10 Essential (primary) hypertension; F14.10 Cocaine abuse, uncomplicated; J45.909 Unspecified asthma, uncomplicated; F31.9 Bipolar disorder, unspecified; F25.9 Schizoaffective disorder, unspecified; Z91.018 Allergy to other foods
CPT/HCPCS: 36415; 71046-TC-FY; 80053; 84484; 85025; 93005; 93010; 99282-25

== ENCOUNTER 2019-06-06 13:40 | Inpatient (IN) | payer OTHER ==
[2019-06-06 14:02] VITALS: BMI 44.7
--- NOTE | 2019-06-06 17:26 | HP ---
"CIWA Score Nausea/Vomitin-No Nausea/No Vomiting Muscle Tremors: None Anxiety: 1-Mildly Anxious Agitation: 0-Normal Activity Paroxysmal Sweats: No Perspiration Orientation: 1-Uncertain about Date Tacttile Disturbances: 0-None Auditory Disturbances: 0-None Visual Disturbances: 0-None Headache: 0-None Present CIWA-Ar Total Score: 2 - Admission Criteria OASAS Guidelines: Admission for Medically Managed Detox: Requires at least one of the followin. CIWA greater than 12 2. Seizures within the past 24 hours 3. Delirium tremens within the past 24 hours 4. Hallucinations within the past 24 hours 5. Acute intervention needed for co occurring medical disorder 6. Acute intervention needed for co occurring psychiatric disorder 7. Severe withdrawal that cannot be handled at a lower level of care (continued vomiting, continued diarrhea, abnormal vital signs) requiring intravenous medication and/or fluids 8. Admitting History and Physical - Smoking History Smoking history: Never smoked Have you smoked in the past 12 months: Yes Aproximately how many cigarettes per day: 10 - Alcohol/Substance Use Hx Alcohol Use: Yes Admission [facility] Allergies/Adverse Reactions: Allergies Allergy/AdvReac Type Severity Reaction Status Date / Time Pork/Porcine Containing Allergy Severe Rash Verified 06/06/19 13:55 Products No Known Drug Allergies Allergy Verified 06/06/19 13:55 History of Present Illness: pt here requesting rehab from etoh use , reports he completed detox @ [facility] 2 days ago , no paperwork available. cocaine : 2 -3 bags /day via inhalation tobacco : denies cannabis : denies in buprenorphine program , latest taken today 1 film PMHX : denies PSHX : denies PSYch : depression,SAD past suicide attempt ago 10 yrs ago w/ pills , denies current SI / HI SHx : denies legal issues , lives w/ fiancee This report was requested by: Abbi Anderson | Reference #: [id number] Others' Prescriptions Patient Name: Devan Petersen Date: 1980 Address: [address] [place] [address] [id number] [place] [id number] Sex: Male Rx Written Rx Dispensed Drug Quantity Days Supply Prescriber Name 06/04/2019 06/05/2019 buprenorphine-naloxone 12-3 mg sl film 14 7 Cuong Weiss () Patient Name: Devan Walter Date: 1980 Address: [address] [place], [place] [id number] Sex: Male Rx Written Rx Dispensed Drug Quantity Days Supply Prescriber Name 03/23/2019 03/23/2019 chlordiazepoxide 25 mg capsule 18 3 Murphy Zayas Patient Name: Devan Ocampo Date: 1980 Address: [address] [place] [address] [place] [address] Sex: Male Rx Written Rx Dispensed Drug Quantity Days Supply Prescriber Name 03/20/2019 03/21/2019 buprenorphine-naloxone 8-2 mg sl film 15 15 Thomas Abbie 07/16/2018 07/16/2018 tramadol hcl 50 mg tablet 20 5 Yrn Cavazos Jr 07/11/2018 07/11/2018 oxycodone-acetaminophen 5-325 mg tablet 15 3 Morelia Urbano MD Patient Name: Devan Peetrsen Date: 1980 Address: [address] [place] [address] [place] [id number] Sex: Male Rx Written Rx Dispensed Drug Quantity Days Supply Prescriber Name 12/30/2018 12/31/2018 buprenorphine-naloxone 8-2 mg sl film 45 30 Kirstie Hitchcock MD 08/22/2018 08/23/2018 buprenorphine-naloxone 8-2 mg sl film 42 14 Alvarado Pérez Jr, MD Patient Name: Devan Petersen Date: 1980 Address: [address] [place] [address] [address] [address] Sex: Male Rx Written Rx Dispensed Drug Quantity Days Supply Prescriber Name 08/16/2018 08/16/2018 buprenorphine-naloxone 8-2 mg sl film 10 5 Clemencia Culp NP Patient Name: Devan Walter Date: 1980 Address: [address] [place] [address] Sex: Male Rx Written Rx Dispensed Drug Quantity Days Supply Prescriber Name 08/09/2018 08/09/2018 buprenorphine-naloxone 8-2 mg sl tablet 16 8 Gatito Sands MD Exam Limitations: Clinical Condition - Ebola screening Have you traveled outside of the country in the last 21 days: No Have you had contact with anyone from an Ebola affected area: No Do you have a fever: No - Review of Systems Constitutional: No Symptoms Reported EENT: reports: No Symptoms Reported Respiratory: reports: No Symptoms reported Cardiac: reports: No Symptoms Reported GI: reports: No Symptoms Reported : reports: No Symptoms Reported Musculoskeletal: reports: No Symptoms Reported Integumentary: reports: No Symptoms Reported Neuro: reports: No Symptoms reported Endocrine: reports: No Symptoms Reported Psychiatric: reports: Depressed Patient History - Patient Medical History Hx Anemia: No Hx Asthma: Yes (on albuterol inhaler) Hx Chronic Obstructive Pulmonary Disease (COPD): No Hx Cancer: No Hx Cardiac Disorders: No Hx Congestive Heart Failure: No Hx Hypertension: Yes Hx Hypercholesterolemia: No Hx Pacemaker: No HX Cerebrovascular Accident: No Hx Seizures: No Hx Dementia: No Hx Diabetes: No Hx Gastrointestinal Disorders: No Hx Liver Disease: No Hx Genitourinary Disorders: No Hx Sexually Transmitted Disorders: No Hx Renal Disease (ESRD): No Hx Thyroid Disease: No Hx Human Immunodeficiency Virus (HIV): No (last 07/02 negative) Hx Hepatitis C: No Hx Depression: Yes (AND ANXIETY) Hx Suicide Attempt: Yes (02/28- OVERDOSE. ADMITTED TO [facility].) Hx Bipolar Disorder: No Hx Schizophrenia: Yes - Patient Surgical History Past Surgical History: Yes Hx Neurologic Surgery: No Hx Cataract Extraction: No Hx Cardiac Surgery: No Hx Lung Surgery: No Hx Breast Surgery: No Hx Breast Biopsy: No Hx Abdominal Surgery: No Hx Appendectomy: Yes (2005) Hx Cholecystectomy: No Hx Genitourinary Surgery: No Hx Section: No Hx Orthopedic Surgery: No Hx Hysterectomy: No Anesthesia Reaction: No - PPD History Date: 06/27/18 Results: 0 mm. - Smoking Cessation Smoking history: Never smoked Have you smoked in the past 12 months: Yes Aproximately how many cigarettes per day: 10 Cigars Per Day: 0 Hx Chewing Tobacco Use: No - Substances abused Heroin Substance route: Inhalation Frequency: Daily Amount used: 2 bags Age of first use: 22 Date of last use: 06/02/19 Other Other (specify): PERCOCET Substance route: Oral Frequency: Daily Amount used: 2TABS Age of first use: 17 Date of last use: 05/29/19 Admission Physical Exam BHS - Vital Signs Vital Signs: Vital Signs - 24 hr 06/06/19 06/06/19 13:54 16:56 Temperature 98.2 F 98.2 F Pulse Rate 102 H 102 H Respiratory 19 19 Rate Blood Pressure 116/66 116/66 - Physical General Appearance: Yes: Mild Distress, Other (drowsy , states just took Seroquel earlier today) HEENTM: Yes: EOMI, Hearing grossly Normal, Normocephalic, Muffled/Hoarse Voice Respiratory: Yes: Chest Non-Tender, Lungs Clear, Normal Breath Sounds, No Respiratory Distress, No Accessory Muscle Use Neck: Yes: No masses,lesions,Nodules, Trachea in good position Cardiology: Yes: Regular Rhythm, Regular Rate, S1, S2 Abdominal: Yes: Soft, Protuberent Musculoskeletal: Yes: Gait Steady Extremities: Yes: Swelling (dat LE), Erythema (pedal) 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: Yes: Motor Strength 5/5, Normal Mood/Affect, Other (drowsy) Integumentary: Yes: Warm, Pitting Edema (dat LE) - Diagnostic (1) Alcohol use disorder, moderate, in early remission Current Visit: Yes Status: Acute (2) Cannabis dependence Current Visit: Yes Status: Chronic (3) Cocaine dependence Current Visit: No Status: Chronic Qualifiers: Substance use status: uncomplicated Qualified Code(s): F14.20 - Cocaine dependence, uncomplicated Breathalyzer - Breathalyzer Breathalyzer: 0 Urine Drug Screen - Test Device Lot number: [id number] Expiration date: 12/11/20 - Control Is test valid?: Yes - Results Drug screen NEGATIVE: No Urine drug screen results: THC-Marijuana, AGUSTINA-Cocaine, BUP-Suboxone Inpatient Rehab Admission - Rehab Decision to Admit Inpatient rehab admission?: Yes - Initial Determination Are CD services needed?: Yes Free of communicable disease: Yes Not in need of hospitalization: Yes - Rehab Admission Criteria Previous failed treatment: No Poor recovery environment: Yes Comorbidities: Yes Lacks judgement: Yes Patient is meeting Inpatient Rehab admission criteria:: Yes"
[2019-06-06] MEDS ORDERED: MAGNESIUM CITRATE 300 ML BOTTLE PO PRN (17:47)
[2019-06-06] MEDS ORDERED: MAGNESIUM HYDROX 2400MG/30ML ORAL SUSPENSION 30 ML CUP PO PRN (17:47)
[2019-06-06] MEDS ORDERED: MENTHOL/PHENOL 1 EACH UD MM PRN (17:47)
[2019-06-06] MEDS ORDERED: guaiFENesin 200 MG/10 ML 10 ML UNIT-DOSE CUPS PO PRN (17:47)
[2019-06-06] MEDS ORDERED: IBUPROFEN 400 MG TABLET (FP) PO PRN (17:47)
[2019-06-06] MEDS ORDERED: LOPERAMIDE HCL 2 MG CAPSULE PO PRN (17:47)
[2019-06-06] MEDS ORDERED: P-EPHED 60MG/TRIPROLIDI 2.5MG TABLET PO PRN (17:47)
[2019-06-06] MEDS ORDERED: ACETAMINOPHEN 325 MG TABLET (FP) PO PRN (17:47)
[2019-06-06] MEDS ORDERED: MAG HYDROX/AL HYDROX/SIMETH 30 ML UNIT-DOSE CUP PO PRN (17:47)
[2019-06-06] MEDS: BUPRENORPHINE HCL/NALOXONE 12 MG-3 MG SL FILM PACKET SL SCH (23:06)
[2019-06-06] MEDS: THIAMINE HCL 100 MG TABLET (FP) PO SCH (23:07)
[2019-06-07] MEDS: PRENATAL VITAMINS W/ FOLIC ACID TABLET (FP) PO SCH (09:17)
[2019-06-07] MEDS: BUPRENORPHINE HCL/NALOXONE 12 MG-3 MG SL FILM PACKET SL SCH ×2 (09:17→21:16)
[2019-06-07 11:14] LABS: HEMOGLOBIN 13.2 GM/dL (11.7-16.9); MCH 29.7 pg (25.7-33.7); MEAN CELL VOLUME 87.6 fl (80-96); MEAN PLT VOLUME 9.1 fl (7.5-11.1); PLATELET COUNT 227 K/MM3 (134-434); RBC 4.45 M/mm3 (4.00-5.60); RDW 14.3 % (11.9-15.9); WHITE BLOOD COUNT 8.2 K/mm3 (4.0-10.0)
[2019-06-07 11:21] LABS: ALBUMIN 3.6 g/dl (3.4-5.0); BILIRUBIN,TOTAL 0.3 mg/dL (0.2-1); BLOOD UREA NITROGEN 17.4 mg/dL (7-18); CALCIUM 8.8 mg/dL (8.5-10.1); CREATININE 0.9 mg/dL (0.55-1.3); POTASSIUM 4.3 mmol/L (3.5-5.1); TOT PROT 6.7 g/dl (6.4-8.2)
--- NOTE | 2019-06-07 11:51 | CONSULT ---
[facility] Psychiatric Consult - Data Date of interview: 06/07/19 Admission source: [facility] Identifying data: Patient is a 38 year old single male, without children, unemployed, currently homeless but is supported by [facility]. This is one of multiple admissions for patient. Patient admitted to for alcohol, cocaine, cannabis dependence. Substance Abuse History: Smoking Cessation. Smoking history: Never smoked. Have you smoked in the past 12 months: Yes. Aproximately how many cigarettes per day: 10. Cigars Per Day: 0. Hx Chewing Tobacco Use: No. - Substances abused. Heroin. Substance route: Inhalation. Frequency: Daily. Amount used: 2 bags. Age of first use: 22. Date of last use: 06/02/19. Other. Other (specify): PERCOCET. Substance route: Oral. Frequency: Daily. Amount used: 2TABS. Age of first use: 17. Date of last use: 05/29/19 Medical History: Asthma, hypertension, Appendectomy Psychiatric History: Patient unable to provide a clear psychiatric history. Mr. Petersen reports history of one psychiatric hospitalization one week ago at [facility]. Diagnosis of schizoaffective. States he was treated with seroquel. Patient reports past history of treatment with risperdal, invega, and seroquel. He denies history of suicide attempt and is not currently being provided with outpatient psychiatric care. As per previous notes patient has been treated with invega sustenna. He has also received OPD by Dr. Pérez at [facility] in [place], [place]. Previous note also mention history of one suicide attempt. At present patient denies auditory/visual hallucinations, suicidal/homicidal ideation. Physical/Sexual Abuse/Trauma History: denies. Mental Status Exam - Mental Status Exam Alert and Oriented to: Time, Place, Person Cognitive Function: Good Patient Appearance: Well Groomed Mood: Withdrawn Affect: Mood Congruent, Flat Patient Behavior: Guarded, Cooperative Speech Pattern: Clear Voice Loudness: Moderately Soft/Quiet Thought Process: Goal Oriented Thought Disorder: Present (Possibly internally preoccupied but willing to accept medication and is in good control.) Hallucinations: Denies Suicidal Ideation: Denies Homicidal Ideation: Denies Insight/Judgement: Poor Sleep: Poorly Appetite: Fair Muscle strength/Tone: Normal Gait/Station: Normal Psychiatric Findings - Problem List ([place] 1, 2,3) (1) Cannabis dependence Current Visit: Yes Status: Chronic (2) Cocaine dependence Current Visit: Yes Status: Chronic Qualifiers: Substance use status: uncomplicated Qualified Code(s): F14.20 - Cocaine dependence, uncomplicated (3) Opioid dependence on agonist therapy Current Visit: Yes Status: Chronic Comment: On Suboxone (4) Schizoaffective disorder Current Visit: Yes Status: Chronic (5) Substance-induced sleep disorder Current Visit: Yes Status: Acute (6) Alcohol use disorder Current Visit: Yes Status: Acute - Initial Treatment Plan Initial Treatment Plan: Psychoeducation provided. Rehab in progress. Will initiate treatment with Risperdal 1mg BID + Seroquel 50mg (patient's request for insomnia). Benfits and side effects discussed. Verbal consent given.
[2019-06-07] MEDS: risperiDONE 1 MG TABLET PO SCH ×2 (12:08→21:15)
[2019-06-07] MEDS: hydrOXYzine PAMOATE 50 MG CAPSULE (FP) PO PRN ×2 (12:08→21:16)
[2019-06-07] MEDS: NICOTINE POLACRILEX 4 MG GUM BUC PRN (15:56)
[2019-06-07] MEDS: NICOTINE 21 MG/24 HOURS TOPICAL PATCH TD SCH (15:56)
[2019-06-07] MEDS: QUEtiapine FUMARATE 50 MG TABLET PO SCH (21:15)
[2019-06-07] MEDS: MELATONIN 5 MG TABLETS PO PRN (21:16)
[2019-06-07] MEDS: THIAMINE HCL 100 MG TABLET (FP) PO SCH (21:16)
[2019-06-08] MEDS: NICOTINE POLACRILEX 4 MG GUM BUC PRN ×5 (06:31→21:59)
[2019-06-08] MEDS: NICOTINE 21 MG/24 HOURS TOPICAL PATCH TD SCH (10:10)
[2019-06-08] MEDS: PRENATAL VITAMINS W/ FOLIC ACID TABLET (FP) PO SCH (10:11)
[2019-06-08] MEDS: BUPRENORPHINE HCL/NALOXONE 12 MG-3 MG SL FILM PACKET SL SCH ×2 (10:11→21:12)
[2019-06-08] MEDS: risperiDONE 1 MG TABLET PO SCH ×2 (10:11→21:11)
[2019-06-08] MEDS: QUEtiapine FUMARATE 50 MG TABLET PO SCH (21:11)
[2019-06-08] MEDS: MELATONIN 5 MG TABLETS PO PRN (21:11)
[2019-06-08] MEDS: THIAMINE HCL 100 MG TABLET (FP) PO SCH (21:11)
[2019-06-08] MEDS: hydrOXYzine PAMOATE 50 MG CAPSULE (FP) PO PRN (21:11)
[2019-06-09] MEDS: NICOTINE POLACRILEX 4 MG GUM BUC PRN ×4 (06:45→21:31)
[2019-06-09] MEDS: risperiDONE 1 MG TABLET PO SCH ×2 (10:20→21:09)
[2019-06-09] MEDS: PRENATAL VITAMINS W/ FOLIC ACID TABLET (FP) PO SCH (10:20)
[2019-06-09] MEDS: NICOTINE 21 MG/24 HOURS TOPICAL PATCH TD SCH (10:20)
[2019-06-09] MEDS: BUPRENORPHINE HCL/NALOXONE 12 MG-3 MG SL FILM PACKET SL SCH ×2 (10:20→21:09)
--- NOTE | 2019-06-09 11:11 | PN ---
[facility] Progress Note Note: Pt is a 38 y/o male admitted to rehab through [facility] on 06/06/19 with a hx of alcohol use disorder and on suboxone MAT 12 mg/3 mg sl BID. Pt reports he was admitted to [facility] few weeks ago and then [facility] in [place] for a couple weeks before cominh to [facility] on 06/06/19. Pt has been asking to sign out from treatment pacing on hallways and requesting a 30 days supply of suboxone if he leaves today. Pt's last Rx dispensed date of Suboxone 12 mg/ 3mg sl film #14 /7 days was 06/05/19( See H/P for Prescription Monitoring Record). Pt states he does not have a clinic to continue treatment. Pt was seen over the weekend and this morning by counselor and has been told that [facility] referral will be made if he is willing to accept treatment so he can continue MAT at the location. [place] Suggested to pt he can also be referred to [facility] to continue with MAT. Informed pt we will not be providing him with Suboxone #30 films upon discharge/ signing out of treatment but will refer him appropriately for continuation of care. Vital Signs - 24 hr 06/09/19 06/09/19 06/09/19 00:30 03:30 06:55 Temperature 97.4 F L Pulse Rate 85 Respiratory 18 18 18 Rate Blood Pressure 128/71 Laboratory Tests 06/07/19 06/07/19 06/07/19 08:00 08:00 08:00 WBC 8.2 RBC 4.45 Hgb 13.2 Hct 39.0 MCV 87.6 MCH 29.7 MCHC 34.0 RDW 14.3 Plt Count 227 MPV 9.1 Sodium 142 Potassium 4.3 Chloride 109 H Carbon Dioxide 27 Anion Gap 6 L BUN 17.4 Creatinine 0.9 Est GFR (CKD-EPI)AfAm 125.13 Est GFR (CKD-EPI)NonAf 107.97 Random Glucose 108 H Calcium 8.8 Total Bilirubin 0.3 AST 29 ALT 49 Alkaline Phosphatase 104 Total Protein 6.7 Albumin 3.6 RPR Titer Nonreactive Alert o x 3 nad oob ambulating with steady gait extremities/skin:no edema; no skin breaks. A/P new pt to rehab maintain safety d/w pt with Nurse James and informed to meet with counselor to arrange for CD aftercare/MAT site suited for pt's location after discharge.
[2019-06-09] MEDS: THIAMINE HCL 100 MG TABLET (FP) PO SCH (21:09)
[2019-06-09] MEDS: QUEtiapine FUMARATE 50 MG TABLET PO SCH (21:09)
[2019-06-10 06:48] VITALS: BP 132/83; PULSE 77; TEMP 98.1
[2019-06-10] MEDS: NICOTINE POLACRILEX 4 MG GUM BUC PRN (07:49)
[2019-06-10] MEDS: BUPRENORPHINE HCL/NALOXONE 12 MG-3 MG SL FILM PACKET SL SCH (09:46)
[2019-06-10] MEDS: NICOTINE 21 MG/24 HOURS TOPICAL PATCH TD SCH (09:46)
[2019-06-10] MEDS: risperiDONE 1 MG TABLET PO SCH (09:46)
[2019-06-10] MEDS: PRENATAL VITAMINS W/ FOLIC ACID TABLET (FP) PO SCH (09:46)
--- NOTE | 2019-06-10 11:51 | PN ---
[facility] Progress Note Note: Patient is discharged today. Scripts for 30 days supply of medications( Risperdal 1 mg/bid, Seroquel 50 mg/hs) are electronically transmitted to [facility] at [address] [place], [place] [id number]
--- NOTE | 2019-06-10 12:01 | PN ---
[facility] Progress Note Note: Nurse Brenner reported to provider that pt went into another pt's room where the environmental staff was cleaning and grabbed the spray bottle. When asked to put it back, this patient directed the spray nozzle at the staff and proceeded to pour contents all over the hallways outside the room. security was called and pt was seen by Dr. Pittman. Treatment team met with patient to discuss how we can better help him. Pt is focused on her request for monthly Rx for Suboxone. The team informed patient he will be referred to [facility] for an intake today to enable him continue with his CD aftercare and Suboxone MAT. Alex Erasto, Dr. pittman, Ms Ale Osborne, Ms Di hardy, Ms Nino, Nurse Brenner, chief mechanical officer, Kel and this typewriter assembly and parts inspector in attendance. Pt apologized for spray bottle incident but did not verbalize a motive. Vital Signs - 24 hr 06/10/19 06/10/19 06/10/19 00:30 03:30 06:48 Temperature 98.1 F Pulse Rate 77 Respiratory 18 20 20 Rate Blood Pressure 132/83 alert o x 3'denied s/h/i nad oob ambulating with steady gait. A/P Pt needing another level of care [facility] has been contacted by Ms Ale Osborne for an intake at 1:00 p.m with Ms. Koo Pt is agreeable to poc
--- NOTE | 2019-06-10 12:07 | DS ---
[facility] Rehab Discharge Summary - [facility] Rehab Discharge Summary Admission Date: 06/06/19 Discharge Date: 06/10/19 - History Additional Comments: Pt is a 38 y/o male with a hx of KEEGAN and on Suboxone MAT admitted to rehab on and has been noncompliant with unit rules and regulations. Pt directed a cleanining agen spray bottle taken off her cleaning cart at an environmental staff and further discarded the rest all over the hallway floor. Pt was teamed by multidisciplinary staff and was also evaluated by psych MD, Dr. Pittman. Pt denied S/H/I and apologized for his action although offered no motive. Pt insists and maintains request of wanting a monthly supply of Suboxone and that' s his motive for coming into treatment. Pt was informed of appropriate referral to [facility] outpatient IOP/MAT program for continuation of CD treatment and MAT management. Pertinent Past History: Asthma Morbid Obesity HTN(no med) Knee pain Schizoaffective Disorder - Discharge Physical Exam Vital Signs: Vital Signs Temperature 98.1 F 06/10/19 06:48 Pulse Rate 77 06/10/19 06:48 Respiratory Rate 06/10/19 06:48 Blood Pressure 132/83 06/10/19 06:48 O2 Sat by Pulse Oximetry (%) Alert o x 3 nad oob ambulating with steady gait. Pertinent Admission Physical Exam Findings: Laboratory Tests 06/07/19 06/07/19 06/07/19 08:00 08:00 08:00 WBC 8.2 RBC 4.45 Hgb 13.2 Hct 39.0 MCV 87.6 MCH 29.7 MCHC 34.0 RDW 14.3 Plt Count 227 MPV 9.1 Sodium 142 Potassium 4.3 Chloride 109 H Carbon Dioxide 27 Anion Gap 6 L BUN 17.4 Creatinine 0.9 Est GFR (CKD-EPI)AfAm 125.13 Est GFR (CKD-EPI)NonAf 107.97 Random Glucose 108 H Calcium 8.8 Total Bilirubin 0.3 AST 29 ALT 49 Alkaline Phosphatase 104 Total Protein 6.7 Albumin 3.6 RPR Titer Nonreactive - Treatment Discharge Condition: Discharge condition good Hospital Course: Safety maintained Referred to [facility] IOP for CD aftercare - Medication Discharge Medications: Ambulatory Orders Buprenorphine HCl/Naloxone HCl [Buprenor-Nalox 12-3 mg Sl Film] 1 each SL BID Quetiapine Fumarate [Seroquel -] 50 mg PO HS #30 tablet 06/10/19 Risperidone [Risperdal -] 1 mg PO BID #60 tablet 06/10/19 - Medication-Assisted Treatment (MAT) Medication-Assisted Treatment (MAT): Yes Medication Prescribed: Suboxone MAT Follow-up Referral: [facility] 2 Vicky [id number] - Discharge Instructions Diet, activity, other medical instructions: Diet:TANJA Activity:oob ad joanna Other medical instructions:follow up with [facility] for aftercare as recommended and scheduled follow up with primary care at [place] - Follow-up Referral Minutes to complete discharge: 20 - AMA Did Patient Leave Against Medical Advice: No Additional Comments: Referred to [facility] for appropriate level of care. Pt is not engaged in the inpatient treatment setting. Pt reports he came here to get his monthly supply of Suboxone although he has no information on a primary prescriber but states he gets it whenever he goes to facilities. pt will not be getting any Rx for Suboxone from here today. Pt last Rx picked up on 06/05/19 for Suboxone 12 mg/3 mg sl BID #14 x 7 days. Pt instructed to follow up at [facility] for MAT management.
== END 2019-06-10 11:55 | disposition left against medical advice (07) | DRG 772 ==
LOC: YASAS 13:40 → Y5N 18:22
PROVIDERS: ADMIT Allergy & Immunology; ATTEND Allergy & Immunology
PROC: HZ42ZZZ Group Counseling for Substance Abuse Treatment, Cognitive-Behavioral (ICD-10-PCS; principal; 2019-06-06)
DX: F10.20 Alcohol dependence, uncomplicated (principal); F11.20 Opioid dependence, uncomplicated; F14.20 Cocaine dependence, uncomplicated; F12.20 Cannabis dependence, uncomplicated; F25.9 Schizoaffective disorder, unspecified; F19.282 Other psychoactive substance dependence with psychoactive substance-induced sleep disorder; F91.8 Other conduct disorders; I10 Essential (primary) hypertension; J45.909 Unspecified asthma, uncomplicated; E66.01 Morbid (severe) obesity due to excess calories; Z68.41 Body mass index [BMI] 40.0-44.9, adult; Z91.19 Patient's noncompliance with other medical treatment and regimen; Z91.018 Allergy to other foods; Z91.5 Personal history of self-harm
CPT/HCPCS: 36415; 80053; 85027; 86593; J2794

== ENCOUNTER 2019-06-17 20:35 | Emergency (ER) | payer OTHER ==
[2019-06-17 20:44] VITALS: BP 120/73; PULSE 83; TEMP 97.6; BMI 32.7
--- NOTE | 2019-06-17 20:50 | PDOC ---
Rapid Medical Evaluation Time Seen by Provider: 06/17/19 20:40 Medical Evaluation: Allergies Allergy/AdvReac Type Severity Reaction Status Date / Time Pork/Porcine Containing Allergy Severe Rash Verified 06/17/19 20:44 Products No Known Drug Allergies Allergy Verified 06/17/19 20:44 Vital Signs Temp Pulse Resp BP Pulse Ox 97.6 F 83 18 120/73 97 06/17/19 20:40 06/17/19 20:40 06/17/19 20:40 06/17/19 20:40 06/17/19 20:40 06/17/19 20:45 Pt c/o: body aches, head cold, nasal congestion, dat rib pain x 2-3 days Pt on brief exam: vss, lcta, dat chest tenderness pt ordered for: none Pt to proceed to the ED Discharge Disposition - Diagnosis Cough, Eloped from emergency department - Discharge Dispostion Disposition: ELOPED Condition at time of disposition: Stable - Referrals - Patient Instructions - Post Discharge Activity
== END 2019-06-18 01:40 | disposition left against medical advice (07) ==
LOC: JERFT 20:35 → JER 20:35
DX: Z53.21 Procedure and treatment not carried out due to patient leaving prior to being seen by health care provider (principal)
CPT/HCPCS: 99281-25

== ENCOUNTER 2019-11-14 01:12 | Emergency (ER) | payer OTHER ==
--- NOTE | 2019-11-14 02:44 | PDOC ---
History of Present Illness - General Chief Complaint: Asthma Stated Complaint: ASTHMA,SHORTNESS OF BREATH - History of Present Illness Initial Comments: Devan Petersen is a 39 y/o male with PMH significant for asthma, alcohol use disorder, substance use disorder, presenting today with asthma. Reports that he has a hx of asthma and feels that he is having an exacerbation. No shortness of breath. No fever. No chest pain. No abd pain. No dizziness. No headache. No back pain. No dysuria. No diarrhea. No leg swelling. Past History - Medical History Allergies/Adverse Reactions: Allergies Allergy/AdvReac Type Severity Reaction Status Date / Time Pork/Porcine Containing Allergy Severe Rash Verified 11/14/19 03:09 Products No Known Drug Allergies Allergy Verified 11/14/19 03:09 Home Medications: Ambulatory Orders Buprenorphine HCl/Naloxone HCl [Buprenor-Nalox 12-3 mg Sl Film] 1 each SL BID 06/06/19 Quetiapine Fumarate [Seroquel -] 50 mg PO HS #30 tablet 06/10/19 Risperidone [Risperdal -] 1 mg PO BID #60 tablet 06/10/19 Anemia: No Asthma: Yes (on albuterol inhaler) Cancer: No Cardiac Disorders: No CVA: No COPD: No CHF: No Dementia: No Diabetes: No GI Disorders: No Disorders: No HTN: Yes Hypercholesterolemia: No Kidney Stones: No Liver Disease: No Psychiatric Problems: Yes (BIPOLAR; MIGRAINE;SCHIZOAFFECTIVEDISORDER) Seizures: No Thyroid Disease: No - Surgical History Abdominal Surgery: No Appendectomy: Yes (2005) Cardiac Surgery: No Cholecystectomy: No Gastric Stapling: No GI Surgery: No Lung Surgery: No Neurologic Surgery: No Orthopedic Surgery: No - Reproductive History Testicular Surgery: No - Immunization History Immunization Up to Date: Yes - Psycho-Social/Smoking History Smoking History: Current every day smoker Have you smoked in the past 12 months: Yes Number of Cigarettes Smoked Daily: 20 Cigars Per Day: 0 'Breaking Loose' booklet given: 02/25/19 Review of Systems - Review of Systems Comments:: GENERAL/CONSTITUTIONAL: No fever or chills. No weakness._ HEAD, EYES, EARS, NOSE AND THROAT: No change in vision. No change in hearing. No sore throat._ CARDIOVASCULAR: No chest pain or shortness of breath. RESPIRATORY: Denies cough, hemoptysis_ GASTROINTESTINAL: No nausea, vomiting, diarrhea or constipation._ GENITOURINARY: No dysuria, frequency, or change in urination._ MUSCULOSKELETAL: No joint or muscle swelling or pain. No neck or back pain._ SKIN: No rash_ NEUROLOGIC: No headache, vertigo, loss of consciousness, or change in strength/sensation._ ENDOCRINE: No increased thirst. No abnormal weight change_ HEMATOLOGIC/LYMPHATIC: No anemia, easy bleeding, or history of blood clots._ ALLERGIC/IMMUNOLOGIC: No hives or skin allergy._ *Physical Exam - Physical Exam GENERAL: Awake, alert, and oriented to person/place/time, in no acute distress_ HEAD: No signs of trauma, normocephalic, atraumatic _ EYES: PERRLA, EOMI, sclera anicteric, conjunctiva clear_ ENT: Hearing grossly normal, nares patent, oropharynx clear without exudates. No uvular deviation. Moist mucosa_ NECK: Normal ROM, supple, no lymphadenopathy, JVD, or masses_ LUNGS: No distress, speaks in full sentences, clear to auscultation bilaterally _ HEART: Regular rate and rhythm, normal S1 and S2, no murmurs appreciated, peripheral pulses normal and equal bilaterally._ ABDOMEN: Soft, nontender, normoactive bowel sounds. No guarding, no rebound. No masses_ EXTREMITIES: Normal inspection, Normal range of motion, no edema. No clubbing or cyanosis_ NEUROLOGICAL: Cranial nerves II through XII grossly intact. Normal speech, normal gait, no focal sensorimotor deficits _ SKIN: Warm, Dry, normal turgor, no rashes or lesions noted_ Medical Decision Making - Medical Decision Making 11/14/19 02:43 39M with past history of asthma, ETOH use disorder, substance use disorder, presenting today with concerns that he is having an asthma exacerbation. Pt is in no respiratory distress. No wheezing. No shortness of breath. No indication for duonebs at this time. Will obtain EKG. 11/14/19 03:35 Pt refused EKG. Requesting multiple sandwiches, crackers and juice. 11/14/19 04:17 Pt does not want additional testing or further work up. Requesting additional meal items. The patient has requested to leave the ED against medical advice. The patient reason(s) for leaving include, but are not limited to, the following: does not want further work up. I believe this patient is of sound mind and competent to refuse medical care. The patient is responding and asking questions appropriately. The patient is oriented to person, place and time. The patient is not psychotic, delusional, suicidal, homicidal or hallucinating. The patient demonstrates a normal mental capacity to make decisions regarding their healthcare. The patient is clinically sober and does not appear to be under the influence of any illicit drugs at this time. The patient has been advised of the risks, in layman terms, of leaving AMA which include, but are not limited to , coma, permanent disability, loss of current lifestyle, delay in diagnosis. Alternatives have been offered - the patient remains steadfast in their wish to leave. The patient has been advised that should they change their mind they are welcome to return to this hospital, or any other, at any time. The patient understands that in no way does an AMA discharge mean that I do not want them to have the best medical care available. To this end, I have provided appropriate prescriptions, referrals, and discharge instructions. The patient did sign AMA paperwork. The above discussion was witnessed by another member of staff. Discharge - Discharge Information Problems reviewed: Yes Clinical Impression/Diagnosis: Heroin dependence, Alcohol abuse Asthma Qualifiers: Asthma severity: unspecified severity Condition: Guarded Disposition: AGAINST MEDICAL ADVICE - Admission No - Follow up/Referral Referrals: [facility] – [place] Internal Med at [place] [Provider Group] - Patient Discharge Instructions Additional Instructions: Please make a follow up appointment with a primary care doctor (referral provided here). If you experience any new, worsening, or concerning symptoms, including chest pain or shortness of breath, please return to the emergency room. - Post Discharge Activity
[2019-11-14 03:09] VITALS: BP 128/78; PULSE 91; TEMP 97.1; BMI 38.5
--- NOTE | 2019-11-14 03:56 | PDOC ---
Attending Attestation - Resident Resident Name: Mahendra Phan - ED Attending Attestation I have performed the following: I have examined & evaluated the patient, The case was reviewed & discussed with the resident, I agree w/resident's findings & plan, Exceptions are as noted - HPI HPI: 11/20/19 20:11 See resident HPI - Physicial Exam PE: 11/20/19 20:11 Agree with documented exam - Medical Decision Making 11/20/19 20:11 C/o asthma attack but exam inconsistent with complaint, p/w increased wob, no resp distress, normal lung exam pt refused further evaluation or care Pt was AOx3, did not appear acutely intoxicated, had capacity and understood the implications of leaving against medical advice AMA Discharge - Discharge Information Problems reviewed: Yes Clinical Impression/Diagnosis: Heroin dependence, Alcohol abuse Asthma Qualifiers: Asthma severity: unspecified severity Condition: Guarded Disposition: AGAINST MEDICAL ADVICE - Follow up/Referral Referrals: [facility] Internal Med at [place] [Provider Group] - Patient Discharge Instructions Additional Instructions: Please make a follow up appointment with a primary care doctor (referral provided here). If you experience any new, worsening, or concerning symptoms, including chest pain or shortness of breath, please return to the emergency room. - Post Discharge Activity
== END 2019-11-14 04:15 | disposition left against medical advice (07) ==
LOC: JER 01:12
DX: F11.20 Opioid dependence, uncomplicated (principal); F10.10 Alcohol abuse, uncomplicated
CPT/HCPCS: 99282-25

== ENCOUNTER 2020-07-01 00:21 | Emergency (ER) | payer OTHER ==
[2020-07-01 00:59] VITALS: BP 118/97; PULSE 83; TEMP 97.8; BMI 27.1
== END 2020-07-01 05:01 | disposition home or self-care (01) ==
LOC: JER 00:21
DX: S61.214A Laceration without foreign body of right ring finger without damage to nail, initial encounter (principal)
CPT/HCPCS: 99282-25